=== PATIENT | male | born 1955 | race Caucasian/White ===

== ENCOUNTER 2017-06-28 07:02 | Emergency (ER) | payer MEDICARE ==
--- NOTE | 2017-06-28 07:32 | EDM.PDOC ---
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 David Fang.He claims he has been careful and not lifting anything heavy and Pt claims that he was doing well until today morning. He felt a pop in his right lower chest today morning and since has been having pain. no fever or chills. No shortness of breath. Onset: Today Onset Date: 06/28/17 Onset Time: 06:00 Location: Reports: Chest Quality: Reports: Ache Severity: Moderate Improves with: Reports: None Worsens with: Reports: None Associated Symptoms: Reports: Chest Pain. Denies: Confusion, Cough, Fever/ Chills, Nausea/Vomiting, Rash, Seizure, Shortness of Breath, Syncope, Weakness - Related Data Allergies Allergy/AdvReac Type Severity Reaction Status Date / Time fentanyl Allergy Cannot Verified 06/28/17 08:32 Remember morphine Allergy Cannot Verified 06/28/17 08:32 Remember Serotonin 5HT-3 Antagonists Allergy Cannot Verified 06/28/17 08:32 Remember Home Meds: Home Meds Aspirin [Ecotrin] 81 mg PO DAILY 07/29/14 [History] Gabapentin 1 tab PO TID 07/29/14 [History] Insulin Isophane NPH, Human [NovoLIN N] 80 units SQ BID 07/29/14 [History] Insulin Regular, Human [Novolin R] 65 units SQ BID 07/29/14 [History] Lisinopril 1 tab PO DAILY 07/29/14 [History] Metoprolol Tartrate [Lopressor] 100 mg PO BID 07/29/14 [History] Multivits-Min/FA/Lycopene/Lut [Elissa Senior] 1 tab PO DAILY 07/29/14 [History] Zolpidem [Ambien] 1 tab PO BEDTIME 07/29/14 [History] amLODIPine Besylate [Amlodipine Besylate] 1 tab PO DAILY 07/29/14 [History] buPROPion [buPROPion XL] 2 tab PO DAILY 07/29/14 [History] lamoTRIgine [Lamotrigine] 200 mg PO BEDTIME 07/29/14 [History] Allopurinol [Zyloprim] 1 tab PO DAILY 06/28/17 [History] Furosemide 20 mg PO DAILY 06/28/17 [History] Hydrocodone/Acetaminophen [Hydrocodon-Acetaminoph 7.5-325] 1 tab PO Q6HR PRN [History] Leflunomide [Arava] 1 tab PO DAILY 06/28/17 [History] Potassium Chloride 1 tab PO DAILY 06/28/17 [History] clonazePAM [Clonazepam] 1 mg PO BID 06/28/17 [History] traMADol HCl [Tramadol HCl] 1 tab PO Q6HR PRN 06/28/17 [History] Past Medical History Other HEENT History: ELEM Other Cardiovascular History: stent 1993 Other Genitourinary History: BPH, fiborus Social & Family History - Tobacco Use Smoking Status *Q: Former Smoker Years of Tobacco use: 25 Used Tobacco, but Quit: Yes Month/Year Tobacco Last Used: october Second Hand Smoke Exposure: No - Alcohol Use Days Per Week of Alcohol Use: 0 - Recreational Drug Use Recreational Drug Use: No ED ROS GENERAL - Review of Systems Review Of Systems: See Below Constitutional: Denies: Fever, Chills HEENT: Denies: Rhinitis, Sinus Problem, Throat Pain, Throat Swelling Respiratory: Reports: Pleuritic Chest Pain. Denies: Wheezing, Cough, Sputum Cardiovascular: Denies: Chest Pain, Lightheadedness Endocrine: Denies: Fatigue GI/Abdominal: Denies: Abdominal Pain, Nausea, Vomiting : Denies: Dysuria, Flank Pain Musculoskeletal: Denies: Shoulder Pain, Arm Pain, Back Pain Skin: Reports: Bruising, Erythema. Denies: Pruritis, Rash Neurological: Denies: Confusion, Dizziness, Headache ED EXAM, GENERAL - Physical Exam Exam: See Below Exam Limited By: No Limitations General Appearance: Alert, WD/WN, No Apparent Distress Eye Exam: Bilateral Eye: EOMI, PERRL Ears: Normal External Exam, Normal Canal, Hearing Grossly Normal, Normal TMs Ear Exam: Bilateral Ear: Auricle Normal, Canal Normal, TM normal Nose: Normal Inspection, Normal Mucosa, No Blood Throat/Mouth: Normal Inspection, Normal Lips, Normal Teeth, Normal Gums, Normal Oropharynx, Normal Voice, No Airway Compromise Head: Atraumatic, Normocephalic Neck: Normal Inspection, Supple, Non-Tender, Full Range of Motion Respiratory/Chest: No Respiratory Distress, Lungs Clear, Normal Breath Sounds, No Accessory Muscle Use, Other (There is a midline incison seen over the sternum extending from sternal notch to xyphoid sternum. there is lear serous drainage. Also there is some swelling of the right chest with minimal skin erythema seen over the right pectoral region. on plaption pt is tender along the surgical site, more so over the right 4 and 5 costochondral junctions. there is postive crepitus felt in the same region.) Cardiovascular: Normal Peripheral Pulses, Regular Rate, Rhythm, No Edema, No Gallop, No JVD, No Murmur, No Rub Peripheral Pulses: 2+: Brachial (L), Brachial (R), Radial (L), Radial (R) GI/Abdominal: Normal Bowel Sounds, Soft, Non-Tender, No Organomegaly, No Distention, No Abnormal Bruit, No Mass Extremities: Normal Inspection, Normal Range of Motion, Non-Tender, Normal Capillary Refill, No Pedal Edema Neurological: Alert, Oriented, CN II-XII Intact, Normal Cognition, Normal Gait, Normal Reflexes, No Motor/Sensory Deficits Skin Exam: Warm, Intact Course - Vital Signs Text/Narrative:: Pt's chest xray appears normal, all the three sternal plates are seen in place. As pt has been having right lower chest wall pain with crepitus, I did get CT Chest, to get a 3 dimensional view of the plate. On CT scan of chest, the plate does appear in place. His CBC is normal. He has mild swelling of the right pectoral region, probably post-surgical swelling. I do not see any signs of infection of the surgical wound. I did call Dr. Fang and discuss patient with him. He reassured that, if there is no acute deformity and CT chest appears normal no further workup necessary. Advised patient to rest and take it easy. Avoid lifting heavy weight. Continue home medications and pain meds as prescribed. Dr. Fang has advised patient to call his office [place] on Thursday and set up appointment to be seen on Thursday. Pt understands and agrees with the plan. Last Recorded V/S: Last Vital Signs Temp 95.9 F 06/28/17 07:03 Pulse 70 06/28/17 07:33 Resp 20 06/28/17 07:33 BP 160/71 H 06/28/17 07:33 Pulse Ox 99 06/28/17 07:03 - Orders/Labs/Meds Orders: Active Orders 24 hr Category Date Time Status Chest 2V [CR] Stat Exams 06/28/17 07:26 Taken Chest wo Cont [CT] Stat Exams 06/28/17 Taken Labs: Laboratory Tests 06/28/17 Range/Units 07:55 WBC 10.4 (4.0-11.0) K/uL RBC 4.19 L (4.50-6.50) M/uL Hgb 12.3 L (13.0-18.0) g/dL Hct 37.0 L (40.0-54.0) % MCV 88 (76-96) fL MCH 29.4 (27.0-32.0) pg MCHC 33.2 (31.0-35.0) g/dL RDW 16.4 H (11.0-16.0) % Plt Count 147 L (150-400) K/uL MPV 9.7 (6.0-10.0) fL Neut % (Auto) 80.2 H (45.0-70.0) % Lymph % (Auto) 9.4 L (20.0-40.0) % [place] % (Auto) 7.9 (3.0-10.0) % Eos % (Auto) 2.2 (1.0-5.0) % Baso % (Auto) 0.3 (0.0-0.5) % Neut # (Auto) 8.35 H (2.00-7.50) K/uL Lymph # (Auto) 0.98 L (1.50-4.00) K/uL [place] # (Auto) 0.82 H (0.20-0.80) K/uL Eos # (Auto) 0.23 (0.04-0.40) K/uL Baso # (Auto) 0.03 (0.02-0.10) K/uL Departure - Departure Time of Disposition: 09:00 Disposition: Home, Self-Care 01 Condition: Fair Clinical Impression: Pain at surgical incision - Discharge Information Referrals: PCP,None [Primary Care Provider] - Forms: ED Department Discharge Additional Instructions: Pt's chest xray appears normal, all the three sternal plates are seen in place. As pt has been having right lower chest wall pain with crepitus, I did get CT Chest, to get a 3 dimensional view of the plate. On CT scan of chest, the plate does appear in place. His CBC is normal. He has mild swelling of the right pectoral region, probably post-surgical swelling. I do not see any signs of infection of the surgical wound. I did call Dr. Fang and discuss patient with him. He reassured that, if there is no acute deformity and CT chest appears normal no further workup necessary. Advised patient to rest and take it easy. Avoid lifting heavy weight. Continue home medications and pain meds as prescribed. Dr. Fang has advised patient to call his office [place] on Thursday and set up appointment to be seen on Thursday. Pt understands and agrees with the plan. - Problem List & Annotations (1) Pain at surgical incision SNOMED Code(s): 030609647 Code(s): L76.82 - OTH POSTPROCEDURAL COMPLICATIONS OF SKIN, SUBCU Status: Acute Current Visit: Yes - Problem List Review Problem List Initiated/Reviewed/Updated: Yes - My Orders Last 24 Hours: My Active Orders 06/28/17 Chest wo Cont [CT] Stat 06/28/17 07:26 Chest 2V [CR] Stat - Assessment/Plan Last 24 Hours: My Active Orders 06/28/17 Chest wo Cont [CT] Stat 06/28/17 07:26 Chest 2V [CR] Stat Assessment:: S/P sternal plating with post surgical pain Plan: Pt's chest xray appears normal, all the three sternal plates are seen in place. As pt has been having right lower chest wall pain with crepitus, I did get CT Chest, to get a 3 dimensional view of the plate. On CT scan of chest, the plate does appear in place. His CBC is normal. He has mild swelling of the right pectoral region, probably post-surgical swelling. I do not see any signs of infection of the surgical wound. I did call Dr. Fang and discuss patient with him. He reassured that, if there is no acute deformity and CT chest appears normal no further workup necessary. Advised patient to rest and take it easy. Avoid lifting heavy weight. Continue home medications and pain meds as prescribed. Dr. Fang has advised patient to call his office [place] on Thursday and set up appointment to be seen on Thursday. Pt understands and agrees with the plan.
[2017-06-28 07:34] VITALS: BP 160/71
--- NOTE | 2017-06-29 03:42 | CR ---
PA AND LATERAL CHEST, 06/28/17 Comparison made to a prior exam dated 11/26/16. The heart remains enlarged, unchanged The patient is status post median sternotomy. There is pleural thickening in the left hemithorax where there is blunting of the left costophrenic angle consistent with a left pleural effusion or pleural scar. There are also mild atelectatic changes in the left lung base. The right lung is clear. No other significant findings. [id number] [facility]
--- NOTE | 2017-06-29 03:51 | CT ---
UNENHANCED CHEST CT, 06/28/17 Multislice acquisition through the chest without IV contrast was performed. No priors. Breathing motion artifact degrades image quality. There is a small left pleural effusion. It does appear to be slightly loculated laterally. There are atelectatic changes within the left lung base. The lungs are otherwise clear. No pneumothorax. The heart is enlarged. There are coronary artery calcifications. No significant pericardial effusion. There is soft tissue emphysema noted anteriorly at the incision site and adjacent to the internal sternal fixation devices This may be related to the prior surgery. A gas-forming infectious process cannot, however, be excluded . No hilar or mediastinal adenopathy. The spleen and liver appear mildly prominent, however they are incompletely visualized. There is a small amount of ascites noted adjacent to the liver. [id number] [facility]
== END 2017-06-28 09:02 | disposition home or self-care (01) ==
LOC: LB.ED 07:02
DX: G89.18 Other acute postprocedural pain (principal); Z98.890 Other specified postprocedural states; Z88.8 Allergy status to other drugs, medicaments and biological substances; Z88.5 Allergy status to narcotic agent; Z79.4 Long term (current) use of insulin; Z79.899 Other long term (current) drug therapy; Z87.891 Personal history of nicotine dependence; Z96.7 Presence of other bone and tendon implants
CPT/HCPCS: 36415; 71046; 71250; 85025; 99282; 99285-25

== ENCOUNTER 2018-10-26 09:18 | Emergency (ER) | payer MEDICARE, MEDICAID ==
--- NOTE | 2018-10-26 09:42 | EDM.PDOC ---
ED HPI GENERAL MEDICAL PROBLEM - General Chief Complaint: Lower Extremity Injury/Pain Stated Complaint: FALL AT HOME; HIT HEAD Time Seen by Provider: 10/26/18 09:40 Source of Information: Reports: Patient, RN History Limitations: Reports: No Limitations - History of Present Illness INITIAL COMMENTS - FREE TEXT/NARRATIVE: 63 yr male presents with fall from 2 days ago in his home, he presents with ambulance. States he thought he would get better, but has increase in pain to right knee, left toes, neck and head. States he hit hard and is worried about a head fracture. Right Knee Pain Score (Numeric/FACES): 8 - Related Data Allergies Allergy/AdvReac Type Severity Reaction Status Date / Time morphine Allergy Cannot Verified 10/26/18 10:24 Remember Serotonin 5HT-3 Antagonists Allergy Cannot Verified 10/26/18 10:24 Remember fentanyl AdvReac Cannot Verified 10/26/18 10:24 Remember Home Meds: Home Meds Aspirin [Ecotrin] 325 mg PO DAILY 07/29/14 [History] Gabapentin 2 tab PO QPM 07/29/14 [History] Insulin Isophane NPH, Human [NovoLIN N] See Protocol SQ TIDMEALS 07/29/14 [ History] Insulin Regular, Human [Novolin R] See Protocol SQ TIDMEALS 07/29/14 [History] Lisinopril 40 mg PO DAILY 07/29/14 [History] Metoprolol Tartrate [Lopressor] 50 mg PO BID 07/29/14 [History] Multivits-Min/FA/Lycopene/Lut [Sentry Senior] 1 tab PO DAILY 07/29/14 [History] amLODIPine Besylate [Amlodipine Besylate] 10 mg PO DAILY 07/29/14 [History] buPROPion [buPROPion XL] 300 tab PO DAILY 07/29/14 [History] Furosemide 60 mg PO DAILY 06/28/17 [History] lamoTRIgine [Lamictal] 200 mg PO DAILY 06/28/17 [History] Insulin Regular, Human [Novolin R] See Protocol SQ TID PRN 09/15/18 [History] Nicotine Polacrilex [Nicotine Lozenge] 2 mg PO DAILY PRN 09/15/18 [History] QUEtiapine Fumarate [Quetiapine Fumarate] 200 mg PO QPM 09/15/18 [History] Sildenafil Citrate 60 mg PO DAILY PRN 09/15/18 [History] Allopurinol [Zyloprim] 150 mg PO QPM 09/19/18 [History] Allopurinol [Zyloprim] 300 mg PO DAILY 09/19/18 [History] Docusate Sodium 100 mg PO DAILY 09/19/18 [History] Nitroglycerin [Nitrostat] 0.4 mg PO ASDIRECTED PRN 09/19/18 [History] QUEtiapine [SEROquel] 100 mg PO DAILY 09/19/18 [History] Vitamin B6-pyridOXINE 50 mg PO DAILY 09/19/18 [History] atorvaSTATin [Lipitor] 20 mg PO BEDTIME 09/19/18 [History] predniSONE [Prednisone] 5 mg PO DAILY 09/19/18 [History] traMADol [Ultram] 50 mg PO TID 09/19/18 [History] Past Medical History HEENT History: Reports: Impaired Vision Other HEENT History: [place] Cardiovascular History: Reports: High Cholesterol, Hypertension, [place], Stents Other Cardiovascular History: stent 1993 Respiratory History: Reports: Other (See Below) Other Respiratory History: Emphysema Genitourinary History: Reports: Diabetic Nephropathy, Urinary Incontinence Other Genitourinary History: BPH, fiborus Musculoskeletal History: Reports: Arthritis, Gout, Other (See Below) Other Musculoskeletal History: finger fractures Psychiatric History: Reports: Bipolar, Depression, Panic Attack Endocrine/Metabolic History: Reports: Diabetes, Type II Dermatologic History: Reports: Other (See Below) Other Dermatologic History: Medication for SA lesions - Past Surgical History Musculoskeletal Surgical History: Reports: None Social & Family History - Caffeine Use Caffeine Use: Reports: Coffee, Soda ED ROS GENERAL - Review of Systems Review Of Systems: See Below Constitutional: Reports: No Symptoms HEENT: Reports: Glasses, Other (Head and neck pain) Respiratory: Reports: No Symptoms Cardiovascular: Reports: Edema Endocrine: Reports: No Symptoms GI/Abdominal: Reports: No Symptoms : Reports: No Symptoms Musculoskeletal: Reports: Neck Pain, Leg Pain (Pain to right knee), Foot Pain ( Pain to toes to left foot ) Skin: Reports: Bruising (left toes), Other (abrasion back of head) Neurological: Reports: No Symptoms Psychiatric: Reports: No Symptoms Hematologic/Lymphatic: Reports: No Symptoms ED EXAM, GENERAL - Physical Exam Exam: See Below Exam Limited By: No Limitations General Appearance: Alert, No Apparent Distress Ears: Hearing Grossly Normal Nose: Normal Inspection. No: Nasal Tenderness Throat/Mouth: Normal Inspection, Normal Lips, Normal Voice, No Airway Compromise Head: Normocephalic, Other (abrasion to back of head) Neck: Normal Inspection, Supple Respiratory/Chest: No Respiratory Distress, Lungs Clear, Normal Breath Sounds Cardiovascular: Normal Peripheral Pulses, Regular Rate, Rhythm, Other (edema noted to lower legs, increased to right lower leg) Peripheral Pulses: 2+: Dorsalis Pedis (L), Dorsalis Pedis (R) GI/Abdominal: Normal Bowel Sounds, Soft, Non-Tender (Male) Exam: Deferred Rectal (Males) Exam: Deferred Back Exam: Normal Inspection Extremities: Normal Capillary Refill, Pedal Edema, Limited Range of Motion ( Limited ROM r/t tenderness to right knee and left toes. Good strength to toes and legs.) Neurological: Alert, Oriented, Normal Cognition Psychiatric: Normal Affect, Normal Mood Skin Exam: Warm, Dry, Normal Color Course - Vital Signs Last Recorded V/S: Last Vital Signs Temp 98.0 F 10/26/18 12:36 Pulse 55 L 10/26/18 12:36 Resp 16 10/26/18 12:36 BP 120/61 10/26/18 12:36 Pulse Ox 96 10/26/18 12:36 - Orders/Labs/Meds Orders: Active Orders 24 hr Category Date Time Status Cardiac Monitoring [RC] .As Directed Care 10/26/18 09:40 Active Labs: Laboratory Tests 10/26/18 10/26/18 10/26/18 Range/Units 09:50 10:30 10:30 WBC 7.9 D (4.0-11.0) K/uL RBC 3.27 L (4.50-6.50) M/uL Hgb 11.9 L (13.0-18.0) g/dL Hct 34.2 L (40.0-54.0) % MCV 105 H (76-96) fL MCH 36.4 H D (27.0-32.0) pg MCHC 34.8 (31.0-35.0) g/dL RDW 22.6 H (11.0-16.0) % Plt Count 121 L D (150-400) K/uL MPV 9.8 (6.0-10.0) fL Neut % (Auto) 76.6 H (45.0-70.0) % Lymph % (Auto) 11.8 L (20.0-40.0) % [place] % (Auto) 7.5 (3.0-10.0) % Eos % (Auto) 3.7 (1.0-5.0) % Baso % (Auto) 0.4 (0.0-0.5) % Neut # (Auto) 6.01 (2.00-7.50) K/uL Lymph # (Auto) 0.93 L (1.50-4.00) K/uL [place] # (Auto) 0.59 (0.20-0.80) K/uL Eos # (Auto) 0.29 (0.04-0.40) K/uL Baso # (Auto) 0.03 (0.02-0.10) K/uL Sodium 138 (136-145) mmol/L Potassium 4.6 (3.5-5.1) mmol/L Chloride 99 (98-107) mmol/L Carbon Dioxide 32.6 H D (21.0-32.0) mmol/L Anion Gap 11.0 (5.0-15.0) mmol/L BUN 20 (8-26) mg/dL Creatinine 1.35 H (0.70-1.30) mg/dL Est Cr Clr Drug Dosing 59.88 mL/min Estimated GFR (MDRD) 53 L (>60) MLS/MIN BUN/Creatinine Ratio 14.8 (6-25) Glucose 145 H (74-100) mg/dL Calcium 8.9 (8.5-10.1) mg/dL Total Bilirubin 1.3 H (0.0-1.0) mg/dL AST 42 H (15-37) U/L ALT 39 (12-78) U/L Alkaline Phosphatase 183 H (46-116) U/L Troponin I < 0.017 (0.000-0.060) ng/mL B-Natriuretic Peptide 268 H (0-125) pg/mL Total Protein 7.7 (6.4-8.2) g/dL Albumin 3.4 (3.4-5.0) g/dL Globulin 4.3 H (2.2-4.2) g/dL Albumin/Globulin Ratio 0.8 (0.8-2.0) Meds: Medications Discontinued Medications Generic Name Dose Route Start Last Admin Trade Name José KIMBLE Reason Stop Dose Admin Ketorolac Tromethamine 30 mg 10/26/18 12:51 10/26/18 12:57 Toradol IM 10/26/18 12:52 30 mg ONETIME ONE Administration Ketorolac Tromethamine Confirm 10/26/18 13:01 Toradol Administered 10/26/18 13:02 Dose 30 mg .ROUTE .STK-MED ONE - Re-Assessments/Exams Free Text/Narrative Re-Assessment/Exam: 10/27/18 07:49 LE This fall in the home was a couple days prior. States he thought he would start feeling better and so didn't come in to clinic or ER. Continued pain to back of head, neck, right knee and left toes. Some ecchymosis noted to left toes, small abrasion to occiput of head. CT of head and neck. No acute fractures noted, but some artifact with CT of neck. Pt has been ambulatory in his apartment and to waiting area of the apartment building. X-ray of right knee and left foot, with no fracture noted to right knee and fracture noted to 2nd toe of left foot, non displaced fracture. Ice applied to area and toe taped to third toe. Notified pt of results of labs, CT and x-ray. Pt requesting pain medication. He does have Tramadol at home. Toradol 30 mg IM given. Discussed use of Hydrocodone. Pt states he doesn't want to be addicted to narcotics, but states is having significant pain. Rx for Hydrocodone/APAP 5/325 mg one half tablet bid X 3 days. RTC to PCP next week for follow-up or sooner if increase in pain. Departure - Departure Time of Disposition: 13:09 Disposition: Home, Self-Care 01 Condition: Good Clinical Impression: Fracture of toe of left foot, Swelling of both lower extremities - Discharge Information *PRESCRIPTION DRUG MONITORING PROGRAM REVIEWED*: Not Applicable *COPY OF PRESCRIPTION DRUG MONITORING REPORT IN PATIENT JACKY: Not Applicable Referrals: PCP,None [Primary Care Provider] - Forms: ED Department Discharge Additional Instructions: Wear shoes when getting up/walking. Take your time from lying to sitting - no quick movements. Ice to toes and knee for 20 minutes 4 times/day as needed. Follow up with primary DrMarry for next week November 02 at 0830 am. - My Orders Last 24 Hours: My Active Orders 10/26/18 09:40 Cardiac Monitoring [RC] .As Directed - Assessment/Plan Last 24 Hours: My Active Orders 10/26/18 09:40 Cardiac Monitoring [RC] .As Directed Plan: Fracture of 2nd left toe after fall in home 2 days ago, muscle strain to neck and right knee pain: X-rays and CT completed, no fracture to neck or head noted, but some artifact to cervical spine, Recommend use of ice to toe and neck as needed. Continue medications as at home. Toradol 30 mg IM X one dose. Rx for Hydrocodone/APAP one half tablet bid X 3 days prn. RTC next week with PCP.
--- NOTE | 2018-10-26 11:23 | CT ---
DATE OF SERVICE: 10/26/2018 CLINICAL DATA: Fall Cervical spine CT: Multislice axial acquisition from the base of the skill to T3 was performed. Axial images and sagittal and coronal reformations are reviewed. Motion artifact degrades image quality on most of the images. The vertebral bodies are of average height. I do not see a fracture, however, subtle fractures cannot be excluded. There is a slight reversal of normal cervical lordosis on the sagittal reformations. This is most likely positional or due to muscle spasm. There is degenerative disc disease throughout the cervical spine. There is facet joint hypertrophy at multiple levels. The soft tissues are unremarkable. The visualized lung apices are clear. Impression: No evidence of fracture, however, significant motion artifact degrades image quality. Repeat exam should be considered. MTDD
--- NOTE | 2018-10-26 11:26 | CT ---
DATE OF SERVICE: 10/26/2018 CLINICAL DATA: Fall Unenhanced brain CT: Multislice acquisition through the brain without IV contrast was performed. No priors. There is mild diffuse cerebral atrophy. No masses or mass effect. No intracranial hemorrhage. No evidence of acute or subacute infarct. There is minimal mucosal thickening in the ethmoid sinuses consistent with chronic sinusitis. No fracture. Impression: No acute intracranial abnormalities. MTDD
--- NOTE | 2018-10-26 11:28 | CR ---
Date of Service: 10/26/18 Clinical Data: trauma AP PORTABLE CHEST: The is exam is under-penetrated. Comparison is made to a prior exam dated 04/26/18. The heart is enlarged. It is probably accentuated by the poor inspiration. The visualized lungs are clear. No pneumothorax. No pleural effusions. The patient is status post median sternotomy. [id number] [facility]
--- NOTE | 2018-10-26 11:31 | CR ---
Date of Service: 10/26/18 Clinical Data: fell at home RIGHT KNEE: Mild tricompartment osteoarthritic changes. There is a small joint effusion. No acute abnormalities. There are vascular calcifications in the soft tissues. [id number] [facility]
--- NOTE | 2018-10-26 11:38 | CR ---
Date of Service: 10/26/18 Clinical Data: fell at home LEFT FOOT: There is soft tissue swelling over the dorsum of the foot. There is a minimally displaced oblique fracture through the mid and distal proximal phalanx of the second toe. There is also a questionable lucency through the proximal phalanx of the fourth toe. No other acute abnormalities. There are osteoarthritic changes involving multiple joints. There is a plantar calcaneal spur. [id number] [facility]
[2018-10-26 12:38] VITALS: BP 120/61; PULSE 55
[2018-10-26] MEDS ORDERED: Ketorolac 30 MG/ML SDV IM ONE (12:51)
[2018-10-26] MEDS ORDERED: Ketorolac 30 MG/ML SDV ONE (13:01)
== END 2018-10-26 13:09 | disposition home or self-care (01) ==
LOC: LB.ED 09:18
DX: S92.502A Displaced unspecified fracture of left lesser toe(s), initial encounter for closed fracture (principal); E11.21 Type 2 diabetes mellitus with diabetic nephropathy; I10 Essential (primary) hypertension; I25.2 Old myocardial infarction; E78.00 Pure hypercholesterolemia, unspecified; F31.9 Bipolar disorder, unspecified; F41.0 Panic disorder [episodic paroxysmal anxiety]; Z88.5 Allergy status to narcotic agent; Z88.8 Allergy status to other drugs, medicaments and biological substances; Z79.82 Long term (current) use of aspirin; Z79.4 Long term (current) use of insulin; Z79.899 Other long term (current) drug therapy; W22.8XXA Striking against or struck by other objects, initial encounter
CPT/HCPCS: 36415; 70450; 71045; 72125; 73560; 73630; 80053; 83880; 84484; 85025; 96372; 99284; A0425; A0429; J1885

== ENCOUNTER 2019-03-22 10:45 | Emergency (ER) | payer MEDICARE, MEDICAID ==
[2019-03-22] MEDS: Naloxone 2 MG/2 ML Syringe IM PRN (10:50)
[2019-03-22] MEDS ORDERED: Naloxone 2 MG/2 ML Syringe IVPUSH PRN (10:53)
--- NOTE | 2019-03-22 10:54 | EDM.PDOC ---
ED HPI GENERAL MEDICAL PROBLEM - General Stated Complaint: CONFUSION Time Seen by Provider: 03/22/19 10:45 Source of Information: Reports: Patient, EMS History Limitations: Reports: Altered Mental Status - History of Present Illness INITIAL COMMENTS - FREE TEXT/NARRATIVE: This is a 63yo M brought in by EMS for confusion. He is not baseline and appears delirius. He is able to speak but at times is incoherent. His neighbors called due to his erratic behavior and slurred speech. He denies any chest pain but does have some shortness of breath. He is a poor historian today. He cannot tell us the date or time but does recall it is 2019 and President Elli is in office. Onset: Unknown/Unsure Duration: Constant Location: Reports: Generalized Severity: Moderate Improves with: Reports: None Worsens with: Reports: None Associated Symptoms: Reports: Confusion, Shortness of Breath, Weakness - Related Data Allergies Allergy/AdvReac Type Severity Reaction Status Date / Time morphine Allergy Cannot Verified 03/22/19 12:02 Remember Serotonin 5HT-3 Antagonists Allergy Cannot Verified 03/22/19 12:02 Remember fentanyl AdvReac Cannot Verified 03/22/19 12:02 Remember Home Meds: Home Meds Aspirin [Ecotrin] 325 mg PO DAILY 07/29/14 [History] Gabapentin 2 tab PO QPM 07/29/14 [History] Insulin Isophane NPH, Human [NovoLIN N] See Protocol SQ TIDMEALS 07/29/14 [ History] Lisinopril 40 mg PO DAILY 07/29/14 [History] Metoprolol Tartrate [Lopressor] 50 mg PO BID 07/29/14 [History] Multivits-Min/FA/Lycopene/Lut [Sentry Senior] 1 tab PO DAILY 07/29/14 [History] amLODIPine Besylate [Amlodipine Besylate] 10 mg PO DAILY 07/29/14 [History] buPROPion [buPROPion XL] 300 tab PO DAILY 07/29/14 [History] lamoTRIgine [Lamictal] 200 mg PO DAILY 06/28/17 [History] Insulin Regular, Human [Novolin R] See Protocol SQ TID PRN 09/15/18 [History] Nicotine Polacrilex [Nicotine Lozenge] 2 mg PO DAILY PRN 09/15/18 [History] QUEtiapine Fumarate [Quetiapine Fumarate] 200 mg PO QPM 09/15/18 [History] Sildenafil Citrate 60 mg PO DAILY PRN 09/15/18 [History] Docusate Sodium 100 mg PO DAILY 09/19/18 [History] Nitroglycerin [Nitrostat] 0.4 mg PO ASDIRECTED PRN 09/19/18 [History] QUEtiapine [SEROquel] 100 mg PO DAILY 09/19/18 [History] Vitamin B6-pyridOXINE 50 mg PO DAILY 09/19/18 [History] allopurinoL [Zyloprim] 150 mg PO QPM 09/19/18 [History] allopurinoL [Zyloprim] 300 mg PO DAILY 09/19/18 [History] atorvaSTATin [Lipitor] 20 mg PO BEDTIME 09/19/18 [History] predniSONE [Prednisone] 5 mg PO DAILY 09/19/18 [History] traMADol [Ultram] 50 mg PO TID 09/19/18 [History] Bumetanide 1 tab PO DAILY 03/22/19 [History] Furosemide 1 tab PO DAILY 03/22/19 [History] Hydrocodone/Acetaminophen [Hydrocodon-Acetaminoph 7.5-325] 1 tab PO TID PRN 10/02 [History] metOLazone [Metolazone] 1 tab PO DAILY 03/22/19 [History] Past Medical History HEENT History: Reports: Impaired Vision Other HEENT History: [place] Cardiovascular History: Reports: High Cholesterol, Hypertension, [place], Stents Other Cardiovascular History: stent 1993 Respiratory History: Reports: Other (See Below) Other Respiratory History: Emphysema Genitourinary History: Reports: Diabetic Nephropathy, Urinary Incontinence Other Genitourinary History: BPH, fiborus Musculoskeletal History: Reports: Arthritis, Gout, Other (See Below) Other Musculoskeletal History: finger fractures Neurological History: Reports: Neuropathy, Diabetic Psychiatric History: Reports: Bipolar, Depression, Panic Attack Endocrine/Metabolic History: Reports: Diabetes, Type II Hematologic History: Reports: None Immunologic History: Reports: None Oncologic (Cancer) History: Reports: None Dermatologic History: Reports: Other (See Below) Other Dermatologic History: Medication for SA lesions - Infectious Disease History Infectious Disease History: Reports: Chicken Pox, Measles - Past Surgical History Musculoskeletal Surgical History: Reports: None Social & Family History - Family History Family Medical History: Noncontributory - Caffeine Use Caffeine Use: Reports: Coffee, Soda ED ROS GENERAL - Review of Systems Review Of Systems: Comprehensive ROS is negative, except as noted in HPI. ED EXAM, GENERAL - Physical Exam Exam: See Below Exam Limited By: Altered Mental Status General Appearance: WD/WN, Moderate Distress Eye Exam: Bilateral Eye: EOMI, PERRL Ears: Normal External Exam Nose: Normal Inspection Throat/Mouth: Normal Inspection Head: Atraumatic, Normocephalic Neck: Normal Inspection Respiratory/Chest: Wheezing Cardiovascular: Normal Peripheral Pulses, Regular Rate, Rhythm Peripheral Pulses: 2+: Dorsalis Pedis (L), Dorsalis Pedis (R) GI/Abdominal: Normal Bowel Sounds Back Exam: Normal Inspection Extremities: Normal Inspection Neurological: Inattentive, Confused, Disoriented, Slow to Respond Skin Exam: Dry, Intact, Cool Course - Vital Signs Last Recorded V/S: Last Vital Signs Temp 36.9 C 03/22/19 10:45 Pulse 63 03/22/19 12:01 Resp 24 H 03/22/19 12:01 BP 121/72 03/22/19 12:01 Pulse Ox 93 L 03/22/19 12:01 - Orders/Labs/Meds Orders: Active Orders 24 hr Category Date Time Status EKG Documentation Completion [RC] ASDIRECTED Care 03/22/19 11:36 Active Chest 1V Frontal [CR] Stat Exams 03/22/19 10:52 Taken DRUG SCREEN, URINE [URCHEM] Stat Lab 03/22/19 10:52 Ordered UA RFX ROSE MARIE AND CULT IF INDIC [URIN] Stat Lab 03/22/19 10:53 Ordered Labs: Laboratory Tests 03/22/19 03/22/19 Range/Units 10:52 10:55 WBC 8.4 (4.0-11.0) K/uL RBC 3.39 L (4.50-6.50) M/uL Hgb 10.2 L (13.0-18.0) g/dL Hct 31.3 L (40.0-54.0) % MCV 92 (76-96) fL MCH 30.1 (27.0-32.0) pg MCHC 32.6 (31.0-35.0) g/dL RDW 17.0 H (11.0-16.0) % Plt Count 171 D (150-400) K/uL MPV 10.3 H (6.0-10.0) fL Neut % (Auto) 77.8 H (45.0-70.0) % Lymph % (Auto) 9.6 L (20.0-40.0) % [place] % (Auto) 7.2 (3.0-10.0) % Eos % (Auto) 4.8 (1.0-5.0) % Baso % (Auto) 0.6 H (0.0-0.5) % Neut # (Auto) 6.51 (2.00-7.50) K/uL Lymph # (Auto) 0.80 L (1.50-4.00) K/uL [place] # (Auto) 0.60 (0.20-0.80) K/uL Eos # (Auto) 0.40 (0.04-0.40) K/uL Baso # (Auto) 0.05 (0.02-0.10) K/uL Sodium 132 L (136-145) mmol/L Potassium 3.9 (3.5-5.1) mmol/L Chloride 94 L (98-107) mmol/L Carbon Dioxide 25.5 (21.0-32.0) mmol/L Anion Gap 16.4 H (5.0-15.0) mmol/L BUN 87 H* D (8-26) mg/dL Creatinine 3.06 H* D (0.70-1.30) mg/dL Est Cr Clr Drug Dosing TNP Estimated GFR (MDRD) 21 L (>60) MLS/MIN BUN/Creatinine Ratio 28.4 H (6-25) Glucose 271 H D (74-100) mg/dL Calcium 8.2 L (8.5-10.1) mg/dL Total Bilirubin 1.2 H (0.0-1.0) mg/dL AST 47 H (15-37) U/L ALT 36 (12-78) U/L Alkaline Phosphatase 169 H (46-116) U/L Troponin I 0.772 H* D (0.000-0.060) ng/mL B-Natriuretic Peptide 2307 H D (0-125) pg/mL Total Protein 7.3 (6.4-8.2) g/dL Albumin 2.5 L (3.4-5.0) g/dL Globulin 4.8 H (2.2-4.2) g/dL Albumin/Globulin Ratio 0.5 L (0.8-2.0) TSH, Ultra Sensitive 3.256 (0.358-3.740) uIU/mL Meds: Medications Discontinued Medications Generic Name Dose Route Start Last Admin Trade Name Freq PRN Reason Stop Dose Admin Aspirin 324 mg 03/22/19 11:41 03/22/19 11:42 Aspirin PO 03/22/19 11:42 324 mg ONETIME ONE Administration Enoxaparin Sodium 140 mg 03/22/19 12:07 03/22/19 12:19 Lovenox 1 mg/kg (140 mg) 03/22/19 12:08 140 mg SUBCUT Administration ONETIME ONE Furosemide 40 mg 03/22/19 12:53 03/22/19 12:58 Lasix IVPUSH 03/22/19 12:54 40 mg NOW ONE Administration Furosemide Confirm 03/22/19 13:03 Lasix Administered 03/22/19 13:04 Dose 40 mg .ROUTE .STK-MED ONE Naloxone HCl 0.1 mg 03/22/19 10:53 Narcan IVPUSH ONETIME PRN Other Naloxone HCl 2 mg 03/22/19 11:50 03/22/19 10:50 Narcan IM 2 mg ONETIME PRN Administration Other Departure - Departure Time of Disposition: 13:00 Disposition: DC/Tfer to Acute Hospital 02 Condition: Undetermined Clinical Impression: NSTEMI (non-ST elevated myocardial infarction), Delirium CHF exacerbation Qualifiers: Heart failure type: unspecified Qualified Code(s): I50.9 - Heart failure, unspecified ARF (acute renal failure) Qualifiers: Acute renal failure type: unspecified Qualified Code(s): N17.9 - Acute kidney failure, unspecified - Discharge Information Referrals: PCP,None [Primary Care Provider] - Sepsis Event Note - Focused Exam Vital Signs: Vital Signs Temp Pulse Resp BP Pulse Ox 03/22/19 12:01 63 24 H 121/72 93 L 03/22/19 11:45 62 24 H 117/60 03/22/19 11:29 63 24 H 119/47 L 92 L 03/22/19 11:21 24 H 93 L 03/22/19 11:11 62 24 H 118/53 L 93 L 03/22/19 10:56 63 24 H 114/51 L 98 03/22/19 10:45 36.9 C 67 109/53 L 90 L Date Exam was Performed: 03/22/19 Time Exam was Performed: 13:53 - Problem List & Annotations (1) ARF (acute renal failure) SNOMED Code(s): 70393110 Code(s): N17.9 - ACUTE KIDNEY FAILURE, UNSPECIFIED Status: Acute Priority : High Current Visit: Yes Qualifiers: Acute renal failure type: unspecified Qualified Code(s): N17.9 - Acute kidney failure, unspecified (2) CHF exacerbation SNOMED Code(s): 385645532, 71507922646980 Code(s): I50.9 - HEART FAILURE, UNSPECIFIED Status: Acute Priority: High Current Visit: Yes Qualifiers: Heart failure type: unspecified Qualified Code(s): I50.9 - Heart failure, unspecified (3) Delirium SNOMED Code(s): 0576042 Code(s): R41.0 - DISORIENTATION, UNSPECIFIED Status: Acute Current Visit : Yes (4) NSTEMI (non-ST elevated myocardial infarction) SNOMED Code(s): 72154813 Code(s): I21.4 - NON-ST ELEVATION (NSTEMI) MYOCARDIAL INFARCTION Status: Acute Priority: High Current Visit: Yes - Problem List Review Problem List Initiated/Reviewed/Updated: Yes - My Orders Last 24 Hours: My Active Orders 03/22/19 10:52 Chest 1V Frontal [CR] Stat DRUG SCREEN, URINE [URCHEM] Stat 03/22/19 10:53 UA RFX ROSE MARIE AND CULT IF INDIC [URIN] Stat 03/22/19 11:36 EKG Documentation Completion [RC] ASDIRECTED - Assessment/Plan Last 24 Hours: My Active Orders 03/22/19 10:52 Chest 1V Frontal [CR] Stat DRUG SCREEN, URINE [URCHEM] Stat 03/22/19 10:53 UA RFX ROSE MARIE AND CULT IF INDIC [URIN] Stat 03/22/19 11:36 EKG Documentation Completion [RC] ASDIRECTED Plan: Patient unable to be transferred to [facility]. We will transfer to [place] the next closest hospital. Transfer to Dr. Sen's care. Patient discharged in stable condition.
[2019-03-22] MEDS: Aspirin 81 MG Tab.Chew PO ONE (11:42)
[2019-03-22] MEDS: Enoxaparin 150 MG/1 ML Syringe SUBCUT ONE (12:19)
[2019-03-22] MEDS: Furosemide 40 MG/4 ML VIAL IVPUSH ONE (12:58)
--- NOTE | 2019-03-22 14:53 | CR ---
Date of Service: 03/22/19 Clinical Data: confusion AP CHEST: Comparison is made to a prior exam dated 10/26/18. The heart remains enlarged, unchanged. There is a stimulator device overlying the left lung apex. There is pulmonary vascular congestion with mild progression from the prior study. There is a subtle rounded density in the left midlung. This may be just confluence of densities. I cannot exclude a mass. Chest CT should be considered. There are mild interstitial changes throughout both lungs. The lungs are otherwise clear. No pneumothorax. No pleural effusions. [id number] MTDD
[2019-03-22] MEDS: Furosemide 40 MG/4 ML VIAL ONE (14:56)
[2019-03-22 15:05] VITALS: BP 134/57; PULSE 63
== END 2019-03-22 13:13 ==
LOC: LB.ED 10:45
DX: I21.4 Non-ST elevation (NSTEMI) myocardial infarction (principal); N17.9 Acute kidney failure, unspecified; I11.0 Hypertensive heart disease with heart failure; I50.9 Heart failure, unspecified; R41.0 Disorientation, unspecified; I25.2 Old myocardial infarction; J43.9 Emphysema, unspecified; E11.40 Type 2 diabetes mellitus with diabetic neuropathy, unspecified; E78.00 Pure hypercholesterolemia, unspecified; F32.9 Major depressive disorder, single episode, unspecified; Z88.5 Allergy status to narcotic agent; Z88.8 Allergy status to other drugs, medicaments and biological substances; Z88.6 Allergy status to analgesic agent; Z79.82 Long term (current) use of aspirin; Z79.899 Other long term (current) drug therapy; Z79.4 Long term (current) use of insulin; Z79.52 Long term (current) use of systemic steroids
CPT/HCPCS: 36415; 71045; 80053; 83880; 84443; 84484; 85025; 93005; 99285; A0425; A0429; A9270-GY; J1650; J1940; J2310

== ENCOUNTER 2019-09-20 11:59 | Emergency (ER) | payer MEDICARE, MEDICAID ==
[2019-09-20 13:26] VITALS: BP 135/66; PULSE 60
[2019-09-20] MEDS ORDERED: Sodium Chloride 0.9% 500 ML IV ONE (13:48)
--- NOTE | 2019-09-20 15:11 | EDM.PDOC ---
ED HPI GENERAL MEDICAL PROBLEM - General Chief Complaint: General Stated Complaint: POSSIBLE HIGH BLOOD SUGAR Time Seen by Provider: 09/20/19 12:15 Source of Information: Reports: Patient History Limitations: Reports: No Limitations - History of Present Illness INITIAL COMMENTS - FREE TEXT/NARRATIVE: Patient is a 64 y/o male, with PMHx significant for CHF, ARF, and NSTEMI, who presents with hyperglycemia. He states that he is eating cake and candy and using 200 units of insulin daily. Patient ran out of his insulin and was instructed to come to the ED by outpatient for work up. Glucose was > 400. Patient denies any symptoms including fever, SOB, chest pain, N/V/D, abdominal pain, dysuria, cough, or numbness/tingling. He comes in mostly for insulin prescriptions. - Related Data Allergies Allergy/AdvReac Type Severity Reaction Status Date / Time morphine Allergy Cannot Verified 09/20/19 12:45 Remember Serotonin 5HT-3 Antagonists Allergy Cannot Verified 09/20/19 12:45 Remember fentanyl AdvReac Cannot Verified 09/20/19 12:45 Remember Home Meds: Home Meds Aspirin [Ecotrin] 325 mg PO DAILY 07/29/14 [History] Gabapentin 2 tab PO QPM 07/29/14 [History] Insulin Isophane NPH, Human [NovoLIN N] See Protocol SQ TIDMEALS 07/29/14 [History] Lisinopril 40 mg PO DAILY 07/29/14 [History] Metoprolol Tartrate [Lopressor] 50 mg PO BID 07/29/14 [History] Multivits-Min/FA/Lycopene/Lut [Sentry Senior] 1 tab PO DAILY 07/29/14 [History] amLODIPine Besylate [Amlodipine Besylate] 10 mg PO DAILY 07/29/14 [History] buPROPion [buPROPion XL] 300 tab PO DAILY 07/29/14 [History] lamoTRIgine [Lamictal] 200 mg PO DAILY 06/28/17 [History] QUEtiapine Fumarate [Quetiapine Fumarate] 200 mg PO QPM 09/15/18 [History] Sildenafil Citrate 60 mg PO DAILY PRN 09/15/18 [History] Docusate Sodium 100 mg PO DAILY PRN 09/19/18 [History] Nitroglycerin [Nitrostat] 0.4 mg PO ASDIRECTED PRN 09/19/18 [History] QUEtiapine [SEROquel] 100 mg PO DAILY 09/19/18 [History] Vitamin B6-pyridOXINE 50 mg PO DAILY 09/19/18 [History] allopurinoL [Zyloprim] 150 mg PO QPM 09/19/18 [History] allopurinoL [Zyloprim] 300 mg PO DAILY 09/19/18 [History] atorvaSTATin [Lipitor] 20 mg PO BEDTIME 09/19/18 [History] predniSONE [Prednisone] 5 mg PO DAILY 09/19/18 [History] Bumetanide 1 tab PO DAILY 03/22/19 [History] metOLazone [Metolazone] 1 tab PO DAILY 03/22/19 [History] Insulin Glargine,Hum.Rec.Anlog [Basaglar Kwikpen U-100] 20 unit SQ BEDTIME 09/20/19 [History] Leflunomide 10 mg PO DAILY 09/20/19 [History] Past Medical History HEENT History: Reports: Impaired Vision Other HEENT History: [place] Cardiovascular History: Reports: High Cholesterol, Hypertension, [place], Stents Other Cardiovascular History: stent 1993 Respiratory History: Reports: Other (See Below) Other Respiratory History: Emphysema Genitourinary History: Reports: Diabetic Nephropathy, Urinary Incontinence Other Genitourinary History: BPH, fiborus Musculoskeletal History: Reports: Arthritis, Gout, Other (See Below) Other Musculoskeletal History: finger fractures Neurological History: Reports: Neuropathy, Diabetic Psychiatric History: Reports: Bipolar, Depression, Panic Attack Endocrine/Metabolic History: Reports: Diabetes, Type II Hematologic History: Reports: None Immunologic History: Reports: None Oncologic (Cancer) History: Reports: None Dermatologic History: Reports: Other (See Below) Other Dermatologic History: Medication for SA lesions - Infectious Disease History Infectious Disease History: Reports: Chicken Pox, Measles - Past Surgical History Musculoskeletal Surgical History: Reports: None Social & Family History - Family History Family Medical History: Noncontributory - Tobacco Use Smoking Status *Q: Current Every Day Smoker Years of Tobacco use: 14 Packs/Tins Daily: 1.5 Used Tobacco, but Quit: No - Caffeine Use Caffeine Use: Reports: Coffee - Recreational Drug Use Recreational Drug Use: No ED ROS GENERAL - Review of Systems Review Of Systems: Comprehensive ROS is negative, except as noted in HPI. ED EXAM, GENERAL - Physical Exam Exam: See Below Free Text/Narrative:: Patient is morbidly obese and with slight slurring of his speech. He is alert a nd oriented. Follows commands. Exam Limited By: No Limitations General Appearance: Alert, No Apparent Distress Eye Exam: Bilateral Eye: EOMI, Normal Inspection, PERRL Head: Atraumatic, Normocephalic Neck: Normal Inspection, Supple, Non-Tender, Full Range of Motion Respiratory/Chest: No Respiratory Distress, Lungs Clear, Normal Breath Sounds, No Accessory Muscle Use, Chest Non-Tender Cardiovascular: Normal Peripheral Pulses, Regular Rate, Rhythm, No Edema, No Murmur Peripheral Pulses: 2+: Radial (L), Radial (R), Posterior Tibial (L), Posterior Tibial (R), Dorsalis Pedis (L), Dorsalis Pedis (R) GI/Abdominal: Normal Bowel Sounds, Soft, Non-Tender, No Distention Extremities: Normal Inspection, Normal Range of Motion, Non-Tender, Normal Capil pearl Refill Neurological: Alert, Oriented, CN II-XII Intact, Normal Cognition, Normal Gait, No Motor/Sensory Deficits Psychiatric: Normal Affect, Normal Mood Skin Exam: Warm, Dry, Intact Course - Vital Signs Text/Narrative:: CT head unremarkable. Labs with renal insufficiency for the past 6 months. Discussed with PCP, Dr. Alamo, and patient has had slurred speech in the past. Urine drug screen and CT head were negative. Patient given 500 mL NS. Follow up appointment with Dr. Alamo 28 September 2019 @ [id number]. Dr. Alamo will send his insulin prescriptions to the pharmacy. Patient currently on an insulin drip to get his hyperglycemia resolved. Last Recorded V/S: Last Vital Signs Temp 36.6 C 09/20/19 12:00 Pulse 60 09/20/19 12:00 Resp 18 09/20/19 12:00 BP 135/66 09/20/19 12:00 Pulse Ox 98 09/20/19 12:00 - Orders/Labs/Meds Orders: Active Orders 24 hr Category Date Time Status Head wo Cont [CT] Stat Exams 09/20/19 13:51 Taken CULTURE URINE [RM] Stat Lab 09/20/19 13:15 Received Insulin Regular, Human [NovoLIN R] 100 unit Med 09/20/19 12:45 Active Sodium Chloride 0.9% [Normal Saline] 100 ml IV TITRATE Medication Orders Insulin Human Regular 100 unit (/ Sodium Chloride) 100 mls @ 12.927 mls/hr IV TITRATE ADAIR; Protocol Last Admin: 09/20/19 13:45 Dose: 0.1 units/kg/hr, 12.927 mls/hr Documented by: IRENE Cosigned by: JILLIAN Labs: Laboratory Tests 09/20/19 09/20/19 09/20/19 Range/Units 12:33 12:33 13:15 WBC 5.9 D (4.0-11.0) K/uL RBC 3.37 L (4.50-6.50) M/uL Hgb 9.6 L (13.0-18.0) g/dL Hct 30.0 L (40.0-54.0) % MCV 89 (76-96) fL MCH 28.5 (27.0-32.0) pg MCHC 32.0 (31.0-35.0) g/dL RDW 16.8 H (11.0-16.0) % Plt Count 98 L D (150-400) K/uL MPV 11.3 H (6.0-10.0) fL Neut % (Auto) 76.5 H (45.0-70.0) % Lymph % (Auto) 10.7 L (20.0-40.0) % [place] % (Auto) 7.3 (3.0-10.0) % Eos % (Auto) 4.8 (1.0-5.0) % Baso % (Auto) 0.7 H (0.0-0.5) % Neut # (Auto) 4.51 (2.00-7.50) K/uL Lymph # (Auto) 0.63 L (1.50-4.00) K/uL [place] # (Auto) 0.43 (0.20-0.80) K/uL Eos # (Auto) 0.28 (0.04-0.40) K/uL Baso # (Auto) 0.04 (0.02-0.10) K/uL Sodium 133 L (136-145) mmol/L Potassium 4.9 (3.5-5.1) mmol/L Chloride 96 L (98-107) mmol/L Carbon Dioxide 29.3 (21.0-32.0) mmol/L Anion Gap 12.6 (5.0-15.0) mmol/L BUN 83 H* D (8-26) mg/dL Creatinine 2.73 H (0.70-1.30) mg/dL Est Cr Clr Drug Dosing TNP Estimated GFR (MDRD) 23 L (>60) MLS/MIN BUN/Creatinine Ratio 30.4 H (6-25) Glucose 463 H* D (74-100) mg/dL POC Glucose (74-110) mg/dL Calcium 9.1 (8.5-10.1) mg/dL Total Bilirubin 0.7 (0.0-1.0) mg/dL AST 27 (15-37) U/L ALT 30 (12-78) U/L Alkaline Phosphatase 172 H (46-116) U/L Total Protein 7.9 (6.4-8.2) g/dL Albumin 3.4 (3.4-5.0) g/dL Globulin 4.5 H (2.2-4.2) g/dL Albumin/Globulin Ratio 0.8 (0.8-2.0) Urine Color Yellow Urine Appearance Clear (CLEAR) Urine pH 5.5 (5.0-8.0) Ur Specific [place] 1.020 (1.003-1.030) Urine Protein Negative (NEGATIVE) mg/dL Urine Glucose (UA) 100 H (NEGATIVE) mg/dL Urine Ketones Negative (NEGATIVE) mg/dL Urine Occult Blood Negative (NEGATIVE) Urine Nitrite Negative (NEGATIVE) Urine Bilirubin Negative (NEGATIVE) Urine Urobilinogen 0.2 (0.2-1.0) E.U./dL Ur Leukocyte Esterase Small H (NEGATIVE) Urine RBC Not Reportable Urine WBC 20-30 H /HPF Urine Bacteria Moderate H /HPF Urine Opiates Screen (NEGATIVE) Ur Oxycodone Screen (NEGATIVE) Urine Methadone Screen (NEGATIVE) Ur Barbiturates Screen (NEGATIVE) Ur Tricyclics Screen (NEGATIVE) Ur Phencyclidine Scrn (NEGATIVE) Ur Amphetamine Screen (NEGATIVE) U Methamphetamines Scrn (NEGATIVE) Urine MDMA Screen (NEGATIVE) U Benzodiazepines Scrn (NEGATIVE) U Cocaine Metab Screen (NEGATIVE) U Marijuana (THC) Screen (NEGATIVE) 09/20/19 09/20/19 09/20/19 Range/Units 13:27 14:16 17:44 WBC (4.0-11.0) K/uL RBC (4.50-6.50) M/uL Hgb (13.0-18.0) g/dL Hct (40.0-54.0) % MCV (76-96) fL MCH (27.0-32.0) pg MCHC (31.0-35.0) g/dL RDW (11.0-16.0) % Plt Count (150-400) K/uL MPV (6.0-10.0) fL Neut % (Auto) (45.0-70.0) % Lymph % (Auto) (20.0-40.0) % [place] % (Auto) (3.0-10.0) % Eos % (Auto) (1.0-5.0) % Baso % (Auto) (0.0-0.5) % Neut # (Auto) (2.00-7.50) K/uL Lymph # (Auto) (1.50-4.00) K/uL [place] # (Auto) (0.20-0.80) K/uL Eos # (Auto) (0.04-0.40) K/uL Baso # (Auto) (0.02-0.10) K/uL Sodium (136-145) mmol/L Potassium (3.5-5.1) mmol/L Chloride (98-107) mmol/L Carbon Dioxide (21.0-32.0) mmol/L Anion Gap (5.0-15.0) mmol/L BUN (8-26) mg/dL Creatinine (0.70-1.30) mg/dL Est Cr Clr Drug Dosing Estimated GFR (MDRD) (>60) MLS/MIN BUN/Creatinine Ratio (6-25) Glucose 381 H (74-100) mg/dL POC Glucose 389 H (74-110) mg/dL Calcium (8.5-10.1) mg/dL Total Bilirubin (0.0-1.0) mg/dL AST (15-37) U/L ALT (12-78) U/L Alkaline Phosphatase (46-116) U/L Total Protein (6.4-8.2) g/dL Albumin (3.4-5.0) g/dL Globulin (2.2-4.2) g/dL Albumin/Globulin Ratio (0.8-2.0) Urine Color Urine Appearance (CLEAR) Urine pH (5.0-8.0) Ur Specific [place] (1.003-1.030) Urine Protein (NEGATIVE) mg/dL Urine Glucose (UA) (NEGATIVE) mg/dL Urine Ketones (NEGATIVE) mg/dL Urine Occult Blood (NEGATIVE) Urine Nitrite (NEGATIVE) Urine Bilirubin (NEGATIVE) Urine Urobilinogen (0.2-1.0) E.U./dL Ur Leukocyte Esterase (NEGATIVE) Urine RBC Urine WBC /HPF Urine Bacteria /HPF Urine Opiates Screen Negative (NEGATIVE) Ur Oxycodone Screen Negative (NEGATIVE) Urine Methadone Screen Negative (NEGATIVE) Ur Barbiturates Screen Negative (NEGATIVE) Ur Tricyclics Screen Negative (NEGATIVE) Ur Phencyclidine Scrn Negative (NEGATIVE) Ur Amphetamine Screen Negative (NEGATIVE) U Methamphetamines Scrn Negative (NEGATIVE) Urine MDMA Screen Negative (NEGATIVE) U Benzodiazepines Scrn Negative (NEGATIVE) U Cocaine Metab Screen Negative (NEGATIVE) U Marijuana (THC) Screen Negative (NEGATIVE) Meds: Medications Generic Name Dose Route Start Last Admin Trade Name Freq PRN Reason Stop Dose Admin Insulin Human Regular 100 unit 100 mls @ 12.927 mls/hr 09/20/19 12:45 09/20/19 13:45 / Sodium Chloride IV 0.1 units/kg/hr TITRATE ADAIR 12.927 mls/hr Administration Protocol 0.1 UNITS/KG/HR Discontinued Medications Generic Name Dose Route Start Last Admin Trade Name Freq PRN Reason Stop Dose Admin Sodium Chloride 500 mls @ 500 mls/sec 09/20/19 13:48 09/20/19 15:00 Normal Saline IV 09/20/19 13:49 500 mls/sec .BOLUS ONE Administration Departure - Departure Time of Disposition: 18:00 Disposition: Against Medical Advice 07 Condition: Fair Clinical Impression: Hyperglycemia - Discharge Information *PRESCRIPTION DRUG MONITORING PROGRAM REVIEWED*: Not Applicable *COPY OF PRESCRIPTION DRUG MONITORING REPORT IN PATIENT JACKY: Not Applicable Referrals: PCP,None [Primary Care Provider] - Forms: ED Department Discharge Additional Instructions: Follow up appointment with Dr. Alamo 09/28/19 at 3:30. Sepsis Event Note (ED) - Focused Exam Vital Signs: Vital Signs Temp Pulse Resp BP Pulse Ox 09/20/19 12:00 36.6 C 60 18 135/66 98 - My Orders Last 24 Hours: My Active Orders 09/20/19 12:45 Insulin Regular, Human [NovoLIN R] 100 unit Sodium Chloride 0.9% [Normal Saline] 100 ml IV TITRATE 09/20/19 13:15 CULTURE URINE [RM] Stat 09/20/19 13:51 Head wo Cont [CT] Stat - Assessment/Plan Last 24 Hours: My Active Orders 09/20/19 12:45 Insulin Regular, Human [NovoLIN R] 100 unit Sodium Chloride 0.9% [Normal Saline] 100 ml IV TITRATE 09/20/19 13:15 CULTURE URINE [RM] Stat 09/20/19 13:51 Head wo Cont [CT] Stat Plan: Patient has follow up apt with Dr. Alamo next week and received his insulin. He doesn't want to stay for further treatment and decided to leave against medical advice. Risks of leaving before treatment was explained to patient and he understands.
--- NOTE | 2019-09-21 07:42 | CT ---
DATE OF SERVICE: 09/20/19 CLINICAL DATA: slurred speech UNENHANCED BRAIN CT: Comparison is made to a prior exam dated October 2018. There is diffuse cerebral atrophy. There are periventricular lucencies bilaterally consistent with small vessel ischemic change. No masses or mass effect. No intracranial hemorrhage. No evidence of acute or subacute infarct. No osseous abnormalities. IMPRESSION: No acute intracranial abnormalities. [id number] [facility]
== END 2019-09-20 18:00 | disposition left against medical advice (07) ==
LOC: LB.ED 11:59
DX: E11.65 Type 2 diabetes mellitus with hyperglycemia (principal); E78.00 Pure hypercholesterolemia, unspecified; I11.0 Hypertensive heart disease with heart failure; I50.9 Heart failure, unspecified; I25.2 Old myocardial infarction; E11.21 Type 2 diabetes mellitus with diabetic nephropathy; M10.9 Gout, unspecified; E11.40 Type 2 diabetes mellitus with diabetic neuropathy, unspecified; F31.9 Bipolar disorder, unspecified; F17.210 Nicotine dependence, cigarettes, uncomplicated; Z88.5 Allergy status to narcotic agent; Z88.6 Allergy status to analgesic agent; Z79.82 Long term (current) use of aspirin; Z79.899 Other long term (current) drug therapy; Z95.5 Presence of coronary angioplasty implant and graft; Z79.4 Long term (current) use of insulin
CPT/HCPCS: 36415; 70450; 80053; 80307; 81001; 82947; 82962; 85025; 87086; 96360; 96361; 99284; 99285-25; J7040

== ENCOUNTER 2020-02-19 21:44 | Inpatient (IN) | payer MEDICARE, OTHER ==
[2020-02-19] MEDS: Sodium Chloride 0.9% 500 ML IV ONE (23:00)
--- NOTE | 2020-02-20 02:25 | EDM.PDOC ---
ED HPI GENERAL MEDICAL PROBLEM - General Chief Complaint: General Stated Complaint: pain Time Seen by Provider: 02/19/20 22:00 Source of Information: Reports: Patient, EMS, Old Records History Limitations: Reports: Altered Mental Status, Uncooperative - History of Present Illness INITIAL COMMENTS - FREE TEXT/NARRATIVE: Patient is a 64 y/o male with PMHx of renal insufficiency and uncontrolled diabetes, who presents via EMS for multiple falls, head injuries, and pain. Patient uncooperative and not answering my questions during exam. He demands pain medicines. - Related Data Allergies Allergy/AdvReac Type Severity Reaction Status Date / Time morphine Allergy Cannot Verified 09/20/19 12:45 Remember Serotonin 5HT-3 Antagonists Allergy Cannot Verified 09/20/19 12:45 Remember fentanyl AdvReac Cannot Verified 09/20/19 12:45 Remember Home Meds: Home Meds Aspirin [Ecotrin] 325 mg PO DAILY 07/29/14 [History] Gabapentin 2 tab PO QPM 07/29/14 [History] Insulin Isophane NPH, Human [NovoLIN N] See Protocol SQ TIDMEALS 07/29/14 [History] Lisinopril 40 mg PO DAILY 07/29/14 [History] Metoprolol Tartrate [Lopressor] 50 mg PO BID 07/29/14 [History] Multivits-Min/FA/Lycopene/Lut [[facility] 1 tab PO DAILY 07/29/14 [History] amLODIPine Besylate [Amlodipine Besylate] 10 mg PO DAILY 07/29/14 [History] buPROPion [buPROPion XL] 300 tab PO DAILY 07/29/14 [History] lamoTRIgine [Lamictal] 200 mg PO DAILY 06/28/17 [History] QUEtiapine Fumarate [Quetiapine Fumarate] 200 mg PO QPM 09/15/18 [History] Sildenafil Citrate 60 mg PO DAILY PRN 09/15/18 [History] Docusate Sodium 100 mg PO DAILY PRN 09/19/18 [History] Nitroglycerin [Nitrostat] 0.4 mg PO ASDIRECTED PRN 09/19/18 [History] QUEtiapine [SEROquel] 100 mg PO DAILY 09/19/18 [History] Vitamin B6-pyridOXINE 50 mg PO DAILY 09/19/18 [History] allopurinoL [Zyloprim] 150 mg PO QPM 09/19/18 [History] allopurinoL [Zyloprim] 300 mg PO DAILY 09/19/18 [History] atorvaSTATin [Lipitor] 20 mg PO BEDTIME 09/19/18 [History] predniSONE [Prednisone] 5 mg PO DAILY 09/19/18 [History] Bumetanide 1 tab PO DAILY 03/22/19 [History] metOLazone [Metolazone] 1 tab PO DAILY 03/22/19 [History] Insulin Glargine,Hum.Rec.Anlog [Basaglar Kwikpen U-100] 20 unit SQ BEDTIME 09/20/19 [History] Leflunomide 10 mg PO DAILY 09/20/19 [History] Past Medical History HEENT History: Reports: Impaired Vision Other HEENT History: AFOGNAK Cardiovascular History: Reports: High Cholesterol, Hypertension, SC, Stents Other Cardiovascular History: stent 1993 Respiratory History: Reports: Other (See Below) Other Respiratory History: Emphysema Genitourinary History: Reports: Diabetic Nephropathy, Urinary Incontinence Other Genitourinary History: BPH, fiborus Musculoskeletal History: Reports: Arthritis, Gout, Other (See Below) Other Musculoskeletal History: finger fractures Neurological History: Reports: Neuropathy, Diabetic Psychiatric History: Reports: Bipolar, Depression, Panic Attack Endocrine/Metabolic History: Reports: Diabetes, Type II Hematologic History: Reports: None Immunologic History: Reports: None Oncologic (Cancer) History: Reports: None Dermatologic History: Reports: Other (See Below) Other Dermatologic History: Medication for SA lesions - Infectious Disease History Infectious Disease History: Reports: Chicken Pox, Measles - Past Surgical History Musculoskeletal Surgical History: Reports: None Social & Family History - Family History Family Medical History: No Pertinent Family History - Caffeine Use Caffeine Use: Reports: Coffee ED ROS GENERAL - Review of Systems Review Of Systems: Unable To Obtain Reason Not Obtained: Patient uncooperative ED EXAM, GENERAL - Physical Exam Exam: See Below (no contusions; no deformities; no obvious trauma) Exam Limited By: Other (Patient acts appropriately with staff, demands pain medication; but closes his eyes and refuses to answer questions for provider) General Appearance: Alert, No Apparent Distress Eye Exam: Bilateral Eye: PERRL Nose: Normal Inspection, Normal Mucosa, No Blood Throat/Mouth: Normal Inspection, Normal Lips, Normal Oropharynx, Normal Voice, No Airway Compromise Head: Atraumatic, Normocephalic Neck: Normal Inspection, Supple, Non-Tender Respiratory/Chest: No Respiratory Distress, Lungs Clear, Normal Breath Sounds, No Accessory Muscle Use, Chest Non-Tender Cardiovascular: Normal Peripheral Pulses, Regular Rate, Rhythm, No Murmur, Other (+2 pitting edema in bilateral lower extremities) GI/Abdominal: Normal Bowel Sounds, Soft, Non-Tender, No Distention, Other (obese) Rectal (Males) Exam: Normal Exam, Normal Rectal Tone, Heme + Stool Extremities: Normal Inspection Neurological: Alert, Other (patient moves all extremities; when demanding pain medication, he articulates well) Skin Exam: Warm, Dry, Intact, Normal Color, No Rash #1 Interpretation EKG Date: 02/20/20 Time: 01:00 Rhythm: NSR Rate (Beats/Min): 60 (1st AV block) [place]: Normal P-Wave: Present QRS: RBBB ST-T: Normal QT: Normal Comparison: No Change Course - Vital Signs Text/Narrative:: Patient making demands for pain medication and answers some questions during repeat exam. Moves all extremities. Hemo-occult (+). Severe anemia and hypotension. CT chest/abd/pelvis unremarkable. CT head/neck unremarkable. Worsening kidney function. All other labs unremarkable. 2 units of RBCs ordered and transfusing. Will transfer to [place] ([place]) with accepting physican Dr. Das. Patient going to ICU. Unable to find transport due to weather and availability. will admit patient for transfusion, while waiting for transport. e-hospitalist called for additional support. Protonix ordered. Patient NPO and no pain medications due to blood pressures. Blood pressures have approve from systolic 70s to 90s. Last Recorded V/S: Last Vital Signs Temp 36.2 C 02/20/20 01:09 Pulse 49 L 02/20/20 01:22 Resp 16 02/20/20 01:22 BP 88/39 L 02/20/20 01:22 Pulse Ox 97 02/20/20 01:21 - Orders/Labs/Meds Orders: Active Orders 24 hr Category Date Time Status Admission Diagnosis [ADT] Routine ADT 02/20/20 02:14 Ordered EKG Documentation Completion [RC] ASDIRECTED Care 02/19/20 22:27 Active Oxygen Therapy [RC] PRN Care 02/20/20 02:15 Ordered Vital Signs [RC] CONTINUOUS Care 02/20/20 02:15 Ordered Nothing per Oral Now Diet [DIET] Diet 02/20/20 Breakfast Ordered Cervical Spine wo Cont [CT] Stat Exams 02/19/20 22:48 Taken Chest Abdomen Pelvis wo Cont [CT] Stat Exams 02/19/20 23:49 Taken Head wo Cont [CT] Stat Exams 02/19/20 22:27 Taken PATIENT RETYPE [BBK] Urgent Lab 02/19/20 22:30 Results RED BLOOD CELLS LP [BBK] Urgent Lab 02/19/20 22:30 Results TYPE AND SCREEN [BBK] Urgent Lab 02/19/20 22:30 Results Transfuse RBC [Transfuse Red Blood Cells] [COMM] Stat Oth 02/19/20 23:02 Ordered Labs: Laboratory Tests 02/19/20 02/19/20 02/19/20 Range/Units 22:30 22:30 22:41 WBC 9.0 (4.0-11.0) K/uL RBC 2.12 L (4.50-6.50) M/uL Hgb 6.7 L* D (13.0-18.0) g/dL Hct 20.8 L D (40.0-54.0) % MCV 98 H (76-96) fL MCH 31.6 (27.0-32.0) pg MCHC 32.2 (31.0-35.0) g/dL RDW 15.7 (11.0-16.0) % Plt Count 131 L (150-400) K/uL MPV 11.4 H (6.0-10.0) fL Add Manual Diff Yes Neutrophils % (Manual) 83.0 H (45.0-70.0) % Lymphocytes % (Manual) 6.0 L (20.0-40.0) % Monocytes % (Manual) 6.0 (3.0-10.0) % Eosinophils % (Manual) 5.0 (1.0-5.0) % Platelet Estimate Decreased L Sodium (136-145) mmol/L Potassium (3.5-5.1) mmol/L Chloride (98-107) mmol/L Carbon Dioxide (21.0-32.0) mmol/L Anion Gap (5.0-15.0) mmol/L BUN (8-26) mg/dL Creatinine (0.70-1.30) mg/dL Est Cr Clr Drug Dosing Estimated GFR (MDRD) (>60) MLS/MIN BUN/Creatinine Ratio (6-25) Glucose (74-100) mg/dL Lactic Acid (0.4-2.0) mmol/L Calcium (8.5-10.1) mg/dL Total Bilirubin (0.0-1.0) mg/dL AST (15-37) U/L ALT (12-78) U/L Alkaline Phosphatase (46-116) U/L Ammonia (11-32) umol/L Creatine Kinase 113 (21-232) U/L Troponin I (0.000-0.060) ng/mL B-Natriuretic Peptide (0-125) pg/mL Total Protein (6.4-8.2) g/dL Albumin (3.4-5.0) g/dL Globulin (2.2-4.2) g/dL Albumin/Globulin Ratio (0.8-2.0) Urine Color Urine Appearance (CLEAR) Urine pH (5.0-8.0) Ur Specific [place] (1.003-1.030) Urine Protein (NEGATIVE) mg/dL Urine Glucose (UA) (NEGATIVE) mg/dL Urine Ketones (NEGATIVE) mg/dL Urine Occult Blood (NEGATIVE) Urine Nitrite (NEGATIVE) Urine Bilirubin (NEGATIVE) Urine Urobilinogen (0.2-1.0) E.U./dL Ur Leukocyte Esterase (NEGATIVE) U Hyaline Cast (Auto) /HPF Urine RBC /HPF Urine WBC /HPF Ur Squamous Epith Cells /HPF Ur Renal Epithelial Cell /HPF Amorphous Sediment /HPF Urine Opiates Screen (NEGATIVE) Ur Oxycodone Screen (NEGATIVE) Urine Methadone Screen (NEGATIVE) Ur Barbiturates Screen (NEGATIVE) Ur Tricyclics Screen (NEGATIVE) Ur Phencyclidine Scrn (NEGATIVE) Ur Amphetamine Screen (NEGATIVE) U Methamphetamines Scrn (NEGATIVE) Urine MDMA Screen (NEGATIVE) U Benzodiazepines Scrn (NEGATIVE) U Cocaine Metab Screen (NEGATIVE) U Marijuana (THC) Screen (NEGATIVE) Ethyl Alcohol (<3.0) mg/dL SARS-CoV-2 RNA ([place]) (NEGATIVE) Blood Type O POSITIVE Gel Antibody Screen Negative Crossmatch See Detail 02/19/20 02/19/20 02/19/20 Range/Units 22:41 22:41 22:41 WBC (4.0-11.0) K/uL RBC (4.50-6.50) M/uL Hgb (13.0-18.0) g/dL Hct (40.0-54.0) % MCV (76-96) fL MCH (27.0-32.0) pg MCHC (31.0-35.0) g/dL RDW (11.0-16.0) % Plt Count (150-400) K/uL MPV (6.0-10.0) fL Add Manual Diff Neutrophils % (Manual) (45.0-70.0) % Lymphocytes % (Manual) (20.0-40.0) % Monocytes % (Manual) (3.0-10.0) % Eosinophils % (Manual) (1.0-5.0) % Platelet Estimate Sodium 132 L (136-145) mmol/L Potassium 4.6 (3.5-5.1) mmol/L Chloride 99 (98-107) mmol/L Carbon Dioxide 21.7 D (21.0-32.0) mmol/L Anion Gap 15.9 H (5.0-15.0) mmol/L BUN 145 H* D (8-26) mg/dL Creatinine 3.28 H* D (0.70-1.30) mg/dL Est Cr Clr Drug Dosing TNP Estimated GFR (MDRD) 19 L (>60) MLS/MIN BUN/Creatinine Ratio 44.2 H (6-25) Glucose 162 H D (74-100) mg/dL Lactic Acid 2.2 H (0.4-2.0) mmol/L Calcium 8.2 L (8.5-10.1) mg/dL Total Bilirubin 0.8 (0.0-1.0) mg/dL AST 38 H (15-37) U/L ALT 29 (12-78) U/L Alkaline Phosphatase 189 H (46-116) U/L Ammonia (11-32) umol/L Creatine Kinase (21-232) U/L Troponin I 0.024 D (0.000-0.060) ng/mL B-Natriuretic Peptide 455 H D (0-125) pg/mL Total Protein 6.2 L (6.4-8.2) g/dL Albumin 2.4 L (3.4-5.0) g/dL Globulin 3.8 (2.2-4.2) g/dL Albumin/Globulin Ratio 0.6 L (0.8-2.0) Urine Color Urine Appearance (CLEAR) Urine pH (5.0-8.0) Ur Specific [place] (1.003-1.030) Urine Protein (NEGATIVE) mg/dL Urine Glucose (UA) (NEGATIVE) mg/dL Urine Ketones (NEGATIVE) mg/dL Urine Occult Blood (NEGATIVE) Urine Nitrite (NEGATIVE) Urine Bilirubin (NEGATIVE) Urine Urobilinogen (0.2-1.0) E.U./dL Ur Leukocyte Esterase (NEGATIVE) U Hyaline Cast (Auto) /HPF Urine RBC /HPF Urine WBC /HPF Ur Squamous Epith Cells /HPF Ur Renal Epithelial Cell /HPF Amorphous Sediment /HPF Urine Opiates Screen (NEGATIVE) Ur Oxycodone Screen (NEGATIVE) Urine Methadone Screen (NEGATIVE) Ur Barbiturates Screen (NEGATIVE) Ur Tricyclics Screen (NEGATIVE) Ur Phencyclidine Scrn (NEGATIVE) Ur Amphetamine Screen (NEGATIVE) U Methamphetamines Scrn (NEGATIVE) Urine MDMA Screen (NEGATIVE) U Benzodiazepines Scrn (NEGATIVE) U Cocaine Metab Screen (NEGATIVE) U Marijuana (THC) Screen (NEGATIVE) Ethyl Alcohol < 3.0 (<3.0) mg/dL SARS-CoV-2 RNA ([place]) (NEGATIVE) Blood Type Gel Antibody Screen Crossmatch 02/19/20 02/19/20 02/19/20 Range/Units 22:53 23:00 23:00 WBC (4.0-11.0) K/uL RBC (4.50-6.50) M/uL Hgb (13.0-18.0) g/dL Hct (40.0-54.0) % MCV (76-96) fL MCH (27.0-32.0) pg MCHC (31.0-35.0) g/dL RDW (11.0-16.0) % Plt Count (150-400) K/uL MPV (6.0-10.0) fL Add Manual Diff Neutrophils % (Manual) (45.0-70.0) % Lymphocytes % (Manual) (20.0-40.0) % Monocytes % (Manual) (3.0-10.0) % Eosinophils % (Manual) (1.0-5.0) % Platelet Estimate Sodium (136-145) mmol/L Potassium (3.5-5.1) mmol/L Chloride (98-107) mmol/L Carbon Dioxide (21.0-32.0) mmol/L Anion Gap (5.0-15.0) mmol/L BUN (8-26) mg/dL Creatinine (0.70-1.30) mg/dL Est Cr Clr Drug Dosing Estimated GFR (MDRD) (>60) MLS/MIN BUN/Creatinine Ratio (6-25) Glucose (74-100) mg/dL Lactic Acid (0.4-2.0) mmol/L Calcium (8.5-10.1) mg/dL Total Bilirubin (0.0-1.0) mg/dL AST (15-37) U/L ALT (12-78) U/L Alkaline Phosphatase (46-116) U/L Ammonia (11-32) umol/L Creatine Kinase (21-232) U/L Troponin I (0.000-0.060) ng/mL B-Natriuretic Peptide (0-125) pg/mL Total Protein (6.4-8.2) g/dL Albumin (3.4-5.0) g/dL Globulin (2.2-4.2) g/dL Albumin/Globulin Ratio (0.8-2.0) Urine Color Yellow Urine Appearance Slightly cloudy (CLEAR) Urine pH 5.5 (5.0-8.0) Ur Specific [place] 1.020 (1.003-1.030) Urine Protein Negative (NEGATIVE) mg/dL Urine Glucose (UA) Negative (NEGATIVE) mg/dL Urine Ketones Negative (NEGATIVE) mg/dL Urine Occult Blood Moderate H (NEGATIVE) Urine Nitrite Negative (NEGATIVE) Urine Bilirubin Negative (NEGATIVE) Urine Urobilinogen 0.2 (0.2-1.0) E.U./dL Ur Leukocyte Esterase Negative (NEGATIVE) U Hyaline Cast (Auto) Few /HPF Urine RBC 0-5 H /HPF Urine WBC Not seen /HPF Ur Squamous Epith Cells Few /HPF Ur Renal Epithelial Cell Few H /HPF Amorphous Sediment Moderate /HPF Urine Opiates Screen Negative (NEGATIVE) Ur Oxycodone Screen Negative (NEGATIVE) Urine Methadone Screen Negative (NEGATIVE) Ur Barbiturates Screen Negative (NEGATIVE) Ur Tricyclics Screen Negative (NEGATIVE) Ur Phencyclidine Scrn Negative (NEGATIVE) Ur Amphetamine Screen Negative (NEGATIVE) U Methamphetamines Scrn Negative (NEGATIVE) Urine MDMA Screen Negative (NEGATIVE) U Benzodiazepines Scrn Negative (NEGATIVE) U Cocaine Metab Screen Negative (NEGATIVE) U Marijuana (THC) Screen Negative (NEGATIVE) Ethyl Alcohol (<3.0) mg/dL SARS-CoV-2 RNA ([place]) Negative (NEGATIVE) Blood Type Gel Antibody Screen Crossmatch 02/19/20 Range/Units 23:49 WBC (4.0-11.0) K/uL RBC (4.50-6.50) M/uL Hgb (13.0-18.0) g/dL Hct (40.0-54.0) % MCV (76-96) fL MCH (27.0-32.0) pg MCHC (31.0-35.0) g/dL RDW (11.0-16.0) % Plt Count (150-400) K/uL MPV (6.0-10.0) fL Add Manual Diff Neutrophils % (Manual) (45.0-70.0) % Lymphocytes % (Manual) (20.0-40.0) % Monocytes % (Manual) (3.0-10.0) % Eosinophils % (Manual) (1.0-5.0) % Platelet Estimate Sodium (136-145) mmol/L Potassium (3.5-5.1) mmol/L Chloride (98-107) mmol/L Carbon Dioxide (21.0-32.0) mmol/L Anion Gap (5.0-15.0) mmol/L BUN (8-26) mg/dL Creatinine (0.70-1.30) mg/dL Est Cr Clr Drug Dosing Estimated GFR (MDRD) (>60) MLS/MIN BUN/Creatinine Ratio (6-25) Glucose (74-100) mg/dL Lactic Acid (0.4-2.0) mmol/L Calcium (8.5-10.1) mg/dL Total Bilirubin (0.0-1.0) mg/dL AST (15-37) U/L ALT (12-78) U/L Alkaline Phosphatase (46-116) U/L Ammonia 80 H (11-32) umol/L Creatine Kinase (21-232) U/L Troponin I (0.000-0.060) ng/mL B-Natriuretic Peptide (0-125) pg/mL Total Protein (6.4-8.2) g/dL Albumin (3.4-5.0) g/dL Globulin (2.2-4.2) g/dL Albumin/Globulin Ratio (0.8-2.0) Urine Color Urine Appearance (CLEAR) Urine pH (5.0-8.0) Ur Specific [place] (1.003-1.030) Urine Protein (NEGATIVE) mg/dL Urine Glucose (UA) (NEGATIVE) mg/dL Urine Ketones (NEGATIVE) mg/dL Urine Occult Blood (NEGATIVE) Urine Nitrite (NEGATIVE) Urine Bilirubin (NEGATIVE) Urine Urobilinogen (0.2-1.0) E.U./dL Ur Leukocyte Esterase (NEGATIVE) U Hyaline Cast (Auto) /HPF Urine RBC /HPF Urine WBC /HPF Ur Squamous Epith Cells /HPF Ur Renal Epithelial Cell /HPF Amorphous Sediment /HPF Urine Opiates Screen (NEGATIVE) Ur Oxycodone Screen (NEGATIVE) Urine Methadone Screen (NEGATIVE) Ur Barbiturates Screen (NEGATIVE) Ur Tricyclics Screen (NEGATIVE) Ur Phencyclidine Scrn (NEGATIVE) Ur Amphetamine Screen (NEGATIVE) U Methamphetamines Scrn (NEGATIVE) Urine MDMA Screen (NEGATIVE) U Benzodiazepines Scrn (NEGATIVE) U Cocaine Metab Screen (NEGATIVE) U Marijuana (THC) Screen (NEGATIVE) Ethyl Alcohol (<3.0) mg/dL SARS-CoV-2 RNA ([place]) (NEGATIVE) Blood Type Gel Antibody Screen Crossmatch Meds: Medications Discontinued Medications Generic Name Dose Route Start Last Admin Trade Name Caesarq PRN Reason Stop Dose Admin Sodium Chloride 500 mls @ 500 mls/hr 02/19/20 23:04 Normal Saline IV 02/20/20 00:03 .BOLUS ONE Sodium Chloride 500 mls @ 500 mls/hr 02/19/20 23:51 Normal Saline IV 02/20/20 00:50 .BOLUS ONE Pantoprazole Sodium 40 mg 02/20/20 02:15 Protonix Iv IV 02/20/20 02:16 ONETIME ONE Departure - Departure Time of Disposition: 03:00 Disposition: DC/Tfer to Acute Hospital 02 Condition: Serious Clinical Impression: Anemia Qualifiers: Anemia type: unspecified type Qualified Code(s): D64.9 - Anemia, unspecified Hypotension Qualifiers: Hypotension type: hypotension due to hypovolemia Qualified Code(s): I95.89 - Other hypotension; E86.1 - Hypovolemia - Discharge Information *PRESCRIPTION DRUG MONITORING PROGRAM REVIEWED*: Not Applicable *COPY OF PRESCRIPTION DRUG MONITORING REPORT IN PATIENT JACKY: Not Applicable Sepsis Event Note (ED) - Focused Exam Vital Signs: Vital Signs Temp Temp Pulse Resp BP Pulse Ox 02/20/20 01:22 49 L 16 88/39 L 02/20/20 01:21 62 16 79/37 L 97 02/20/20 01:15 74/37 L 02/20/20 01:09 36.2 C 60 16 83/37 L 02/19/20 22:00 36.7 C 56 L 13 96 - My Orders Last 24 Hours: My Active Orders 02/19/20 22:27 EKG Documentation Completion [RC] ASDIRECTED Head wo Cont [CT] Stat 02/19/20 22:30 PATIENT RETYPE [BBK] Urgent RED BLOOD CELLS LP [BBK] Urgent TYPE AND SCREEN [BBK] Urgent 02/19/20 22:48 Cervical Spine wo Cont [CT] Stat 02/19/20 23:02 Transfuse RBC [Transfuse Red Blood Cells] [COMM] Stat 02/19/20 23:49 Chest Abdomen Pelvis wo Cont [CT] Stat 02/20/20 02:14 Admission Diagnosis [ADT] Routine 02/20/20 02:15 Oxygen Therapy [RC] PRN Vital Signs [RC] CONTINUOUS 02/20/20 Breakfast Nothing per Oral Now Diet [DIET] - Assessment/Plan Last 24 Hours: My Active Orders 02/19/20 22:27 EKG Documentation Completion [RC] ASDIRECTED Head wo Cont [CT] Stat 02/19/20 22:30 PATIENT RETYPE [BBK] Urgent RED BLOOD CELLS LP [BBK] Urgent TYPE AND SCREEN [BBK] Urgent 02/19/20 22:48 Cervical Spine wo Cont [CT] Stat 02/19/20 23:02 Transfuse RBC [Transfuse Red Blood Cells] [COMM] Stat 02/19/20 23:49 Chest Abdomen Pelvis wo Cont [CT] Stat 02/20/20 02:14 Admission Diagnosis [ADT] Routine 02/20/20 02:15 Oxygen Therapy [RC] PRN Vital Signs [RC] CONTINUOUS 02/20/20 Breakfast Nothing per Oral Now Diet [DIET]
[2020-02-20] MEDS: Pantoprazole 40 MG Vial IV ONE (03:50)
[2020-02-20] MEDS: Lidocaine 5% 700 MG Patch TOP ONE (04:45)
[2020-02-20] MEDS ORDERED: Albuterol/Ipratropium 3.0-0.5 MG/3 ML Neb Soln NEB PRN (04:46)
[2020-02-20] MEDS ORDERED: Ondansetron 4 MG/2 ML SDV IV PRN (04:46)
[2020-02-20] MEDS ORDERED: Acetaminophen 325 MG Tab PO PRN (04:46)
[2020-02-20] MEDS: Sodium Chloride 0.9% 500 ML IV ONE (04:53)
[2020-02-20] MEDS: Lidocaine 5% 700 MG Patch ONE (04:53)
--- NOTE | 2020-02-20 05:43 | PCM.PN ---
- General Info Date of Service: 02/20/20 Admission Dx/Problem (Free Text): Myles Stephens Hospitalist ADMISSION SUPPORT NOTE eHospitalist was contacted by Viry Rico with request of admission support. Chief complaint: Frequent falls HPI: The patient states "my legs just convulsed tonight ".e reports frequent falls for several months with more "severe" recently to the point where he is falling and injuring himself. He reports hitting his head during one of the falls. He reports pain over his left lower chest after a fall in that area. He has had cough and shortness of breath for the past 6 months. Review of systems other than mentioned above is negative. Home Medications: Reviewed see EMR for details Pertinent Medical History: HTN, dyslipidemia, cirrhosis, DM2, psoriatic arthritis, bipolar disorder, CAD, AK, gout, peripheral neuropathy, CKD, CABG Pertinent Social History: , lives alone, smokes 1 pack/day for the past 20 years, denies drugs of abuse, quit drinking alcohol 5 years ago - Patient Data Vitals - Most Recent: Last Vital Signs Temp 35.9 C L 02/20/20 03:45 Pulse 53 L 02/20/20 04:28 Resp 14 02/20/20 04:28 BP 98/37 L 02/20/20 04:28 Pulse Ox 97 02/20/20 04:28 Weight - Most Recent: 129.274 kg I&O - Last 24 Hours: Intake & Output 02/19/20 02/19/20 02/20/20 14:59 22:59 06:59 Intake Total 1090 Balance 1090 Lab Results Last 24 Hours: Laboratory Results - last 24 hr 02/19/20 02/19/20 02/19/20 Range/Units 22:30 22:30 22:41 WBC 9.0 (4.0-11.0) K/uL RBC 2.12 L (4.50-6.50) M/uL Hgb 6.7 L* D (13.0-18.0) g/dL Hct 20.8 L D (40.0-54.0) % MCV 98 H (76-96) fL MCH 31.6 (27.0-32.0) pg MCHC 32.2 (31.0-35.0) g/dL RDW 15.7 (11.0-16.0) % Plt Count 131 L (150-400) K/uL MPV 11.4 H (6.0-10.0) fL Add Manual Diff Yes Neutrophils % (Manual) 83.0 H (45.0-70.0) % Lymphocytes % (Manual) 6.0 L (20.0-40.0) % Monocytes % (Manual) 6.0 (3.0-10.0) % Eosinophils % (Manual) 5.0 (1.0-5.0) % Platelet Estimate Decreased L Sodium (136-145) mmol/L Potassium (3.5-5.1) mmol/L Chloride (98-107) mmol/L Carbon Dioxide (21.0-32.0) mmol/L Anion Gap (5.0-15.0) mmol/L BUN (8-26) mg/dL Creatinine (0.70-1.30) mg/dL Est Cr Clr Drug Dosing Estimated GFR (MDRD) (>60) MLS/MIN BUN/Creatinine Ratio (6-25) Glucose (74-100) mg/dL Lactic Acid (0.4-2.0) mmol/L Calcium (8.5-10.1) mg/dL Total Bilirubin (0.0-1.0) mg/dL AST (15-37) U/L ALT (12-78) U/L Alkaline Phosphatase (46-116) U/L Ammonia (11-32) umol/L Creatine Kinase 113 (21-232) U/L Troponin I (0.000-0.060) ng/mL B-Natriuretic Peptide (0-125) pg/mL Total Protein (6.4-8.2) g/dL Albumin (3.4-5.0) g/dL Globulin (2.2-4.2) g/dL Albumin/Globulin Ratio (0.8-2.0) Urine Color Urine Appearance (CLEAR) Urine pH (5.0-8.0) Ur Specific [place] (1.003-1.030) Urine Protein (NEGATIVE) mg/dL Urine Glucose (UA) (NEGATIVE) mg/dL Urine Ketones (NEGATIVE) mg/dL Urine Occult Blood (NEGATIVE) Urine Nitrite (NEGATIVE) Urine Bilirubin (NEGATIVE) Urine Urobilinogen (0.2-1.0) E.U./dL Ur Leukocyte Esterase (NEGATIVE) U Hyaline Cast (Auto) /HPF Urine RBC /HPF Urine WBC /HPF Ur Squamous Epith Cells /HPF Ur Renal Epithelial Cell /HPF Amorphous Sediment /HPF Urine Opiates Screen (NEGATIVE) Ur Oxycodone Screen (NEGATIVE) Urine Methadone Screen (NEGATIVE) Ur Barbiturates Screen (NEGATIVE) Ur Tricyclics Screen (NEGATIVE) Ur Phencyclidine Scrn (NEGATIVE) Ur Amphetamine Screen (NEGATIVE) U Methamphetamines Scrn (NEGATIVE) Urine MDMA Screen (NEGATIVE) U Benzodiazepines Scrn (NEGATIVE) U Cocaine Metab Screen (NEGATIVE) U Marijuana (THC) Screen (NEGATIVE) Ethyl Alcohol (<3.0) mg/dL SARS-CoV-2 RNA (KONSTANTIN) (NEGATIVE) Blood Type O POSITIVE Gel Antibody Screen Negative Crossmatch See Detail 02/19/20 02/19/20 02/19/20 Range/Units 22:41 22:41 22:41 WBC (4.0-11.0) K/uL RBC (4.50-6.50) M/uL Hgb (13.0-18.0) g/dL Hct (40.0-54.0) % MCV (76-96) fL MCH (27.0-32.0) pg MCHC (31.0-35.0) g/dL RDW (11.0-16.0) % Plt Count (150-400) K/uL MPV (6.0-10.0) fL Add Manual Diff Neutrophils % (Manual) (45.0-70.0) % Lymphocytes % (Manual) (20.0-40.0) % Monocytes % (Manual) (3.0-10.0) % Eosinophils % (Manual) (1.0-5.0) % Platelet Estimate Sodium 132 L (136-145) mmol/L Potassium 4.6 (3.5-5.1) mmol/L Chloride 99 (98-107) mmol/L Carbon Dioxide 21.7 D (21.0-32.0) mmol/L Anion Gap 15.9 H (5.0-15.0) mmol/L BUN 145 H* D (8-26) mg/dL Creatinine 3.28 H* D (0.70-1.30) mg/dL Est Cr Clr Drug Dosing TNP Estimated GFR (MDRD) 19 L (>60) MLS/MIN BUN/Creatinine Ratio 44.2 H (6-25) Glucose 162 H D (74-100) mg/dL Lactic Acid 2.2 H (0.4-2.0) mmol/L Calcium 8.2 L (8.5-10.1) mg/dL Total Bilirubin 0.8 (0.0-1.0) mg/dL AST 38 H (15-37) U/L ALT 29 (12-78) U/L Alkaline Phosphatase 189 H (46-116) U/L Ammonia (11-32) umol/L Creatine Kinase (21-232) U/L Troponin I 0.024 D (0.000-0.060) ng/mL B-Natriuretic Peptide 455 H D (0-125) pg/mL Total Protein 6.2 L (6.4-8.2) g/dL Albumin 2.4 L (3.4-5.0) g/dL Globulin 3.8 (2.2-4.2) g/dL Albumin/Globulin Ratio 0.6 L (0.8-2.0) Urine Color Urine Appearance (CLEAR) Urine pH (5.0-8.0) Ur Specific [place] (1.003-1.030) Urine Protein (NEGATIVE) mg/dL Urine Glucose (UA) (NEGATIVE) mg/dL Urine Ketones (NEGATIVE) mg/dL Urine Occult Blood (NEGATIVE) Urine Nitrite (NEGATIVE) Urine Bilirubin (NEGATIVE) Urine Urobilinogen (0.2-1.0) E.U./dL Ur Leukocyte Esterase (NEGATIVE) U Hyaline Cast (Auto) /HPF Urine RBC /HPF Urine WBC /HPF Ur Squamous Epith Cells /HPF Ur Renal Epithelial Cell /HPF Amorphous Sediment /HPF Urine Opiates Screen (NEGATIVE) Ur Oxycodone Screen (NEGATIVE) Urine Methadone Screen (NEGATIVE) Ur Barbiturates Screen (NEGATIVE) Ur Tricyclics Screen (NEGATIVE) Ur Phencyclidine Scrn (NEGATIVE) Ur Amphetamine Screen (NEGATIVE) U Methamphetamines Scrn (NEGATIVE) Urine MDMA Screen (NEGATIVE) U Benzodiazepines Scrn (NEGATIVE) U Cocaine Metab Screen (NEGATIVE) U Marijuana (THC) Screen (NEGATIVE) Ethyl Alcohol < 3.0 (<3.0) mg/dL SARS-CoV-2 RNA (KONSTANTIN) (NEGATIVE) Blood Type Gel Antibody Screen Crossmatch 02/19/20 02/19/20 02/19/20 Range/Units 22:53 23:00 23:00 WBC (4.0-11.0) K/uL RBC (4.50-6.50) M/uL Hgb (13.0-18.0) g/dL Hct (40.0-54.0) % MCV (76-96) fL MCH (27.0-32.0) pg MCHC (31.0-35.0) g/dL RDW (11.0-16.0) % Plt Count (150-400) K/uL MPV (6.0-10.0) fL Add Manual Diff Neutrophils % (Manual) (45.0-70.0) % Lymphocytes % (Manual) (20.0-40.0) % Monocytes % (Manual) (3.0-10.0) % Eosinophils % (Manual) (1.0-5.0) % Platelet Estimate Sodium (136-145) mmol/L Potassium (3.5-5.1) mmol/L Chloride (98-107) mmol/L Carbon Dioxide (21.0-32.0) mmol/L Anion Gap (5.0-15.0) mmol/L BUN (8-26) mg/dL Creatinine (0.70-1.30) mg/dL Est Cr Clr Drug Dosing Estimated GFR (MDRD) (>60) MLS/MIN BUN/Creatinine Ratio (6-25) Glucose (74-100) mg/dL Lactic Acid (0.4-2.0) mmol/L Calcium (8.5-10.1) mg/dL Total Bilirubin (0.0-1.0) mg/dL AST (15-37) U/L ALT (12-78) U/L Alkaline Phosphatase (46-116) U/L Ammonia (11-32) umol/L Creatine Kinase (21-232) U/L Troponin I (0.000-0.060) ng/mL B-Natriuretic Peptide (0-125) pg/mL Total Protein (6.4-8.2) g/dL Albumin (3.4-5.0) g/dL Globulin (2.2-4.2) g/dL Albumin/Globulin Ratio (0.8-2.0) Urine Color Yellow Urine Appearance Slightly cloudy (CLEAR) Urine pH 5.5 (5.0-8.0) Ur Specific [place] 1.020 (1.003-1.030) Urine Protein Negative (NEGATIVE) mg/dL Urine Glucose (UA) Negative (NEGATIVE) mg/dL Urine Ketones Negative (NEGATIVE) mg/dL Urine Occult Blood Moderate H (NEGATIVE) Urine Nitrite Negative (NEGATIVE) Urine Bilirubin Negative (NEGATIVE) Urine Urobilinogen 0.2 (0.2-1.0) E.U./dL Ur Leukocyte Esterase Negative (NEGATIVE) U Hyaline Cast (Auto) Few /HPF Urine RBC 0-5 H /HPF Urine WBC Not seen /HPF Ur Squamous Epith Cells Few /HPF Ur Renal Epithelial Cell Few H /HPF Amorphous Sediment Moderate /HPF Urine Opiates Screen Negative (NEGATIVE) Ur Oxycodone Screen Negative (NEGATIVE) Urine Methadone Screen Negative (NEGATIVE) Ur Barbiturates Screen Negative (NEGATIVE) Ur Tricyclics Screen Negative (NEGATIVE) Ur Phencyclidine Scrn Negative (NEGATIVE) Ur Amphetamine Screen Negative (NEGATIVE) U Methamphetamines Scrn Negative (NEGATIVE) Urine MDMA Screen Negative (NEGATIVE) U Benzodiazepines Scrn Negative (NEGATIVE) U Cocaine Metab Screen Negative (NEGATIVE) U Marijuana (THC) Screen Negative (NEGATIVE) Ethyl Alcohol (<3.0) mg/dL SARS-CoV-2 RNA (KONSTANTIN) Negative (NEGATIVE) Blood Type Gel Antibody Screen Crossmatch 02/19/20 Range/Units 23:49 WBC (4.0-11.0) K/uL RBC (4.50-6.50) M/uL Hgb (13.0-18.0) g/dL Hct (40.0-54.0) % MCV (76-96) fL MCH (27.0-32.0) pg MCHC (31.0-35.0) g/dL RDW (11.0-16.0) % Plt Count (150-400) K/uL MPV (6.0-10.0) fL Add Manual Diff Neutrophils % (Manual) (45.0-70.0) % Lymphocytes % (Manual) (20.0-40.0) % Monocytes % (Manual) (3.0-10.0) % Eosinophils % (Manual) (1.0-5.0) % Platelet Estimate Sodium (136-145) mmol/L Potassium (3.5-5.1) mmol/L Chloride (98-107) mmol/L Carbon Dioxide (21.0-32.0) mmol/L Anion Gap (5.0-15.0) mmol/L BUN (8-26) mg/dL Creatinine (0.70-1.30) mg/dL Est Cr Clr Drug Dosing Estimated GFR (MDRD) (>60) MLS/MIN BUN/Creatinine Ratio (6-25) Glucose (74-100) mg/dL Lactic Acid (0.4-2.0) mmol/L Calcium (8.5-10.1) mg/dL Total Bilirubin (0.0-1.0) mg/dL AST (15-37) U/L ALT (12-78) U/L Alkaline Phosphatase (46-116) U/L Ammonia 80 H (11-32) umol/L Creatine Kinase (21-232) U/L Troponin I (0.000-0.060) ng/mL B-Natriuretic Peptide (0-125) pg/mL Total Protein (6.4-8.2) g/dL Albumin (3.4-5.0) g/dL Globulin (2.2-4.2) g/dL Albumin/Globulin Ratio (0.8-2.0) Urine Color Urine Appearance (CLEAR) Urine pH (5.0-8.0) Ur Specific [place] (1.003-1.030) Urine Protein (NEGATIVE) mg/dL Urine Glucose (UA) (NEGATIVE) mg/dL Urine Ketones (NEGATIVE) mg/dL Urine Occult Blood (NEGATIVE) Urine Nitrite (NEGATIVE) Urine Bilirubin (NEGATIVE) Urine Urobilinogen (0.2-1.0) E.U./dL Ur Leukocyte Esterase (NEGATIVE) U Hyaline Cast (Auto) /HPF Urine RBC /HPF Urine WBC /HPF Ur Squamous Epith Cells /HPF Ur Renal Epithelial Cell /HPF Amorphous Sediment /HPF Urine Opiates Screen (NEGATIVE) Ur Oxycodone Screen (NEGATIVE) Urine Methadone Screen (NEGATIVE) Ur Barbiturates Screen (NEGATIVE) Ur Tricyclics Screen (NEGATIVE) Ur Phencyclidine Scrn (NEGATIVE) Ur Amphetamine Screen (NEGATIVE) U Methamphetamines Scrn (NEGATIVE) Urine MDMA Screen (NEGATIVE) U Benzodiazepines Scrn (NEGATIVE) U Cocaine Metab Screen (NEGATIVE) U Marijuana (THC) Screen (NEGATIVE) Ethyl Alcohol (<3.0) mg/dL SARS-CoV-2 RNA (KONSTANTIN) (NEGATIVE) Blood Type Gel Antibody Screen Crossmatch Med Orders - Current: Current Medications Acetaminophen (Tylenol) 650 mg PO Q4H PRN PRN Reason: Pain (Mild 1-3)/fever Albuterol/Ipratropium (Duoneb 3.0-0.5 Mg/3 Ml) 3 ml NEB QID PRN PRN Reason: Shortness Of Breath/wheezing Lactated Ringer's (Ringers, Lactated) 1,000 mls @ 75 mls/hr IV ASDIRECTED ADAIR Insulin Aspart (Novolog) 0 unit SUBCUT Q6HR ADAIR; Protocol Nicotine (Habitrol) 21 mg TRDERM DAILY ADAIR Ondansetron HCl (Zofran) 4 mg IV Q4H PRN PRN Reason: Nausea/Vomiting Discontinued Medications Sodium Chloride (Normal Saline) 500 mls @ 500 mls/hr IV .BOLUS ONE Stop: 02/20/20 00:03 Last Admin: 02/19/20 23:00 Dose: 500 mls/hr Documented by: Sodium Chloride (Normal Saline) 500 mls @ 500 mls/hr IV .BOLUS ONE Stop: 02/20/20 00:50 Last Admin: 02/20/20 04:53 Dose: Not Given Documented by: Lidocaine (Lidoderm 5%) Confirm Administered Dose 700 mg .ROUTE .STK-MED ONE Stop: 02/20/20 04:45 Last Admin: 02/20/20 04:53 Dose: Not Given Documented by: Lidocaine (Lidoderm 5%) 700 mg TOP ONETIME ONE Stop: 02/20/20 04:52 Last Admin: 02/20/20 04:45 Dose: 700 mg Documented by: Pantoprazole Sodium (Protonix Iv) 40 mg IV ONETIME ONE Stop: 02/20/20 02:16 Last Admin: 02/20/20 03:50 Dose: 40 mg Documented by: - Exam Physical Findings Comments:: Myles Stephens Hospitalist ADMISSION SUPPORT NOTE e Exam (performed via interactive video with assistance of bedside nurse): General: Drowsy however responds to voice and answers questions appropriately, cooperative, no acute distress HEENT: Pupils reported ERRL, oral mucosa pink and dry without erythema Lungs: Normal effort with occasional wheeze bilaterally Chest: TTP over left lower chest wall CV: Regular rate and rhythm without loud murmur rub or gallop, distant heart sounds Ext: 1+ pitting edema right lower extremity, right lower extremity swelling patient states this is chronic Skin: Erythematous area of skin in pretibial region on both lower legs right greater than left Neuro: Drowsy, oriented x 3. CN III -VII, XI, XII grossly intact, moves all extremities without any significant focal deficit Sepsis Event Note - Evaluation Sepsis Screening Result: No Definite Risk - Focused Exam Vital Signs: Vital Signs Temp Temp Pulse Resp BP Pulse Ox 02/20/20 04:28 53 L 14 98/37 L 97 02/20/20 04:13 52 L 15 95/38 L 95 02/20/20 03:45 35.9 C L 52 L 16 79/34 L 97 02/20/20 01:22 49 L 16 88/39 L 02/20/20 01:21 62 16 79/37 L 97 02/20/20 01:15 74/37 L 02/20/20 01:09 36.2 C 60 16 83/37 L 02/20/20 00:01 61 18 75/25 L 99 02/19/20 23:59 61 14 70/23 L 99 02/19/20 23:56 63 15 81/25 L 98 02/19/20 23:51 63 14 91/41 L 97 02/19/20 23:46 63 15 61/29 L 95 02/19/20 23:40 62 15 65/22 L 95 02/19/20 23:36 64 13 92/52 L 95 02/19/20 23:31 62 13 92/45 L 95 02/19/20 23:27 63 14 79/47 L 93 L 02/19/20 23:16 62 12 85/37 L 95 02/19/20 23:14 62 10 L 82/50 L 98 02/19/20 22:56 51 L 16 77/53 L 02/19/20 22:44 65 15 81/58 L 02/19/20 22:14 36.7 C 56 L 13 96 02/19/20 22:00 36.7 C 56 L 13 96 - Problem List Review Problem List Initiated/Reviewed/Updated: Yes - My Orders Last 24 Hours: My Active Orders 02/20/20 04:46 Blood Glucose Check, Bedside [RC] Q6HR Height and Weight [RC] DAILY Oxygen Therapy [RC] PRN VTE/DVT Education [RC] Per Unit Routine Vital Signs [RC] Q4H Acetaminophen [TylenoL] 650 mg PO Q4H PRN Albuterol/Ipratropium [DuoNeb 3.0-0.5 MG/3 ML] 3 ml NEB QID PRN Ondansetron [Zofran] 4 mg IV Q4H PRN VTE Pharmacological Contraindications [AST] Per Unit Routine Resuscitation Status Routine 02/20/20 04:47 Cardiac Monitoring [RC] CONTINUOUS Intake and Output [RC] 06,18 02/20/20 04:48 Sequential Compression Device [OM.PC] Per Unit Routine 02/20/20 04:50 RT Aerosol Therapy [RC] ASDIRECTED 02/20/20 04:55 Bedrest [RC] ASDIRECTED Neuro Check [RC] Q4HR 02/20/20 04:56 Diabetes Education [RC] Click to Edit Notify Provider [RC] PRN 02/20/20 05:00 Lactated Ringers [Ringers, Lactated] 1,000 ml IV ASDIRECTED 02/20/20 06:00 Insulin Aspart [NovoLOG] See Protocol SUBCUT Q6HR 02/20/20 08:00 BASIC METABOLIC PANEL,BMP [CHEM] Routine CBC WITH AUTO DIFF [HEME] Routine Nicotine [Habitrol] 21 mg TRDERM DAILY - Assessment Assessment:: Myles Stephens Hospitalist ADMISSION SUPPORT NOTE Recent lab/Imaging: Reviewed see EMR for details EKG: Per my interpretation showed normal sinus rhythm with right bundle branch block Assessment and Plan: 1. Recurrent fall-likely secondary to syncope related to hypotension secondary to anemia. He will need PT/OT evaluation. 2. ABL anemia--transfuse 2 units PRBC. Could not disease maintain Hb greater than 8.0 3. GI bleed-possibly upper in etiology. Continue PPI twice daily. He is on daily aspirin and ibuprofen as needed. 4. MARGARITA on CKD-likely secondary to prerenal etiology from hypovolemia secondary to anemia. This should improve with IV fluids. 5. DM2-stable glucose every 6 hours while NPO and SSI 6. Psoriatic arthritis-stable on chronic prednisone and leflunomide 7. Bipolar disorder-stable. Hold Seroquel for now given sedation. Continue Wellbutrin 8. CAD-stable. Nitroglycerin as needed. Hold aspirin 9. Peripheral neuropathy-stable continue Neurontin once mental status improved [as sedating meds] 10. Dyslipidemia-stable continue Lipitor 11. Smoking habituation - nicotine patch 12. Left chest wall pain - lidoderm patch, likely musculoskeletal 13. Cirrhosis - monitor. Given GIB differential includes esophageal varices 14. DVT prophylaxis-SCDs 15. CODE STATUS full code discussed with patient Chart review was performed as well as evaluation of the patient via video. Thank you for involving ehospitalist. Please contact [phone] if further assistance is needed.
[2020-02-20] MEDS: Lactated Ringers 1,000 ML IV SCH (06:43)
[2020-02-20] MEDS: Insulin Aspart 100 Units/ML 3 ML Pen SUBCUT SCH (07:01)
[2020-02-20] MEDS: Nicotine 21 MG/24 Hr Patch TRDERM SCH (08:00)
--- NOTE | 2020-02-20 08:55 | CT ---
Date of Service: 02/19/20 Clinical Data: multiple falls; AMS UNENHANCED BRAIN CT: Multislice acquisition through the brain without IV contrast was performed. Comparison was made to a prior exam dated 09/20/19. Motion artifact degrades image quality. No masses or mass effect. No intracranial hemorrhage. No evidence of acute or subacute infarct. No fractures. IMPRESSION: No acute intracranial abnormalities. [id number] [facility]
--- NOTE | 2020-02-20 08:59 | CT ---
Date of Service: 02/19/20 Clinical Data: multiple head injuries CERVICAL SPINE CT: Multislice axial acquisition was performed. Axial images and sagittal and coronal reformations are reviewed. Comparison is made to prior exam dated 10/26/18. Motion artifact degrades image quality. The vertebral bodies are of average height and in good alignment. No acute fracture or dislocation. No focal lytic or blastic bone lesions. There is degenerative disk disease throughout the cervical spine. There is slight anterolisthesis C2 on C3 and of C3 on C4. There is mild facet joint hypertrophy at multiple levels. The thyroid is enlarged. The soft tissues are otherwise unremarkable. IMPRESSION: No acute abnormalities. [id number]
--- NOTE | 2020-02-20 09:16 | CT ---
Date of Service: 02/20/20 Clinical Data: anemia; r/o bleed UNENHANCED CHEST CT: Multislice acquisition through the chest without IV contrast was performed. Comparison was made to a prior exam dated 09/10/17. There are subtle ground-glass and nodular opacities noted in the right lung and lingular segment of the left upper lobe. Pneumonitis/pneumonia should be considered. There are atelectatic changes in the dependent portion of the both lungs. No pneumothorax. No pleural effusions. The heart size is at the upper limits of normal. There are moderate coronary artery calcifications. No pericardial effusion. No aortic aneurysm. No hilar or mediastinal adenopathy. There is mild mural thickening throughout the thoracic esophagus. Esophagitis should be considered. There is also gas within the thoracic esophagus most likely related to GE reflux. The thyroid is enlarged. There is mild degenerative disk disease throughout the thoracic spine. The patient is status post median sternotomy. No other significant findings. UNENHANCED ABDOMEN AND PELVIC CT: Multislice acquisition through the abdomen and pelvis without IV or oral contrast was performed. No prior abdomen or pelvic CT. The liver is abnormal. It is enlarged. it has lobulated contour consistent with cirrhosis. There is a 2.8 cm low-density lesion in the right lobe of the liver that is unchanged from a prior chest CT dated 09/10/17 consistent with a cyst. No other focal hepatic lesions. The gallbladder is moderately distended. No calcified gallstones. No pericholecystic fluid. There is diffuse gastric wall thickening. This is probably related to nondistention. Gastritis or an infiltrating process should at least be considered. The spleen is enlarged. It measures greater than 17 cm in length. It is homogeneous in attenuation. The pancreas appears normal. The right and left adrenals appear normal. The right and left kidneys appear normal. No nephrocalcinosis or nephrolithiasis. No hydronephrosis or hydroureter. The bladder is fluid filled. It appears normal. The prostate is mildly enlarged. No evidence of appendicitis. There is mild diverticulosis of the descending and sigmoid colon. No evidence of diverticulitis. There is free fluid adjacent to the liver and in the right and left paracolic gutters consistent with ascites. No free air. No free fluid. No dilated loops of bowel. No adenopathy. There are nonspecific periaortic nodes. No aortic aneurysm. There degenerative disk disease at multiple levels in the lower thoracic and lumbar spine. [id number] [facility]
[2020-02-20 09:22] VITALS: BP 98/41; PULSE 67
== END 2020-02-20 10:35 | DRG 812 ==
LOC: LB.ED 21:44 → LB.MS 02-20 02:48
PROVIDERS: ADMIT Physician Assistant; ATTEND Physician Assistant
PROC: 30233N1 Transfusion of Nonautologous Red Blood Cells into Peripheral Vein, Percutaneous Approach (ICD-10-PCS; principal; 2020-02-19)
DX: D64.9 Anemia, unspecified (principal); I95.89 Other hypotension; D62 Acute posthemorrhagic anemia; H91.90 Unspecified hearing loss, unspecified ear; E78.00 Pure hypercholesterolemia, unspecified; I10 Essential (primary) hypertension; N17.9 Acute kidney failure, unspecified; K92.2 Gastrointestinal hemorrhage, unspecified; E11.65 Type 2 diabetes mellitus with hyperglycemia; Z79.4 Long term (current) use of insulin; E11.40 Type 2 diabetes mellitus with diabetic neuropathy, unspecified; W18.30XA Fall on same level, unspecified, initial encounter; N28.9 Disorder of kidney and ureter, unspecified; N40.1 Benign prostatic hyperplasia with lower urinary tract symptoms; Y92.89 Other specified places as the place of occurrence of the external cause; M10.9 Gout, unspecified; E78.5 Hyperlipidemia, unspecified; Z88.6 Allergy status to analgesic agent; Z88.8 Allergy status to other drugs, medicaments and biological substances; Z79.82 Long term (current) use of aspirin; I25.2 Old myocardial infarction; Z79.52 Long term (current) use of systemic steroids; Z79.899 Other long term (current) drug therapy; Z20.828 Contact with and (suspected) exposure to other viral communicable diseases; Z95.5 Presence of coronary angioplasty implant and graft; I12.9 Hypertensive chronic kidney disease with stage 1 through stage 4 chronic kidney disease, or unspecified chronic kidney disease; E11.22 Type 2 diabetes mellitus with diabetic chronic kidney disease; N18.9 Chronic kidney disease, unspecified; H54.7 Unspecified visual loss; E11.21 Type 2 diabetes mellitus with diabetic nephropathy; J43.9 Emphysema, unspecified; R32 Unspecified urinary incontinence; N40.0 Benign prostatic hyperplasia without lower urinary tract symptoms; M19.90 Unspecified osteoarthritis, unspecified site; F32.9 Major depressive disorder, single episode, unspecified; F41.0 Panic disorder [episodic paroxysmal anxiety]; Z95.1 Presence of aortocoronary bypass graft; F17.210 Nicotine dependence, cigarettes, uncomplicated; I95.9 Hypotension, unspecified; D63.1 Anemia in chronic kidney disease; L40.50 Arthropathic psoriasis, unspecified; E11.42 Type 2 diabetes mellitus with diabetic polyneuropathy; K74.60 Unspecified cirrhosis of liver
CPT/HCPCS: 36415; 36430; 70450; 71250; 72125; 74176; 80048; 80053; 80307; 81001; 82140; 82550; 83605; 83880; 84484; 85025; 86850; 86900; 86901; 86920; 86922; 93005; 96360; 99285-25; A9270-GY; C9113; J7040; J7120; P9016; U0002

== ENCOUNTER 2020-02-23 09:08 | Inpatient (IN) | payer MEDICARE, OTHER ==
[2020-03-02] MEDS ORDERED: Tuberculin, PPD 5 Units/0.1 ML 1 ML MDV IDERM ONE (17:20)
[2020-03-02] MEDS ORDERED: Insulin Isophane NPH, Human 100 Units/ML 10 ML Vial SUBCUT SCH (18:00)
--- NOTE | 2020-03-02 18:28 | PCM.HP.2 ---
H&P History of Present Illness - General Date of Service: 03/02/20 Admit Problem/Dx: Admission Diagnosis/Problem Admission Diagnosis/Problem Weakness Source of Information: Patient, RN History Limitations: Reports: No Limitations - History of Present Illness Initial Comments - Free Text/Narative: 64 year old male presents for swing bed admission post GI bleed, anemia, encep halopathy from [facility]. He is admitted for rehab, PT/OT. On arrival patient denies pain, cp, SOB. He has had confusion off and on in the past per Dr. Alamo, on arrival patient is A x O x 3, is pleasant and answers questions appropriately. - Related Data Allergies/Adverse Reactions: Allergies Allergy/AdvReac Type Severity Reaction Status Date / Time morphine Allergy Cannot Verified 03/02/20 17:21 Remember Serotonin 5HT-3 Antagonists Allergy Cannot Verified 03/02/20 17:21 Remember fentanyl AdvReac Cannot Verified 03/02/20 17:21 Remember Home Medications: Home Meds Gabapentin 2 tab PO QPM 07/29/14 [History] Insulin Isophane NPH, Human [NovoLIN N] See Protocol SQ WITHMEALSANDBED 07/29/14 [History] Lisinopril 40 mg PO DAILY 07/29/14 [History] Metoprolol Tartrate [Lopressor] 50 mg PO BID 07/29/14 [History] Multivits-Min/FA/Lycopene/Lut [Sentry Senior] 1 tab PO DAILY 07/29/14 [History] buPROPion [buPROPion XL] 300 mg PO DAILY 07/29/14 [History] lamoTRIgine [Lamictal] 200 mg PO DAILY 06/28/17 [History] Sildenafil Citrate 60 mg PO DAILY PRN 09/15/18 [History] QUEtiapine [SEROquel] 100 mg PO DAILY 09/19/18 [History] allopurinoL [Zyloprim] 150 mg PO QPM 09/19/18 [History] allopurinoL [Zyloprim] 300 mg PO DAILY 09/19/18 [History] predniSONE [Prednisone] 5 mg PO DAILY 09/19/18 [History] Leflunomide 10 mg PO DAILY 09/20/19 [History] Ferrous Sulfate [Iron] 325 mg PO DAILY 02/20/20 [History] Calcium Carbonate/Vitamin D3 [Calcium 600-Vit D3 400 Tablet] 1 each PO DAILY 03/02/20 [History] Cholecalciferol (Vitamin D3) [Vitamin D3] 1,000 unit PO DAILY 03/02/20 [History] Insulin Detemir [Levemir] 20 unit SUBCUT BID 03/02/20 [History] Pantoprazole Sodium [Protonix] 40 mg PO BIDMEALS 03/02/20 [History] Rifaximin [Xifaxan] 550 mg PO BID 03/02/20 [History] Past Medical History HEENT History: Reports: Impaired Vision Other HEENT History: [place] Cardiovascular History: Reports: CAD, Heart Failure, High Cholesterol, Hypertension, NE, Stents Other Cardiovascular History: stent 1993 Respiratory History: Reports: Other (See Below) Other Respiratory History: Emphysema Gastrointestinal History: Reports: Cirrhosis, Other (See Below) Other Gastrointestinal History: Hepatic encephalopathy Genitourinary History: Reports: Diabetic Nephropathy, Urinary Incontinence Other Genitourinary History: BPH, fiborus Musculoskeletal History: Reports: Arthritis, Gout, RA, Other (See Below) Other Musculoskeletal History: finger fractures Neurological History: Reports: Neuropathy, Diabetic Psychiatric History: Reports: Anxiety, Bipolar, Depression, Panic Attack Endocrine/Metabolic History: Reports: Diabetes, Type II Hematologic History: Reports: Anemia Immunologic History: Reports: None Oncologic (Cancer) History: Reports: None Dermatologic History: Reports: Other (See Below) Other Dermatologic History: Medication for SA lesions - Infectious Disease History Infectious Disease History: Reports: Chicken Pox, Measles - Past Surgical History Cardiovascular Surgical History: Reports: Coronary Artery Bypass Other Cardiovascular Surgeries/Procedures: States he's had 2 surgeries on sternum since his bypass surgery to try to help sternum heal together Male Surgical History: Reports: None Musculoskeletal Surgical History: Reports: None Social & Family History - Family History Family Medical History: No Pertinent Family History - Caffeine Use Caffeine Use: Reports: Coffee H&P Review of Systems - Review of Systems: Review Of Systems: See Below General: Reports: Weakness HEENT: Reports: No Symptoms Pulmonary: Reports: No Symptoms Cardiovascular: Reports: No Symptoms Gastrointestinal: Denies: Abdominal Pain Genitourinary: Reports: No Symptoms Musculoskeletal: Reports: No Symptoms Skin: Reports: No Symptoms Psychiatric: Reports: No Symptoms, Other (has intermittent confusion at baseline) Neurological: Reports: No Symptoms Hematologic/Lymphatic: Reports: Anemia Exam - Exam Exam: See Below - Exam General: Alert, Oriented HEENT: PERRLA Neck: Trachea Midline Lungs: Clear to Auscultation, Normal Respiratory Effort Cardiovascular: Regular Rate, Regular Rhythm GI/Abdominal Exam: Normal Bowel Sounds, Soft Back Exam: Full Range of Motion Extremities: Normal Inspection, Normal Range of Motion, No Pedal Edema Skin: Warm, Dry, Intact Neuro Extensive - Mental Status: Alert, Oriented x3, Normal Mood/Affect, Memory Intact Psychiatric: Alert, Normal Affect, Normal Mood Problem List Initiated/Reviewed/Updated: Yes Orders Last 24hrs: Active Orders 24 hr Category Date Time Status Admission Status [Patient Status] [ADT] Routine ADT 03/02/20 17:30 Active Blood Glucose Check, Bedside [RC] 08,,,20 Care 03/02/20 16:08 Active Vital Signs [RC] , Care 03/02/20 16:36 Active OT Evaluation and Treatment [CONS] Routine Cons 03/02/20 16:26 Active PT Evaluation and Treatment [CONS] Routine Cons 03/02/20 16:26 Active Consistent Carbohydrate Diet [DIET] Diet 03/02/20 Dinner Ordered Calcium Carbonate/Vitamin D3 [Caltrate 600+D 1500 MG- Med 03/03/20 08:00 Active 400 Units] 1 tab PO DAILY Cholecalciferol (Vitamin D3) [Vitamin D3] Med 03/03/20 08:00 Active 2,000 unit PO DAILY Ferrous Sulfate Med 03/03/20 08:00 Active 325 mg PO DAILY Gabapentin [Neurontin] Med 03/02/20 20:00 Active 1,200 mg PO QPM Insulin Aspart [NovoLOG] Med 03/02/20 18:00 Active See Protocol SUBCUT WITHMEALSANDBED Insulin Glarg,Human.Rec.Analog [LantUS Solostar] Med 03/02/20 20:00 Active 20 units SUBCUT BID Leflunomide [Arava] Med 03/03/20 08:00 Active 10 mg PO DAILY Metoprolol Tartrate [Lopressor] Med 03/02/20 20:00 Active 50 mg PO BID Multivitamins w-Iron/Ca/FA/Min [Thera M Plus] Med 03/03/20 08:00 Active 1 tab PO DAILY Pantoprazole [ProTONIX] Med 03/02/20 20:00 Active 40 mg PO BIDAC QUEtiapine [SEROquel] Med 03/02/20 20:00 Active 100 mg PO BEDTIME Rifaximin [Xifaxan] Med 03/02/20 20:00 Active 550 mg PO BID allopurinoL [Zyloprim] Med 03/02/20 20:00 Active 150 mg PO QPM allopurinoL [Zyloprim] Med 03/03/20 08:00 Active 300 mg PO DAILY buPROPion [Wellbutrin XL] Med 03/03/20 08:00 Active 300 mg PO DAILY lamoTRIgine Med 03/03/20 08:00 Active 200 mg PO DAILY lisinopriL [Prinivil] Med 03/03/20 08:00 Active 40 mg PO DAILY predniSONE Med 03/03/20 08:00 Active 5 mg PO DAILY Resuscitation Status Routine Resus Stat 03/02/20 16:27 Ordered Medication Orders Allopurinol (Zyloprim) 150 mg PO QPM [facility] Allopurinol (Zyloprim) 300 mg PO DAILY [facility] Bupropion HCl (Wellbutrin Xl) 300 mg PO DAILY [facility] Calcium Carbonate (Caltrate 600+D 1500 Mg-400 Units) 1 tab PO DAILY [facility] Cholecalciferol (Vitamin D3) 2,000 unit PO DAILY [facility] Ferrous Sulfate (Ferrous Sulfate) 325 mg PO DAILY [facility] Gabapentin (Neurontin) 1,200 mg PO QPM [facility] Insulin Aspart (Novolog) 0 unit SUBCUT WITHMEALSANDBED ADAIR; Protocol Insulin Glargine (Lantus Solostar) 20 units SUBCUT BID [facility] Lamotrigine (Lamotrigine) 200 mg PO DAILY [facility] Leflunomide (Arava) 10 mg PO DAILY [facility] Lisinopril (Prinivil) 40 mg PO DAILY [facility] Metoprolol Tartrate (Lopressor) 50 mg PO BID [facility] Multivitamins/Minerals (Thera M Plus) 1 tab PO DAILY [facility] Pantoprazole Sodium (Protonix) 40 mg PO BIDAC [facility] Prednisone (Prednisone) 5 mg PO DAILY [facility] Quetiapine Fumarate (Seroquel) 100 mg PO BEDTIME [facility] Rifaximin (Xifaxan) 550 mg PO BID [facility]
[2020-03-02] MEDS: Insulin Aspart 100 Units/ML 3 ML Pen SUBCUT SCH (18:56)
[2020-03-02] MEDS ORDERED: FLU Vacc QV2020-21(65YR UP)/PF 240 MCG/0.7 ML Syringe IM ONE (19:00)
[2020-03-02] MEDS: Pantoprazole 40 MG Tab.CR PO SCH (20:12)
[2020-03-02] MEDS: Gabapentin 600 MG Tab PO SCH (20:12)
[2020-03-02] MEDS: Metoprolol Tartrate 50 MG Tab PO SCH (20:13)
[2020-03-02] MEDS: Rifaximin 550 MG Tab PO SCH (20:13)
[2020-03-02] MEDS: Allopurinol 300 MG Tab PO SCH (20:15)
[2020-03-02] MEDS: Insulin Glargine,Human Rec. Analog 100 Units/ML 3 ML Pen SUBCUT SCH (20:16)
[2020-03-03] MEDS: Rifaximin 550 MG Tab PO SCH ×2 (07:54→20:22)
[2020-03-03] MEDS: Ferrous Sulfate 325 MG Tab PO SCH (07:54)
[2020-03-03] MEDS: predniSONE 5 MG Tab PO SCH (07:54)
[2020-03-03] MEDS: Calcium Carbonate/Vitamin D3 1500 MG-400 Units Tab PO SCH (07:54)
[2020-03-03] MEDS: Metoprolol Tartrate 50 MG Tab PO SCH (07:54)
[2020-03-03] MEDS: Pantoprazole 40 MG Tab.CR PO SCH ×2 (07:54→20:20)
[2020-03-03] MEDS: Multivitamins with Iron/Calcium/Folic Acid/Minerals Tab PO SCH (07:54)
[2020-03-03] MEDS: buPROPion 300 MG Tab.ER PO SCH (07:55)
[2020-03-03] MEDS: Cholecalciferol (Vitamin D3) 2,000 Unit Cap PO SCH (07:55)
[2020-03-03] MEDS: Leflunomide 20 MG Tab PO SCH (07:56)
[2020-03-03] MEDS: Insulin Aspart 100 Units/ML 3 ML Pen SUBCUT SCH ×4 (08:00→18:00)
[2020-03-03] MEDS: lamoTRIgine 25 MG Tab PO SCH (08:01)
[2020-03-03] MEDS: Allopurinol 300 MG Tab PO SCH ×2 (08:02→20:22)
[2020-03-03] MEDS: Insulin Glargine,Human Rec. Analog 100 Units/ML 3 ML Pen SUBCUT SCH ×2 (08:10→20:22)
[2020-03-03] MEDS: Gabapentin 600 MG Tab PO SCH (20:21)
[2020-03-04] MEDS: Metoprolol Tartrate 50 MG Tab PO SCH ×3 (05:40→19:42)
[2020-03-04] MEDS: Insulin Aspart 100 Units/ML 3 ML Pen SUBCUT SCH ×5 (05:41→19:49)
[2020-03-04] MEDS: Cholecalciferol (Vitamin D3) 2,000 Unit Cap PO SCH (07:31)
[2020-03-04] MEDS: Pantoprazole 40 MG Tab.CR PO SCH ×2 (07:31→19:42)
[2020-03-04] MEDS: Ferrous Sulfate 325 MG Tab PO SCH (07:31)
[2020-03-04] MEDS: buPROPion 300 MG Tab.ER PO SCH (07:32)
[2020-03-04] MEDS: predniSONE 5 MG Tab PO SCH (07:32)
[2020-03-04] MEDS: Multivitamins with Iron/Calcium/Folic Acid/Minerals Tab PO SCH (07:32)
[2020-03-04] MEDS: Calcium Carbonate/Vitamin D3 1500 MG-400 Units Tab PO SCH (07:32)
[2020-03-04] MEDS: Rifaximin 550 MG Tab PO SCH ×2 (07:32→19:43)
[2020-03-04] MEDS: Leflunomide 20 MG Tab PO SCH (07:37)
[2020-03-04] MEDS: lamoTRIgine 25 MG Tab PO SCH (07:37)
[2020-03-04] MEDS: Allopurinol 300 MG Tab PO SCH ×2 (07:38→19:44)
[2020-03-04] MEDS: Insulin Glargine,Human Rec. Analog 100 Units/ML 3 ML Pen SUBCUT SCH ×2 (08:22→19:44)
[2020-03-04] MEDS: Gabapentin 600 MG Tab PO SCH (19:43)
[2020-03-04] MEDS ORDERED: Calcium Carbonate 500 MG Tab.Chew ONE (21:59)
[2020-03-04] MEDS ORDERED: Calcium Carbonate 500 MG Tab.Chew PO PRN (22:32)
[2020-03-04] MEDS ORDERED: GI Cocktail Oral Solution 30 ML PO ONE (22:33)
[2020-03-05] MEDS: Pantoprazole 40 MG Tab.CR PO SCH ×2 (08:24→20:14)
[2020-03-05] MEDS: predniSONE 5 MG Tab PO SCH (08:24)
[2020-03-05] MEDS: Calcium Carbonate/Vitamin D3 1500 MG-400 Units Tab PO SCH (08:25)
[2020-03-05] MEDS: Cholecalciferol (Vitamin D3) 2,000 Unit Cap PO SCH (08:25)
[2020-03-05] MEDS: Rifaximin 550 MG Tab PO SCH ×2 (08:25→20:14)
[2020-03-05] MEDS: Metoprolol Tartrate 50 MG Tab PO SCH (08:25)
[2020-03-05] MEDS: Multivitamins with Iron/Calcium/Folic Acid/Minerals Tab PO SCH (08:25)
[2020-03-05] MEDS: buPROPion 300 MG Tab.ER PO SCH (08:25)
[2020-03-05] MEDS: Leflunomide 20 MG Tab PO SCH (08:27)
[2020-03-05] MEDS: lamoTRIgine 25 MG Tab PO SCH (08:28)
[2020-03-05] MEDS: Ferrous Sulfate 325 MG Tab PO SCH (08:29)
[2020-03-05] MEDS: Allopurinol 300 MG Tab PO SCH ×2 (08:29→20:17)
[2020-03-05] MEDS: Insulin Glargine,Human Rec. Analog 100 Units/ML 3 ML Pen SUBCUT SCH ×2 (08:30→20:18)
[2020-03-05] MEDS: Insulin Aspart 100 Units/ML 3 ML Pen SUBCUT SCH ×4 (08:32→20:21)
--- NOTE | 2020-03-05 11:43 | PCM.PN ---
- General Info Date of Service: 03/05/20 Subjective Update: Patient notes significant improvement in memory and cognition. He does feel weak but improved greatly. He denies any concerns at this time. - Review of Systems General: Reports: Weakness, Fatigue HEENT: Reports: No Symptoms Pulmonary: Reports: No Symptoms Cardiovascular: Reports: No Symptoms Gastrointestinal: Reports: No Symptoms Genitourinary: Reports: No Symptoms Musculoskeletal: Reports: No Symptoms - Patient Data Vitals - Most Recent: Last Vital Signs Temp 36.8 C 03/05/20 08:22 Pulse 60 03/05/20 08:25 Resp 18 03/05/20 08:22 BP 104/60 03/05/20 08:25 Pulse Ox 98 03/05/20 08:22 Weight - Most Recent: 76.657 kg Lab Results Last 24 Hours: Laboratory Results - last 24 hr 03/04/20 03/04/20 03/04/20 Range/Units 10:58 15:37 18:39 WBC (4.0-11.0) K/uL RBC (4.50-6.50) M/uL Hgb (13.0-18.0) g/dL Hct (40.0-54.0) % MCV (76-96) fL MCH (27.0-32.0) pg MCHC (31.0-35.0) g/dL RDW (11.0-16.0) % Plt Count (150-400) K/uL MPV (6.0-10.0) fL Neut % (Auto) (45.0-70.0) % Lymph % (Auto) (20.0-40.0) % [place] % (Auto) (3.0-10.0) % Eos % (Auto) (1.0-5.0) % Baso % (Auto) (0.0-0.5) % Neut # (Auto) (2.00-7.50) K/uL Lymph # (Auto) (1.50-4.00) K/uL [place] # (Auto) (0.20-0.80) K/uL Eos # (Auto) (0.04-0.40) K/uL Baso # (Auto) (0.02-0.10) K/uL Sodium (136-145) mmol/L Potassium (3.5-5.1) mmol/L Chloride (98-107) mmol/L Carbon Dioxide (21.0-32.0) mmol/L Anion Gap (5.0-15.0) mmol/L BUN (8-26) mg/dL Creatinine (0.70-1.30) mg/dL Est Cr Clr Drug Dosing mL/min Estimated GFR (MDRD) (>60) MLS/MIN BUN/Creatinine Ratio (6-25) Glucose (74-100) mg/dL POC Glucose 194 H 230 H 246 H (74-110) mg/dL Calcium (8.5-10.1) mg/dL Ammonia (11-32) umol/L 03/05/20 03/05/20 03/05/20 Range/Units 09:00 09:00 09:00 WBC 7.0 (4.0-11.0) K/uL RBC 3.00 L (4.50-6.50) M/uL Hgb 8.9 L (13.0-18.0) g/dL Hct 28.8 L (40.0-54.0) % MCV 96 (76-96) fL MCH 29.7 (27.0-32.0) pg MCHC 30.9 L (31.0-35.0) g/dL RDW 16.5 H (11.0-16.0) % Plt Count 104 L (150-400) K/uL MPV 12.4 H (6.0-10.0) fL Neut % (Auto) 77.8 H (45.0-70.0) % Lymph % (Auto) 8.3 L (20.0-40.0) % [place] % (Auto) 8.4 (3.0-10.0) % Eos % (Auto) 4.8 (1.0-5.0) % Baso % (Auto) 0.7 H (0.0-0.5) % Neut # (Auto) 5.46 (2.00-7.50) K/uL Lymph # (Auto) 0.58 L (1.50-4.00) K/uL [place] # (Auto) 0.59 (0.20-0.80) K/uL Eos # (Auto) 0.34 (0.04-0.40) K/uL Baso # (Auto) 0.05 (0.02-0.10) K/uL Sodium 137 (136-145) mmol/L Potassium 4.2 (3.5-5.1) mmol/L Chloride 100 (98-107) mmol/L Carbon Dioxide 26.9 D (21.0-32.0) mmol/L Anion Gap 14.3 (5.0-15.0) mmol/L BUN 35 H D (8-26) mg/dL Creatinine 1.49 H D (0.70-1.30) mg/dL Est Cr Clr Drug Dosing 52.88 mL/min Estimated GFR (MDRD) 47 L (>60) MLS/MIN BUN/Creatinine Ratio 23.5 (6-25) Glucose 221 H D (74-100) mg/dL POC Glucose (74-110) mg/dL Calcium 7.8 L (8.5-10.1) mg/dL Ammonia 29 (11-32) umol/L [place] Results Last 24 Hours: Microbiology 03/02/20 18:31 MRSA Surveillance Culture - Final Nares, Unspecified NO MRSA ISOLATED Med Orders - Current: Current Medications Allopurinol (Zyloprim) 150 mg PO QPM [facility] Last Admin: 03/04/20 19:44 Dose: 150 mg Documented by: Allopurinol (Zyloprim) 300 mg PO DAILY [facility] Last Admin: 03/05/20 08:29 Dose: 300 mg Documented by: Bupropion HCl (Wellbutrin Xl) 300 mg PO DAILY [facility] Last Admin: 03/05/20 08:25 Dose: 300 mg Documented by: Calcium Carbonate (Caltrate 600+D 1500 Mg-400 Units) 1 tab PO DAILY [facility] Last Admin: 03/05/20 08:25 Dose: 1 tab Documented by: Calcium Carbonate/Glycine (Tums) 1,000 mg PO TID PRN PRN Reason: Abdominal Pain Cholecalciferol (Vitamin D3) 2,000 unit PO DAILY [facility] Last Admin: 03/05/20 08:25 Dose: 2,000 unit Documented by: Ferrous Sulfate (Ferrous Sulfate) 325 mg PO DAILY [facility] Last Admin: 03/05/20 08:29 Dose: 325 mg Documented by: Gabapentin (Neurontin) 1,200 mg PO QPM [facility] Last Admin: 03/04/20 19:43 Dose: 1,200 mg Documented by: Insulin Aspart (Novolog) 0 unit SUBCUT WITHMEALSANDBED [facility]; Protocol Last Admin: 03/05/20 08:32 Dose: Not Given Documented by: Insulin Glargine (Lantus Solostar) 20 units SUBCUT BID [facility] Last Admin: 03/05/20 08:30 Dose: 20 units Documented by: Lamotrigine (Lamotrigine) 200 mg PO DAILY [facility] Last Admin: 03/05/20 08:28 Dose: 200 mg Documented by: Leflunomide (Arava) 10 mg PO DAILY [facility] Last Admin: 03/05/20 08:27 Dose: 10 mg Documented by: Lisinopril (Prinivil) 40 mg PO DAILY [facility] Last Admin: 03/05/20 08:25 Dose: 40 mg Documented by: Metoprolol Tartrate (Lopressor) 50 mg PO BID [facility] Last Admin: 03/05/20 08:25 Dose: 50 mg Documented by: Multivitamins/Minerals (Thera M Plus) 1 tab PO DAILY [facility] Last Admin: 03/05/20 08:25 Dose: 1 tab Documented by: [facility] Admin: 03/05/20 08:24 Dose: 40 mg Documented by: Prednisone (Prednisone) 5 mg PO DAILY [facility] Last Admin: 03/05/20 08:24 Dose: 5 mg Documented by: Quetiapine Fumarate (Seroquel) 100 mg PO BEDTIME [facility] Last Admin: 03/04/20 19:50 Dose: 100 mg Documented by: Rifaximin (Xifaxan) 550 mg PO BID [facility] Last Admin: 03/05/20 08:25 Dose: 550 mg Documented by: Discontinued Medications Al Hydroxide/Mg Hydroxide (Gi Cocktail) 30 ml PO ONETIME ONE Stop: 03/04/20 22:34 Last Admin: 03/04/20 22:40 Dose: 30 ml Documented by: Calcium Carbonate/Glycine (Tums) Confirm Administered Dose 1,000 mg .ROUTE .STK- MED ONE Stop: 03/04/20 22:00 Last Admin: 03/05/20 02:42 Dose: Not Given Documented by: Influenza Virus Vaccine (Pharmacy To Dose - Influenza Vaccine) 1 each IM ONETIME ONE Stop: 03/06/20 09:01 Influenza Virus Vaccine (Fluzone High-Dose Quad 2020-21) 240 mcg IM .ONCE ONE Stop: 03/02/20 19:01 Last Admin: 03/02/20 23:10 Dose: Not Given Documented by: Tuberculin PPD (Aplisol) 5 unit IDERM ONETIME ONE Stop: 03/02/20 17:21 - Exam General: Alert, Oriented, Cooperative HEENT: Pupils Equal, Pupils Reactive, EOMI Neck: Supple Lungs: Clear to Auscultation, Normal Respiratory Effort Cardiovascular: Regular Rate, Regular Rhythm Back Exam: Normal Inspection Extremities: Normal Inspection Sepsis Event Note - Evaluation Sepsis Screening Result: No Definite Risk - Focused Exam Vital Signs: Vital Signs Temp Pulse Pulse Resp BP BP Pulse Ox 03/05/20 08:25 60 104/60 03/05/20 08:22 36.8 C 60 18 100/60 98 - Problem List & Annotations (1) ARF (acute renal failure) SNOMED Code(s): 49954552 Code(s): N17.9 - ACUTE KIDNEY FAILURE, UNSPECIFIED Status: Acute Priority: High Current Visit: No Qualifiers: Acute renal failure type: unspecified Qualified Code(s): N17.9 - Acute kidney failure, unspecified (2) Anemia SNOMED Code(s): 231783239 Code(s): D64.9 - ANEMIA, UNSPECIFIED Status: Acute Current Visit: No Qualifiers: Anemia type: unspecified type Qualified Code(s): D64.9 - Anemia, unspecified (3) CHF exacerbation SNOMED Code(s): 902288774, 70341254078451 Code(s): I50.9 - HEART FAILURE, UNSPECIFIED Status: Acute Priority: High Current Visit: No Qualifiers: Heart failure type: unspecified Qualified Code(s): I50.9 - Heart failure, unspecified (4) Delirium SNOMED Code(s): 3309051 Code(s): R41.0 - DISORIENTATION, UNSPECIFIED Status: Acute Current Visit: No - Problem List Review Problem List Initiated/Reviewed/Updated: Yes - Plan Plan:: Patient will continue PT/OT at this time. We will continued to f/u CBC and symptoms of anemia.
[2020-03-05] MEDS: Gabapentin 600 MG Tab PO SCH (20:13)
[2020-03-06] MEDS: Pantoprazole 40 MG Tab.CR PO SCH (07:52)
[2020-03-06] MEDS: Multivitamins with Iron/Calcium/Folic Acid/Minerals Tab PO SCH (07:52)
[2020-03-06] MEDS: predniSONE 5 MG Tab PO SCH (07:52)
[2020-03-06] MEDS: Calcium Carbonate/Vitamin D3 1500 MG-400 Units Tab PO SCH (07:53)
[2020-03-06] MEDS: Rifaximin 550 MG Tab PO SCH (07:53)
[2020-03-06] MEDS: Cholecalciferol (Vitamin D3) 2,000 Unit Cap PO SCH (07:53)
[2020-03-06] MEDS: Ferrous Sulfate 325 MG Tab PO SCH (07:53)
[2020-03-06] MEDS: buPROPion 300 MG Tab.ER PO SCH (07:54)
[2020-03-06] MEDS: Allopurinol 300 MG Tab PO SCH (07:55)
[2020-03-06] MEDS: lamoTRIgine 25 MG Tab PO SCH (07:58)
[2020-03-06] MEDS: Metoprolol Tartrate 50 MG Tab PO SCH (07:59)
[2020-03-06 08:04] VITALS: BP 131/66; PULSE 55
[2020-03-06] MEDS: Insulin Aspart 100 Units/ML 3 ML Pen SUBCUT SCH ×2 (08:10→12:28)
[2020-03-06] MEDS: Insulin Glargine,Human Rec. Analog 100 Units/ML 3 ML Pen SUBCUT SCH (08:15)
[2020-03-06] MEDS: Leflunomide 20 MG Tab PO SCH (08:15)
--- NOTE | 2020-03-06 13:11 | PCM.DCSUM1 ---
Discharge Summary - Discharge Data Discharge Date: 03/06/20 Discharge Disposition: Home, Self-Care 01 Condition: Good - Referral to Home Health Primary Care Physician: PCP None - Patient Summary/Data Consults: Consultations 03/02/20 16:26 OT Evaluation and Treatment [CONS] Routine Please Evaluate and Treat. OT Reason for Consult: ADL's This query below is only for informational purposes and is not editable. PT Evaluation and Treatment [CONS] Routine Please Evaluate and Treat. PT Reason for Consult: Strengthening This query below is only for informational purposes and is not editable. - Patient Instructions Diet: Usual Diet as Tolerated Activity: As Tolerated Driving: Do Not Drive - Discharge Plan Prescriptions/Med Rec: Rifaximin [Xifaxan] 550 mg PO BID #120 tab Home Medications: Home Meds Gabapentin 2 tab PO QPM 07/29/14 [History] Insulin Isophane NPH, Human [NovoLIN N] See Protocol SQ WITHMEALSANDBED 07/29/14 [History] Lisinopril 40 mg PO DAILY 07/29/14 [History] Metoprolol Tartrate [Lopressor] 50 mg PO BID 07/29/14 [History] Multivits-Min/FA/Lycopene/Lut [Sentry Senior] 1 tab PO DAILY 07/29/14 [History] buPROPion [buPROPion XL] 300 mg PO DAILY 07/29/14 [History] lamoTRIgine [Lamictal] 200 mg PO DAILY 06/28/17 [History] Sildenafil Citrate 60 mg PO DAILY PRN 09/15/18 [History] QUEtiapine [SEROquel] 100 mg PO DAILY 09/19/18 [History] allopurinoL [Zyloprim] 150 mg PO QPM 09/19/18 [History] allopurinoL [Zyloprim] 300 mg PO DAILY 09/19/18 [History] predniSONE [Prednisone] 5 mg PO DAILY 09/19/18 [History] Leflunomide 10 mg PO DAILY 09/20/19 [History] Ferrous Sulfate [Iron] 325 mg PO DAILY 02/20/20 [History] Calcium Carbonate/Vitamin D3 [Calcium 600-Vit D3 400 Tablet] 1 each PO DAILY 03/02/20 [History] Cholecalciferol (Vitamin D3) [Vitamin D3] 1,000 unit PO DAILY 03/02/20 [History] Insulin Detemir [Levemir] 20 unit SUBCUT BID 03/02/20 [History] Pantoprazole Sodium [Protonix] 40 mg PO BIDMEALS 03/02/20 [History] Calcium Carbonate [Tums] 1,000 mg PO TID PRN tab.chew 03/06/20 [Rx] Cholecalciferol (Vitamin D3) [Vitamin D3] 2,000 unit PO DAILY cap 03/06/20 [Rx] Insulin Aspart [NovoLOG] 0 unit SUBCUT WITHMEALSANDBED pen 03/06/20 [Rx] Leflunomide [Arava] 10 mg PO DAILY tablet 03/06/20 [Rx] QUEtiapine [SEROquel] 100 mg PO BEDTIME tablet 03/06/20 [Rx] Rifaximin [Xifaxan] 550 mg PO BID #120 tab 03/06/20 [Rx] lamoTRIgine 200 mg PO DAILY tablet 03/06/20 [Rx] Patient Handouts: Rifaximin tablets - Discharge Summary/Plan Comment DC Time >30 min.: No - Patient Data Vitals - Most Recent: Last Vital Signs Temp 36.4 C 03/06/20 08:00 Pulse 55 L 03/06/20 08:00 Resp 18 03/06/20 08:00 BP 131/66 03/06/20 08:00 Pulse Ox 100 03/06/20 08:00 Weight - Most Recent: 122.289 kg Lab Results - Last 24 hrs: Laboratory Results - last 24 hr 03/05/20 03/05/20 03/06/20 Range/Units 16:00 19:09 06:57 POC Glucose 173 H 256 H 123 H (74-110) mg/dL Med Orders - Current: Current Medications Allopurinol (Zyloprim) 150 mg PO QPM [facility] Last Admin: 03/05/20 20:17 Dose: 150 mg Documented by: Allopurinol (Zyloprim) 300 mg PO DAILY [facility] Last Admin: 03/06/20 07:55 Dose: 300 mg Documented by: Bupropion HCl (Wellbutrin Xl) 300 mg PO DAILY [facility] Last Admin: 03/06/20 07:54 Dose: 300 mg Documented by: Calcium Carbonate (Caltrate 600+D 1500 Mg-400 Units) 1 tab PO DAILY [facility] Last Admin: 03/06/20 07:53 Dose: 1 tab Documented by: Calcium Carbonate/Glycine (Tums) 1,000 mg PO TID PRN PRN Reason: Abdominal Pain Cholecalciferol (Vitamin D3) 2,000 unit PO DAILY [facility] Last Admin: 03/06/20 07:53 Dose: 2,000 unit Documented by: Ferrous Sulfate (Ferrous Sulfate) 325 mg PO DAILY [facility] Last Admin: 03/06/20 07:53 Dose: 325 mg Documented by: Gabapentin (Neurontin) 1,200 mg PO QPM [facility] Last Admin: 03/05/20 20:13 Dose: 1,200 mg Documented by: Insulin Aspart (Novolog) 0 unit SUBCUT WITHMEALSANDBED [facility]; Protocol Last Admin: 03/06/20 12:28 Dose: 2 units Documented by: Insulin Glargine (Lantus Solostar) 20 units SUBCUT BID [facility] Last Admin: 03/06/20 08:15 Dose: 20 units Documented by: Lamotrigine (Lamotrigine) 200 mg PO DAILY [facility] Last Admin: 03/06/20 07:58 Dose: 200 mg Documented by: Leflunomide (Arava) 10 mg PO DAILY [facility] Last Admin: 03/06/20 08:15 Dose: 10 mg Documented by: Lisinopril (Prinivil) 40 mg PO DAILY [facility] Last Admin: 03/06/20 07:56 Dose: 40 mg Documented by: Metoprolol Tartrate (Lopressor) 50 mg PO BID [facility] Last Admin: 03/06/20 07:59 Dose: Not Given Documented by: Multivitamins/Minerals (Thera M Plus) 1 tab PO DAILY [facility] Last Admin: 03/06/20 07:52 Dose: 1 tab Documented by: Pantoprazole Sodium (Protonix) 40 mg PO BIDAC [facility] Last Admin: 03/06/20 07:52 Dose: 40 mg Documented by: Prednisone (Prednisone) 5 mg PO DAILY [facility] Last Admin: 03/06/20 07:52 Dose: 5 mg Documented by: Quetiapine Fumarate (Seroquel) 100 mg PO BEDTIME [facility] Last Admin: 03/05/20 20:14 Dose: 100 mg Documented by: Rifaximin (Xifaxan) 550 mg PO BID [facility] Last Admin: 03/06/20 07:53 Dose: 550 mg Documented by: Discontinued Medications Al Hydroxide/Mg Hydroxide (Gi Cocktail) 30 ml PO ONETIME ONE Stop: 03/04/20 22:34 Last Admin: 03/04/20 22:40 Dose: 30 ml Documented by: Calcium Carbonate/Glycine (Tums) Confirm Administered Dose 1,000 mg .ROUTE .STK- MED ONE Stop: 03/04/20 22:00 Last Admin: 03/05/20 02:42 Dose: Not Given Documented by: Influenza Virus Vaccine (Pharmacy To Dose - Influenza Vaccine) 1 each IM O NETIME ONE Stop: 03/06/20 09:01 Influenza Virus Vaccine (Fluzone High-Dose Quad ) 240 mcg IM .ONCE ONE Stop: 03/02/20 19:01 Last Admin: 03/02/20 23:10 Dose: Not Given Documented by: Tuberculin PPD (Aplisol) 5 unit IDERM ONETIME ONE Stop: 03/02/20 17:21
== END 2020-03-06 14:50 | disposition home or self-care (01) | DRG 948 ==
LOC: LB.MS 03-02 16:37
PROVIDERS: ADMIT Nurse Practitioner; ATTEND Nurse Practitioner
DX: R53.1 Weakness (principal); N17.9 Acute kidney failure, unspecified; H54.7 Unspecified visual loss; I25.10 Atherosclerotic heart disease of native coronary artery without angina pectoris; H91.90 Unspecified hearing loss, unspecified ear; E78.00 Pure hypercholesterolemia, unspecified; K74.60 Unspecified cirrhosis of liver; E11.21 Type 2 diabetes mellitus with diabetic nephropathy; R32 Unspecified urinary incontinence; N40.0 Benign prostatic hyperplasia without lower urinary tract symptoms; M19.90 Unspecified osteoarthritis, unspecified site; M10.9 Gout, unspecified; I11.0 Hypertensive heart disease with heart failure; I50.9 Heart failure, unspecified; M06.9 Rheumatoid arthritis, unspecified; E11.42 Type 2 diabetes mellitus with diabetic polyneuropathy; F31.9 Bipolar disorder, unspecified; F41.1 Generalized anxiety disorder; D64.9 Anemia, unspecified; Z95.1 Presence of aortocoronary bypass graft; Z88.5 Allergy status to narcotic agent; Z88.8 Allergy status to other drugs, medicaments and biological substances; Z79.4 Long term (current) use of insulin; Z79.899 Other long term (current) drug therapy; Z79.52 Long term (current) use of systemic steroids; I25.2 Old myocardial infarction; Z95.5 Presence of coronary angioplasty implant and graft; Z98.890 Other specified postprocedural states
CPT/HCPCS: 36415; 80048; 82140; 82962; 85025; 90653; 97161-GP; 97165-GO; 97530-GP; 97535-GO; A9270-GY; J1815-GY; J7512

== ENCOUNTER 2020-04-13 13:07 | Inpatient (IN) | payer MEDICARE, OTHER ==
[2020-04-13] MEDS ORDERED: Sodium Chloride 0.9% 500 ML IV ONE (14:04)
--- NOTE | 2020-04-13 15:02 | EDM.PDOC ---
ED HPI GENERAL MEDICAL PROBLEM - General Chief Complaint: General Stated Complaint: fall Time Seen by Provider: 04/13/20 15:10 Source of Information: Reports: Patient, EMS History Limitations: Reports: No Limitations, Altered Mental Status - History of Present Illness INITIAL COMMENTS - FREE TEXT/NARRATIVE: 64 year old male known diabetes ,HTN * CAbG ,was brought to ED by EMS with h/o fall & found him on the floor of living room He was not able get up. The patient lives alone & poor historian -The patient c/o pain on back of head ,located on occipital area , dull ache 3/10, non radiating . The patient c/o pain in left shoulder ,dull ache .3/10.The patient also reports lower back pain . denies fever,N/V chest pain ,cough ,shortness of breath ,dizziness Onset: Today, Sudden Onset Date: 04/13/20 Onset Time: 01:10 Duration: Day(s): (1) Location: Reports: Head (small swelling noted on back of head ) Quality: Reports: Dull Severity: Moderate Improves with: Reports: None Worsens with: Reports: Movement Associated Symptoms: Reports: Weakness - Related Data Allergies Allergy/AdvReac Type Severity Reaction Status Date / Time morphine Allergy Cannot Verified 03/02/20 17:21 Remember Serotonin 5HT-3 Antagonists Allergy Cannot Verified 03/02/20 17:21 Remember fentanyl AdvReac Cannot Verified 03/02/20 17:21 Remember Home Meds: Home Meds Gabapentin 2 tab PO QPM 07/29/14 [History] Insulin Isophane NPH, Human [NovoLIN N] See Protocol SQ WITHMEALSANDBED 07/29/14 [History] Lisinopril 40 mg PO DAILY 07/29/14 [History] Metoprolol Tartrate [Lopressor] 50 mg PO BID 07/29/14 [History] Multivits-Min/FA/Lycopene/Lut [Sentry Senior] 1 tab PO DAILY 07/29/14 [History] buPROPion [buPROPion XL] 300 mg PO DAILY 07/29/14 [History] lamoTRIgine [Lamictal] 200 mg PO DAILY 06/28/17 [History] Sildenafil Citrate 60 mg PO DAILY PRN 09/15/18 [History] QUEtiapine [SEROquel] 100 mg PO DAILY 09/19/18 [History] allopurinoL [Zyloprim] 150 mg PO QPM 09/19/18 [History] allopurinoL [Zyloprim] 300 mg PO DAILY 09/19/18 [History] predniSONE [Prednisone] 5 mg PO DAILY 09/19/18 [History] Leflunomide 10 mg PO DAILY 09/20/19 [History] Ferrous Sulfate [Iron] 325 mg PO DAILY 02/20/20 [History] Calcium Carbonate/Vitamin D3 [Calcium 600-Vit D3 400 Tablet] 1 each PO DAILY 03/02/20 [History] Cholecalciferol (Vitamin D3) [Vitamin D3] 1,000 unit PO DAILY 03/02/20 [History] Insulin Detemir [Levemir] 20 unit SUBCUT BID 03/02/20 [History] Pantoprazole Sodium [Protonix] 40 mg PO BIDMEALS 03/02/20 [History] Calcium Carbonate [Tums] 1,000 mg PO TID PRN tab.chew 03/06/20 [Rx] Cholecalciferol (Vitamin D3) [Vitamin D3] 2,000 unit PO DAILY cap 03/06/20 [Rx] Insulin Aspart [NovoLOG] 0 unit SUBCUT WITHMEALSANDBED pen 03/06/20 [Rx] Leflunomide [Arava] 10 mg PO DAILY tablet 03/06/20 [Rx] QUEtiapine [SEROquel] 100 mg PO BEDTIME tablet 03/06/20 [Rx] Rifaximin [Xifaxan] 550 mg PO BID #120 tab 03/06/20 [Rx] lamoTRIgine 200 mg PO DAILY tablet 03/06/20 [Rx] Past Medical History HEENT History: Reports: Impaired Vision Other HEENT History: [facility] Cardiovascular History: Reports: CAD, Heart Failure, High Cholesterol, Hypertension, DC, Stents Other Cardiovascular History: stent 1993 Respiratory History: Reports: Other (See Below) Other Respiratory History: Emphysema Gastrointestinal History: Reports: Cirrhosis, Other (See Below) Other Gastrointestinal History: Hepatic encephalopathy Genitourinary History: Reports: Diabetic Nephropathy, Renal Disease, Urinary Incontinence Other Genitourinary History: BPH, fiborus Musculoskeletal History: Reports: Arthritis, Gout, RA, Other (See Below) Other Musculoskeletal History: finger fractures Neurological History: Reports: Neuropathy, Diabetic Psychiatric History: Reports: Anxiety, Bipolar, Depression, Panic Attack Endocrine/Metabolic History: Reports: Diabetes, Type II Hematologic History: Reports: Anemia Immunologic History: Reports: None Oncologic (Cancer) History: Reports: None Dermatologic History: Reports: Other (See Below) Other Dermatologic History: Medication for SA lesions - Infectious Disease History Infectious Disease History: Reports: Chicken Pox, Measles - Past Surgical History Cardiovascular Surgical History: Reports: Coronary Artery Bypass Other Cardiovascular Surgeries/Procedures: States he's had 2 surgeries on sternum since his bypass surgery to try to help sternum heal together Male Surgical History: Reports: None Musculoskeletal Surgical History: Reports: None Social & Family History - Family History Family Medical History: No Pertinent Family History - Tobacco Use Tobacco Use Status *Q: Former Tobacco User Used Tobacco, but Quit: Yes Month/Year Tobacco Last Used: years - Caffeine Use Caffeine Use: Reports: Coffee ED ROS GENERAL - Review of Systems Review Of Systems: See Below Constitutional: Reports: Weakness, Fatigue HEENT: Reports: No Symptoms Respiratory: Reports: No Symptoms Cardiovascular: Reports: No Symptoms Endocrine: Reports: Fatigue, High Glucose GI/Abdominal: Reports: No Symptoms Musculoskeletal: Reports: Shoulder Pain (left shoulder ) Skin: Reports: No Symptoms Neurological: Reports: No Symptoms ED EXAM, GENERAL - Physical Exam Exam: See Below Exam Limited By: No Limitations General Appearance: Alert, No Apparent Distress Head: Other (swelling noted on occipital area ) GI/Abdominal: Normal Bowel Sounds Back Exam: Normal Inspection, Vertebral Tenderness, Other (mild tenderness on lower back ) Neurological: Oriented Skin Exam: Warm Course - Vital Signs Text/Narrative:: Vitals monitored Labs ordered CT shows no acute intracranial finding X ray left shoulder normal x ray chest looks normal EKG shows sinus rhythm with 1st degree block As patient looks dehydrated ,normal saline bolus started . patient was admitted for observation. consult with E hospitalist for acute kidney injury Last Recorded V/S: Last Vital Signs Temp 98.0 F 04/13/20 15:39 Pulse 69 04/13/20 15:39 Resp 16 04/13/20 15:39 BP 121/61 04/13/20 15:39 Pulse Ox 100 04/13/20 15:39 - Orders/Labs/Meds Orders: Active Orders 24 hr Category Date Time Status EKG Documentation Completion [RC] ASDIRECTED Care 04/13/20 13:42 Active Chest 1V Frontal [CR] Stat Exams 04/13/20 15:00 Taken Head wo Cont [CT] Stat Exams 04/13/20 13:52 Taken Shoulder 1V Lt [CR] Stat Exams 04/13/20 15:00 Taken UA RFX ROSE MARIE AND CULT IF INDIC [URIN] Stat Lab 04/13/20 14:00 Ordered EKG 12 Lead [EK] Routine Ther 04/13/20 13:41 Ordered Labs: Laboratory Tests 04/13/20 04/13/20 04/13/20 Range/Units 13:41 13:45 13:50 WBC 10.8 D (4.0-11.0) K/uL RBC 3.40 L (4.50-6.50) M/uL Hgb 9.6 L (13.0-18.0) g/dL Hct 30.9 L (40.0-54.0) % MCV 91 (76-96) fL MCH 28.2 (27.0-32.0) pg MCHC 31.1 (31.0-35.0) g/dL RDW 20.7 H (11.0-16.0) % Plt Count 174 D (150-400) K/uL MPV 10.5 H (6.0-10.0) fL Neut % (Auto) 75.9 H (45.0-70.0) % Lymph % (Auto) 11.2 L (20.0-40.0) % [place] % (Auto) 9.3 (3.0-10.0) % Eos % (Auto) 2.7 (1.0-5.0) % Baso % (Auto) 0.9 H (0.0-0.5) % Neut # (Auto) 8.19 H (2.00-7.50) K/uL Lymph # (Auto) 1.21 L (1.50-4.00) K/uL [place] # (Auto) 1.00 H (0.20-0.80) K/uL Eos # (Auto) 0.29 (0.04-0.40) K/uL Baso # (Auto) 0.10 (0.02-0.10) K/uL D-Dimer, Quantitative (0-400) ng/mL Sodium 134 L (136-145) mmol/L Potassium 3.6 (3.5-5.1) mmol/L Chloride 99 (98-107) mmol/L Carbon Dioxide 31.2 (21.0-32.0) mmol/L Anion Gap 7.4 (5.0-15.0) mmol/L BUN 67 H* D (8-26) mg/dL Creatinine 2.38 H D (0.70-1.30) mg/dL Est Cr Clr Drug Dosing TNP Estimated GFR (MDRD) 27 L (>60) MLS/MIN BUN/Creatinine Ratio 28.2 H (6-25) Glucose 198 H (74-100) mg/dL Calcium 9.2 (8.5-10.1) mg/dL Magnesium (1.8-2.4) mg/dL Total Bilirubin 2.7 H D (0.0-1.0) mg/dL AST 47 H (15-37) U/L ALT 33 (12-78) U/L Alkaline Phosphatase 234 H (46-116) U/L Ammonia (11-32) umol/L Total Protein 8.0 (6.4-8.2) g/dL Albumin 3.1 L (3.4-5.0) g/dL Globulin 4.9 H (2.2-4.2) g/dL Albumin/Globulin Ratio 0.6 L (0.8-2.0) SARS-CoV-2 RNA (KONSTANTIN) Negative (NEGATIVE) 04/13/20 04/13/20 04/13/20 Range/Units 13:54 13:56 14:11 WBC (4.0-11.0) K/uL RBC (4.50-6.50) M/uL Hgb (13.0-18.0) g/dL Hct (40.0-54.0) % MCV (76-96) fL MCH (27.0-32.0) pg MCHC (31.0-35.0) g/dL RDW (11.0-16.0) % Plt Count (150-400) K/uL MPV (6.0-10.0) fL Neut % (Auto) (45.0-70.0) % Lymph % (Auto) (20.0-40.0) % [place] % (Auto) (3.0-10.0) % Eos % (Auto) (1.0-5.0) % Baso % (Auto) (0.0-0.5) % Neut # (Auto) (2.00-7.50) K/uL Lymph # (Auto) (1.50-4.00) K/uL [place] # (Auto) (0.20-0.80) K/uL Eos # (Auto) (0.04-0.40) K/uL Baso # (Auto) (0.02-0.10) K/uL D-Dimer, Quantitative 2480 H (0-400) ng/mL Sodium (136-145) mmol/L Potassium (3.5-5.1) mmol/L Chloride (98-107) mmol/L Carbon Dioxide (21.0-32.0) mmol/L Anion Gap (5.0-15.0) mmol/L BUN (8-26) mg/dL Creatinine (0.70-1.30) mg/dL Est Cr Clr Drug Dosing Estimated GFR (MDRD) (>60) MLS/MIN BUN/Creatinine Ratio (6-25) Glucose (74-100) mg/dL Calcium (8.5-10.1) mg/dL Magnesium 2.0 (1.8-2.4) mg/dL Total Bilirubin (0.0-1.0) mg/dL AST (15-37) U/L ALT (12-78) U/L Alkaline Phosphatase (46-116) U/L Ammonia 45 H (11-32) umol/L Total Protein (6.4-8.2) g/dL Albumin (3.4-5.0) g/dL Globulin (2.2-4.2) g/dL Albumin/Globulin Ratio (0.8-2.0) SARS-CoV-2 RNA (KONSTANTIN) (NEGATIVE) Meds: Medications Discontinued Medications Generic Name Dose Route Start Last Admin Trade Name Freq PRN Reason Stop Dose Admin Sodium Chloride 500 mls @ 999 mls/hr 04/13/20 14:04 04/13/20 14:25 Normal Saline IV 04/13/20 14:34 999 mls/hr .BOLUS ONE Administration Departure - Departure Time of Disposition: 16:00 Disposition: Admitted As Inpatient 64 Condition: Good Clinical Impression: ARF (acute renal failure) - Discharge Information *PRESCRIPTION DRUG MONITORING PROGRAM REVIEWED*: Not Applicable *COPY OF PRESCRIPTION DRUG MONITORING REPORT IN PATIENT JACKY: Not Applicable Sepsis Event Note (ED) - Evaluation Sepsis Screening Result: No Definite Risk - Focused Exam Vital Signs: Vital Signs Temp Pulse Resp BP 04/13/20 14:33 97.9 F 74 20 139/63 - Problem List & Annotations (1) Acute kidney injury SNOMED Code(s): 62658743, 93052847 Code(s): N17.9 - ACUTE KIDNEY FAILURE, UNSPECIFIED Status: Acute Priority: Medium Current Visit: Yes Onset Date: ~04/13/20 - My Orders Last 24 Hours: My Active Orders 04/13/20 13:41 EKG 12 Lead [EK] Routine 04/13/20 13:42 EKG Documentation Completion [RC] ASDIRECTED 04/13/20 13:52 Head wo Cont [CT] Stat 04/13/20 14:00 UA RFX ROSE MARIE AND CULT IF INDIC [URIN] Stat 04/13/20 15:00 Chest 1V Frontal [CR] Stat Shoulder 1V Lt [CR] Stat - Assessment/Plan Last 24 Hours: My Active Orders 04/13/20 13:41 EKG 12 Lead [EK] Routine 04/13/20 13:42 EKG Documentation Completion [RC] ASDIRECTED 04/13/20 13:52 Head wo Cont [CT] Stat 04/13/20 14:00 UA RFX ROSE MARIE AND CULT IF INDIC [URIN] Stat 04/13/20 15:00 Chest 1V Frontal [CR] Stat Shoulder 1V Lt [CR] Stat Plan: hydrate the patient monitor the kidney function consult with E hospitalist Consult with health and social care teacher
--- NOTE | 2020-04-13 16:21 | CT ---
DATE OF SERVICE: 04/13/2020 CLINICAL DATA: Fall. UNENHANCED BRAIN CT: Comparison is made to a prior exam dated 19 February 2020. No masses or mass effect. No intracranial hemorrhage. No evidence of acute or subacute infarct. No bony abnormalities. No acute intracranial abnormalities. [id number] [facility]
[2020-04-13] MEDS ORDERED: Ondansetron 4 MG/2 ML SDV IV PRN (17:35)
[2020-04-13] MEDS ORDERED: oxyCODONE 5 MG Tab PO PRN (17:35)
[2020-04-13] MEDS ORDERED: Acetaminophen 325 MG Tab PO PRN (17:35)
--- NOTE | 2020-04-13 17:40 | PCM.PN ---
- General Info Date of Service: 04/13/20 - Patient Data Vitals - Most Recent: Last Vital Signs Temp 36.7 C 04/13/20 15:39 Pulse 69 04/13/20 15:39 Resp 16 04/13/20 15:39 BP 121/61 04/13/20 15:39 Pulse Ox 100 04/13/20 15:39 Weight - Most Recent: 118.115 kg Lab Results Last 24 Hours: Laboratory Results - last 24 hr 04/13/20 04/13/20 04/13/20 Range/Units 13:41 13:45 13:45 WBC 10.8 D (4.0-11.0) K/uL RBC 3.40 L (4.50-6.50) M/uL Hgb 9.6 L (13.0-18.0) g/dL Hct 30.9 L (40.0-54.0) % MCV 91 (76-96) fL MCH 28.2 (27.0-32.0) pg MCHC 31.1 (31.0-35.0) g/dL RDW 20.7 H (11.0-16.0) % Plt Count 174 D (150-400) K/uL MPV 10.5 H (6.0-10.0) fL Neut % (Auto) 75.9 H (45.0-70.0) % Lymph % (Auto) 11.2 L (20.0-40.0) % [place] % (Auto) 9.3 (3.0-10.0) % Eos % (Auto) 2.7 (1.0-5.0) % Baso % (Auto) 0.9 H (0.0-0.5) % Neut # (Auto) 8.19 H (2.00-7.50) K/uL Lymph # (Auto) 1.21 L (1.50-4.00) K/uL [place] # (Auto) 1.00 H (0.20-0.80) K/uL Eos # (Auto) 0.29 (0.04-0.40) K/uL Baso # (Auto) 0.10 (0.02-0.10) K/uL D-Dimer, Quantitative (0-400) ng/mL Sodium 134 L (136-145) mmol/L Potassium 3.6 (3.5-5.1) mmol/L Chloride 99 (98-107) mmol/L Carbon Dioxide 31.2 (21.0-32.0) mmol/L Anion Gap 7.4 (5.0-15.0) mmol/L BUN 67 H* D (8-26) mg/dL Creatinine 2.38 H D (0.70-1.30) mg/dL Est Cr Clr Drug Dosing TNP Estimated GFR (MDRD) 27 L (>60) MLS/MIN BUN/Creatinine Ratio 28.2 H (6-25) Glucose 198 H (74-100) mg/dL POC Glucose (74-110) mg/dL Calcium 9.2 (8.5-10.1) mg/dL Magnesium (1.8-2.4) mg/dL Total Bilirubin 2.7 H D (0.0-1.0) mg/dL AST 47 H (15-37) U/L ALT 33 (12-78) U/L Alkaline Phosphatase 234 H (46-116) U/L Ammonia (11-32) umol/L Troponin I (0.000-0.060) ng/mL Total Protein 8.0 (6.4-8.2) g/dL Albumin 3.1 L (3.4-5.0) g/dL Globulin 4.9 H (2.2-4.2) g/dL Albumin/Globulin Ratio 0.6 L (0.8-2.0) Urine Color Urine Appearance (CLEAR) Urine pH (5.0-8.0) Ur Specific [place] (1.003-1.030) Urine Protein (NEGATIVE) mg/dL Urine Glucose (UA) (NEGATIVE) mg/dL Urine Ketones (NEGATIVE) mg/dL Urine Occult Blood (NEGATIVE) Urine Nitrite (NEGATIVE) Urine Bilirubin (NEGATIVE) Urine Urobilinogen (0.2-1.0) E.U./dL Ur Leukocyte Esterase (NEGATIVE) Urine RBC /HPF Urine WBC /HPF Ur Squamous Epith Cells /HPF Urine Bacteria /HPF Urine Opiates Screen (NEGATIVE) Ur Oxycodone Screen (NEGATIVE) Urine Methadone Screen (NEGATIVE) Ur Barbiturates Screen (NEGATIVE) Ur Tricyclics Screen (NEGATIVE) Ur Phencyclidine Scrn (NEGATIVE) Ur Amphetamine Screen (NEGATIVE) U Methamphetamines Scrn (NEGATIVE) Urine MDMA Screen (NEGATIVE) U Benzodiazepines Scrn (NEGATIVE) U Cocaine Metab Screen (NEGATIVE) U Marijuana (THC) Screen (NEGATIVE) Ethyl Alcohol < 3.0 (<3.0) mg/dL SARS-CoV-2 RNA ([place]) (NEGATIVE) 04/13/20 04/13/20 04/13/20 Range/Units 13:45 13:50 13:54 WBC (4.0-11.0) K/uL RBC (4.50-6.50) M/uL Hgb (13.0-18.0) g/dL Hct (40.0-54.0) % MCV (76-96) fL MCH (27.0-32.0) pg MCHC (31.0-35.0) g/dL RDW (11.0-16.0) % Plt Count (150-400) K/uL MPV (6.0-10.0) fL Neut % (Auto) (45.0-70.0) % Lymph % (Auto) (20.0-40.0) % [place] % (Auto) (3.0-10.0) % Eos % (Auto) (1.0-5.0) % Baso % (Auto) (0.0-0.5) % Neut # (Auto) (2.00-7.50) K/uL Lymph # (Auto) (1.50-4.00) K/uL [place] # (Auto) (0.20-0.80) K/uL Eos # (Auto) (0.04-0.40) K/uL Baso # (Auto) (0.02-0.10) K/uL D-Dimer, Quantitative 2480 H (0-400) ng/mL Sodium (136-145) mmol/L Potassium (3.5-5.1) mmol/L Chloride (98-107) mmol/L Carbon Dioxide (21.0-32.0) mmol/L Anion Gap (5.0-15.0) mmol/L BUN (8-26) mg/dL Creatinine (0.70-1.30) mg/dL Est Cr Clr Drug Dosing Estimated GFR (MDRD) (>60) MLS/MIN BUN/Creatinine Ratio (6-25) Glucose (74-100) mg/dL POC Glucose (74-110) mg/dL Calcium (8.5-10.1) mg/dL Magnesium (1.8-2.4) mg/dL Total Bilirubin (0.0-1.0) mg/dL AST (15-37) U/L ALT (12-78) U/L Alkaline Phosphatase (46-116) U/L Ammonia (11-32) umol/L Troponin I 0.031 D (0.000-0.060) ng/mL Total Protein (6.4-8.2) g/dL Albumin (3.4-5.0) g/dL Globulin (2.2-4.2) g/dL Albumin/Globulin Ratio (0.8-2.0) Urine Color Urine Appearance (CLEAR) Urine pH (5.0-8.0) Ur Specific [place] (1.003-1.030) Urine Protein (NEGATIVE) mg/dL Urine Glucose (UA) (NEGATIVE) mg/dL Urine Ketones (NEGATIVE) mg/dL Urine Occult Blood (NEGATIVE) Urine Nitrite (NEGATIVE) Urine Bilirubin (NEGATIVE) Urine Urobilinogen (0.2-1.0) E.U./dL Ur Leukocyte Esterase (NEGATIVE) Urine RBC /HPF Urine WBC /HPF Ur Squamous Epith Cells /HPF Urine Bacteria /HPF Urine Opiates Screen (NEGATIVE) Ur Oxycodone Screen (NEGATIVE) Urine Methadone Screen (NEGATIVE) Ur Barbiturates Screen (NEGATIVE) Ur Tricyclics Screen (NEGATIVE) Ur Phencyclidine Scrn (NEGATIVE) Ur Amphetamine Screen (NEGATIVE) U Methamphetamines Scrn (NEGATIVE) Urine MDMA Screen (NEGATIVE) U Benzodiazepines Scrn (NEGATIVE) U Cocaine Metab Screen (NEGATIVE) U Marijuana (THC) Screen (NEGATIVE) Ethyl Alcohol (<3.0) mg/dL SARS-CoV-2 RNA ([place]) Negative (NEGATIVE) 04/13/20 04/13/20 04/13/20 Range/Units 13:56 14:11 16:35 WBC (4.0-11.0) K/uL RBC (4.50-6.50) M/uL Hgb (13.0-18.0) g/dL Hct (40.0-54.0) % MCV (76-96) fL MCH (27.0-32.0) pg MCHC (31.0-35.0) g/dL RDW (11.0-16.0) % Plt Count (150-400) K/uL MPV (6.0-10.0) fL Neut % (Auto) (45.0-70.0) % Lymph % (Auto) (20.0-40.0) % [place] % (Auto) (3.0-10.0) % Eos % (Auto) (1.0-5.0) % Baso % (Auto) (0.0-0.5) % Neut # (Auto) (2.00-7.50) K/uL Lymph # (Auto) (1.50-4.00) K/uL [place] # (Auto) (0.20-0.80) K/uL Eos # (Auto) (0.04-0.40) K/uL Baso # (Auto) (0.02-0.10) K/uL D-Dimer, Quantitative (0-400) ng/mL Sodium (136-145) mmol/L Potassium (3.5-5.1) mmol/L Chloride (98-107) mmol/L Carbon Dioxide (21.0-32.0) mmol/L Anion Gap (5.0-15.0) mmol/L BUN (8-26) mg/dL Creatinine (0.70-1.30) mg/dL Est Cr Clr Drug Dosing Estimated GFR (MDRD) (>60) MLS/MIN BUN/Creatinine Ratio (6-25) Glucose (74-100) mg/dL POC Glucose 174 H (74-110) mg/dL Calcium (8.5-10.1) mg/dL Magnesium 2.0 (1.8-2.4) mg/dL Total Bilirubin (0.0-1.0) mg/dL AST (15-37) U/L ALT (12-78) U/L Alkaline Phosphatase (46-116) U/L Ammonia 45 H (11-32) umol/L Troponin I (0.000-0.060) ng/mL Total Protein (6.4-8.2) g/dL Albumin (3.4-5.0) g/dL Globulin (2.2-4.2) g/dL Albumin/Globulin Ratio (0.8-2.0) Urine Color Urine Appearance (CLEAR) Urine pH (5.0-8.0) Ur Specific [place] (1.003-1.030) Urine Protein (NEGATIVE) mg/dL Urine Glucose (UA) (NEGATIVE) mg/dL Urine Ketones (NEGATIVE) mg/dL Urine Occult Blood (NEGATIVE) Urine Nitrite (NEGATIVE) Urine Bilirubin (NEGATIVE) Urine Urobilinogen (0.2-1.0) E.U./dL Ur Leukocyte Esterase (NEGATIVE) Urine RBC /HPF Urine WBC /HPF Ur Squamous Epith Cells /HPF Urine Bacteria /HPF Urine Opiates Screen (NEGATIVE) Ur Oxycodone Screen (NEGATIVE) Urine Methadone Screen (NEGATIVE) Ur Barbiturates Screen (NEGATIVE) Ur Tricyclics Screen (NEGATIVE) Ur Phencyclidine Scrn (NEGATIVE) Ur Amphetamine Screen (NEGATIVE) U Methamphetamines Scrn (NEGATIVE) Urine MDMA Screen (NEGATIVE) U Benzodiazepines Scrn (NEGATIVE) U Cocaine Metab Screen (NEGATIVE) U Marijuana (THC) Screen (NEGATIVE) Ethyl Alcohol (<3.0) mg/dL SARS-CoV-2 RNA ([place]) (NEGATIVE) 04/13/20 04/13/20 Range/Units 16:42 16:43 WBC (4.0-11.0) K/uL RBC (4.50-6.50) M/uL Hgb (13.0-18.0) g/dL Hct (40.0-54.0) % MCV (76-96) fL MCH (27.0-32.0) pg MCHC (31.0-35.0) g/dL RDW (11.0-16.0) % Plt Count (150-400) K/uL MPV (6.0-10.0) fL Neut % (Auto) (45.0-70.0) % Lymph % (Auto) (20.0-40.0) % [place] % (Auto) (3.0-10.0) % Eos % (Auto) (1.0-5.0) % Baso % (Auto) (0.0-0.5) % Neut # (Auto) (2.00-7.50) K/uL Lymph # (Auto) (1.50-4.00) K/uL [place] # (Auto) (0.20-0.80) K/uL Eos # (Auto) (0.04-0.40) K/uL Baso # (Auto) (0.02-0.10) K/uL D-Dimer, Quantitative (0-400) ng/mL Sodium (136-145) mmol/L Potassium (3.5-5.1) mmol/L Chloride (98-107) mmol/L Carbon Dioxide (21.0-32.0) mmol/L Anion Gap (5.0-15.0) mmol/L BUN (8-26) mg/dL Creatinine (0.70-1.30) mg/dL Est Cr Clr Drug Dosing Estimated GFR (MDRD) (>60) MLS/MIN BUN/Creatinine Ratio (6-25) Glucose (74-100) mg/dL POC Glucose (74-110) mg/dL Calcium (8.5-10.1) mg/dL Magnesium (1.8-2.4) mg/dL Total Bilirubin (0.0-1.0) mg/dL AST (15-37) U/L ALT (12-78) U/L Alkaline Phosphatase (46-116) U/L Ammonia (11-32) umol/L Troponin I (0.000-0.060) ng/mL Total Protein (6.4-8.2) g/dL Albumin (3.4-5.0) g/dL Globulin (2.2-4.2) g/dL Albumin/Globulin Ratio (0.8-2.0) Urine Color Yellow Urine Appearance Slightly cloudy (CLEAR) Urine pH 7.0 (5.0-8.0) Ur Specific [place] 1.020 (1.003-1.030) Urine Protein Trace H (NEGATIVE) mg/dL Urine Glucose (UA) Negative (NEGATIVE) mg/dL Urine Ketones Negative (NEGATIVE) mg/dL Urine Occult Blood Negative (NEGATIVE) Urine Nitrite Positive H (NEGATIVE) Urine Bilirubin Negative (NEGATIVE) Urine Urobilinogen 1.0 (0.2-1.0) E.U./dL Ur Leukocyte Esterase Trace H (NEGATIVE) Urine RBC Not seen /HPF Urine WBC 5-10 H /HPF Ur Squamous Epith Cells Few /HPF Urine Bacteria Many H /HPF Urine Opiates Screen Negative (NEGATIVE) Ur Oxycodone Screen Negative (NEGATIVE) Urine Methadone Screen Negative (NEGATIVE) Ur Barbiturates Screen Negative (NEGATIVE) Ur Tricyclics Screen Negative (NEGATIVE) Ur Phencyclidine Scrn Negative (NEGATIVE) Ur Amphetamine Screen Negative (NEGATIVE) U Methamphetamines Scrn Negative (NEGATIVE) Urine MDMA Screen Negative (NEGATIVE) U Benzodiazepines Scrn Negative (NEGATIVE) U Cocaine Metab Screen Negative (NEGATIVE) U Marijuana (THC) Screen Negative (NEGATIVE) Ethyl Alcohol (<3.0) mg/dL SARS-CoV-2 RNA ([place]) (NEGATIVE) Med Orders - Current: Current Medications Acetaminophen (Tylenol) 650 mg PO Q4H PRN PRN Reason: Pain (Mild 1-3)/fever Heparin Sodium (Porcine) (Heparin Sodium) 5,000 units SUBCUT Q8H ADAIR Ondansetron HCl (Zofran) 4 mg IV Q4H PRN PRN Reason: Nausea/Vomiting Oxycodone HCl (Oxycodone) 5 mg PO Q4H PRN PRN Reason: Pain (moderate 4-6) Discontinued Medications Sodium Chloride (Normal Saline) 500 mls @ 999 mls/hr IV .BOLUS ONE Stop: 04/13/20 14:34 Last Admin: 04/13/20 14:25 Dose: 999 mls/hr Documented by: Sepsis Event Note - Evaluation Sepsis Screening Result: No Definite Risk - Focused Exam Vital Signs: Vital Signs Temp Pulse Resp BP Pulse Ox 04/13/20 15:39 36.7 C 69 16 121/61 100 04/13/20 14:33 36.6 C 74 20 139/63 - Problem List & Annotations (1) Acute kidney injury SNOMED Code(s): 01328842, 29521500 Code(s): N17.9 - ACUTE KIDNEY FAILURE, UNSPECIFIED Status: Acute Priority: Medium Current Visit: Yes Onset Date: ~04/13/20 - Problem List Review Problem List Initiated/Reviewed/Updated: Yes - My Orders Last 24 Hours: My Active Orders 04/13/20 Breakfast Consistent Carbohydrate Diet [DIET] 04/13/20 17:26 Orthostatic Vital Signs [RC] ASDIRECTED PT Evaluation and Treatment [CONS] Routine INR,PT,PROTHROMBIN TIME [COAG] Routine 04/13/20 17:28 OT Evaluation and Treatment [CONS] Routine 04/13/20 17:35 Antiembolic Devices [RC] .Routine Blood Glucose Check, Bedside [RC] WITHMEALSANDBED Cardiac Monitoring [RC] CONTINUOUS Height and Weight [RC] DAILY Intake and Output [RC] QSHIFT Oxygen Therapy [RC] PRN Pulse Oximetry [RC] CONTINUOUS Up With Assistance [RC] ASDIRECTED VTE/DVT Education [RC] Per Unit Routine Vital Signs [RC] Q4H CREATINE KINASE,CK [CHEM] Routine Acetaminophen [TylenoL] 650 mg PO Q4H PRN Ondansetron [Zofran] 4 mg IV Q4H PRN oxyCODONE 5 mg PO Q4H PRN Antiembolic Hose [OM.PC] Per Unit Routine Sequential Compression Device [OM.PC] Per Unit Routine 04/13/20 17:45 Heparin Sodium 5,000 units SUBCUT Q8H 04/14/20 05:11 BASIC METABOLIC PANEL,BMP [CHEM] AM CBC WITH AUTO DIFF [HEME] AM MAGNESIUM [CHEM] AM PHOSPHORUS [CHEM] AM - Assessment Assessment:: Myles Bridges Hospitalist CONSULTATION NOTE: eHospitalist was contacted by Jenny Torres NP with request of consultation for admission support. Reason for consult: Unwitnessed fall, MARGARITA HPI: Patient is a 64-year-old male with pmh of HTN, DM, CAD s/p CABG X4 (Oct 2016) who was brought to the ED via EMS after neighbors found him on the floor. Patient is a poor historian. No family at bedside. Per ED provider, patient had an unwitnessed fall last night and had laid on the floor all night. Neighbors found him on the floor and called EMS. Vital stable when EMS found him. Patient reports that he had a fall either last night or the night before, he cannot recall when. Says this is not new for him and that it has happened before. He says his legs gave out underneath him. Says he lives alone and picks up his meals, there is a lady at his apartment building who comes in to check on him frequently. Says he only recalls some details about his fall. Says he fell on his left side, hit his head and then blacked out. Says he does not drink alcohol, last drink was several years ago. Denies history of seizures but says he felt like he had a seizure. Denies loss of bowel or bladder continence. Denies any headaches or dizziness, blurry vision, chest pain or palpitations prior to the fall. Denies any fevers or chills, chest pain or shortness of breath, headaches or dizziness, abdominal pain, nausea or vomiting, constipation or diarrhea, numbness or tingling, focal weakness. Work-up in the ED: -CBC with no leukocytosis, hemoglobin at baseline (9.6), platelets normal -Sodium 134, potassium, chloride and bicarb normal, BUN elevated 67, creatinine 2.8 (from baseline 1.4), -LFTs elevated-T bili 2.7, AST 47, ALT 33, alk phos 234, ammonia 45 -D-dimer 2480 -Head CT with no acute intracranial abnormalities -CXR with no consolidation, pleural effusion, pneumothorax -Left shoulder x-ray with no evidence of fracture or subluxation per my read. -I am unable to view the EKG on EMR, per ED provider shows sinus rhythm with first-degree AV block. No ischemic ranges. Home Medications: Rifaximin, lamictal, bupropion, allopurinol, Gabapentin 1200 qpm, levemir 20 units BID, novolog SSI with meals, MVT, seroquel 100 BID, Lisinopril 40 mg daily, leflunomide 10 mg daily, lopressor 50 BID, protonix 40 bid, Pertinent Medical History: HTN, DM, CAD s/p CABG X4 (Oct 2016), peripheral neuropathy Pertinent Social History: Does not drink, former smoker, quit 4 years ago, lives alone Exam (performed via interactive video with assistance of bedside nurse): General: Awake alert, cooperative, does not appear to be in any acute distress HEENT: Oral mucosa slightly dry Lungs: Clear to auscultation bilaterally CV: Regular rate and rhythm, no murmurs rubs or gallops Abd: Bowel sounds present, nondistended Ext: No pitting edema Skin: Multiple bruises on upper and lower extremities at different stages of healing. Neuro: Awake alert, oriented to self. Moving all extremities. Demonstrates good motor strength in bilateral upper and lower extremities per evaluation by bedside nurse follows on camera. No facial drooping. Good hand eye coronation. Assessment and Plan: Patient is a 64-year-old male with pmh of HTN, IDDM, CAD s/p CABG X4 who was brought in after an unwitnessed fall at home. Poor historian and is unable to recall some details but says he believes it is from his legs giving out. #Unwitnessed fall #Syncope Vitals reviewed, stable. -Obtain EtOH level, UDS, UA, coags, troponin -Obtain orthostatic vital signs. -Less likely seizure but would monitor closely. Less likely cardiac etiology or stroke. #MARGARITA on CKD Likely prerenal from decreased p.o. intake. Was given 1 L IV fluids in the ED. -We will continue with maintenance fluids at 100 cc an hour X 10 hours. -Obtain repeat BMP and reevaluate volume status in a.m. #Insulin-dependent diabetes -Hold long-acting insulin. -Placed on sliding scale insulin Other chronic medical conditions: Hold antihypertensives, home meds need to be reconciled and restarted Carb controlled diet DVT prophylaxis: SCDs, heparin SQ GI Px: restart protonix once meds reconciled Thank you for including Myles Bridges Hospitalist in the patients care. This service is available for further assistance as requested by your care team by calling [phone].
[2020-04-13] MEDS ORDERED: 50% Dextrose in Water 50 ML Syringe IVPUSH PRN (17:43)
[2020-04-13] MEDS ORDERED: Glucagon,Human Recombinant 1 MG Vial IM PRN (17:43)
[2020-04-13] MEDS: Lactated Ringers 1,000 ML IV SCH (18:56)
[2020-04-13] MEDS: Insulin Lispro 100 Unit/ML 3 ML KwikPen SUBCUT SCH ×2 (19:06→19:55)
[2020-04-13] MEDS: cefTRIAXone 1 GM in Sodium Chloride 0.9% 50 ML IV SCH (19:30)
[2020-04-13] MEDS: Heparin Sodium 5,000 Units/ML Vial SUBCUT SCH (19:52)
[2020-04-14] MEDS: Heparin Sodium 5,000 Units/ML Vial SUBCUT SCH ×3 (02:00→17:32)
[2020-04-14] MEDS: Lactated Ringers 1,000 ML IV SCH ×2 (06:18→13:10)
[2020-04-14] MEDS: Insulin Lispro 100 Unit/ML 3 ML KwikPen SUBCUT SCH ×4 (09:15→20:31)
[2020-04-14] MEDS ORDERED: lamoTRIgine 25 MG Tab PO SCH (09:15)
[2020-04-14] MEDS: Nystatin Topical Powder 15 GM Bottle TOP SCH ×2 (09:26→20:30)
[2020-04-14] MEDS: predniSONE 5 MG Tab PO SCH (09:27)
[2020-04-14] MEDS: Calcium Carbonate/Vitamin D3 1500 MG-400 Units Tab PO SCH (09:27)
[2020-04-14] MEDS: Metoprolol Tartrate 50 MG Tab PO SCH ×2 (09:27→20:33)
[2020-04-14] MEDS: buPROPion 300 MG Tab.ER PO SCH (09:27)
[2020-04-14] MEDS: Multivitamins with Iron/Calcium/Folic Acid/Minerals Tab PO SCH (09:27)
[2020-04-14] MEDS: Ferrous Sulfate 325 MG Tab PO SCH (09:27)
[2020-04-14] MEDS: Rifaximin 550 MG Tab PO SCH ×2 (09:27→19:40)
[2020-04-14] MEDS: Leflunomide 20 MG Tab PO SCH (10:42)
[2020-04-14] MEDS: Insulin Glargine,Human Rec. Analog 100 Units/ML 3 ML Pen SUBCUT SCH ×2 (11:03→20:32)
[2020-04-14] MEDS ORDERED: Insulin Aspart 100 Units/ML 3 ML Pen SUBCUT SCH (12:00)
--- NOTE | 2020-04-14 12:43 | PCM.PN ---
- General Info Date of Service: 04/14/20 Subjective Update: patient is seen to day on daily round . He is feeling better , There was rash on groin area -cleaned & nystatin The patient was not able to sleep during last night labs reviewed - The patient is taking oral food & drinks ON antibiotic for UTI . denies any fever ,N/V ,chest pain ,headache Or dizziness - Review of Systems General: Reports: Weakness, Fatigue HEENT: Reports: No Symptoms Pulmonary: Reports: No Symptoms Cardiovascular: Reports: No Symptoms Gastrointestinal: Reports: No Symptoms Genitourinary: Reports: Burning Musculoskeletal: Reports: No Symptoms Skin: Reports: Rash (noted on groin area ) Neurological: Reports: No Symptoms Psychiatric: Reports: No Symptoms - Patient Data Vitals - Most Recent: Last Vital Signs Temp 98.3 F 04/14/20 09:00 Pulse 79 04/14/20 09:27 Resp 16 04/14/20 09:00 BP 151/79 H 04/14/20 09:27 Pulse Ox 96 04/14/20 09:00 Weight - Most Recent: 251 lb 2 oz I&O - Last 24 Hours: Intake & Output 04/13/20 04/14/20 04/14/20 22:59 06:59 14:59 Intake Total 300 450 Output Total 500 1300 Balance -200 -850 Lab Results Last 24 Hours: Laboratory Results - last 24 hr 04/13/20 04/13/20 04/13/20 Range/Units 13:41 13:45 13:45 WBC 10.8 D (4.0-11.0) K/uL RBC 3.40 L (4.50-6.50) M/uL Hgb 9.6 L (13.0-18.0) g/dL Hct 30.9 L (40.0-54.0) % MCV 91 (76-96) fL MCH 28.2 (27.0-32.0) pg MCHC 31.1 (31.0-35.0) g/dL RDW 20.7 H (11.0-16.0) % Plt Count 174 D (150-400) K/uL MPV 10.5 H (6.0-10.0) fL Neut % (Auto) 75.9 H (45.0-70.0) % Lymph % (Auto) 11.2 L (20.0-40.0) % Coos % (Auto) 9.3 (3.0-10.0) % Eos % (Auto) 2.7 (1.0-5.0) % Baso % (Auto) 0.9 H (0.0-0.5) % Neut # (Auto) 8.19 H (2.00-7.50) K/uL Lymph # (Auto) 1.21 L (1.50-4.00) K/uL Coos # (Auto) 1.00 H (0.20-0.80) K/uL Eos # (Auto) 0.29 (0.04-0.40) K/uL Baso # (Auto) 0.10 (0.02-0.10) K/uL PT (9.0-11.5) sec INR (1.0-3.5) D-Dimer, Quantitative (0-400) ng/mL Sodium 134 L (136-145) mmol/L Potassium 3.6 (3.5-5.1) mmol/L Chloride 99 (98-107) mmol/L Carbon Dioxide 31.2 (21.0-32.0) mmol/L Anion Gap 7.4 (5.0-15.0) mmol/L BUN 67 H* D (8-26) mg/dL Creatinine 2.38 H D (0.70-1.30) mg/dL Est Cr Clr Drug Dosing TNP Estimated GFR (MDRD) 27 L (>60) MLS/MIN BUN/Creatinine Ratio 28.2 H (6-25) Glucose 198 H (74-100) mg/dL POC Glucose (74-110) mg/dL Calcium 9.2 (8.5-10.1) mg/dL Phosphorus (2.5-4.9) mg/dL Magnesium (1.8-2.4) mg/dL Total Bilirubin 2.7 H D (0.0-1.0) mg/dL AST 47 H (15-37) U/L ALT 33 (12-78) U/L Alkaline Phosphatase 234 H (46-116) U/L Ammonia (11-32) umol/L Creatine Kinase (21-232) U/L Troponin I (0.000-0.060) ng/mL Total Protein 8.0 (6.4-8.2) g/dL Albumin 3.1 L (3.4-5.0) g/dL Globulin 4.9 H (2.2-4.2) g/dL Albumin/Globulin Ratio 0.6 L (0.8-2.0) Urine Color Urine Appearance (CLEAR) Urine pH (5.0-8.0) Ur Specific Yoder (1.003-1.030) Urine Protein (NEGATIVE) mg/dL Urine Glucose (UA) (NEGATIVE) mg/dL Urine Ketones (NEGATIVE) mg/dL Urine Occult Blood (NEGATIVE) Urine Nitrite (NEGATIVE) Urine Bilirubin (NEGATIVE) Urine Urobilinogen (0.2-1.0) E.U./dL Ur Leukocyte Esterase (NEGATIVE) Urine RBC /HPF Urine WBC /HPF Ur Squamous Epith Cells /HPF Urine Bacteria /HPF Urine Opiates Screen (NEGATIVE) Ur Oxycodone Screen (NEGATIVE) Urine Methadone Screen (NEGATIVE) Ur Barbiturates Screen (NEGATIVE) Ur Tricyclics Screen (NEGATIVE) Ur Phencyclidine Scrn (NEGATIVE) Ur Amphetamine Screen (NEGATIVE) U Methamphetamines Scrn (NEGATIVE) Urine MDMA Screen (NEGATIVE) U Benzodiazepines Scrn (NEGATIVE) U Cocaine Metab Screen (NEGATIVE) U Marijuana (THC) Screen (NEGATIVE) Ethyl Alcohol < 3.0 (<3.0) mg/dL SARS-CoV-2 RNA (KONSTANTIN) (NEGATIVE) 04/13/20 04/13/20 04/13/20 Range/Units 13:45 13:45 13:45 WBC (4.0-11.0) K/uL RBC (4.50-6.50) M/uL Hgb (13.0-18.0) g/dL Hct (40.0-54.0) % MCV (76-96) fL MCH (27.0-32.0) pg MCHC (31.0-35.0) g/dL RDW (11.0-16.0) % Plt Count (150-400) K/uL MPV (6.0-10.0) fL Neut % (Auto) (45.0-70.0) % Lymph % (Auto) (20.0-40.0) % Coos % (Auto) (3.0-10.0) % Eos % (Auto) (1.0-5.0) % Baso % (Auto) (0.0-0.5) % Neut # (Auto) (2.00-7.50) K/uL Lymph # (Auto) (1.50-4.00) K/uL Coos # (Auto) (0.20-0.80) K/uL Eos # (Auto) (0.04-0.40) K/uL Baso # (Auto) (0.02-0.10) K/uL PT 13.0 H (9.0-11.5) sec INR 1.3 (1.0-3.5) D-Dimer, Quantitative (0-400) ng/mL Sodium (136-145) mmol/L Potassium (3.5-5.1) mmol/L Chloride (98-107) mmol/L Carbon Dioxide (21.0-32.0) mmol/L Anion Gap (5.0-15.0) mmol/L BUN (8-26) mg/dL Creatinine (0.70-1.30) mg/dL Est Cr Clr Drug Dosing Estimated GFR (MDRD) (>60) MLS/MIN BUN/Creatinine Ratio (6-25) Glucose (74-100) mg/dL POC Glucose (74-110) mg/dL Calcium (8.5-10.1) mg/dL Phosphorus (2.5-4.9) mg/dL Magnesium (1.8-2.4) mg/dL Total Bilirubin (0.0-1.0) mg/dL AST (15-37) U/L ALT (12-78) U/L Alkaline Phosphatase (46-116) U/L Ammonia (11-32) umol/L Creatine Kinase 59 (21-232) U/L Troponin I 0.031 D (0.000-0.060) ng/mL Total Protein (6.4-8.2) g/dL Albumin (3.4-5.0) g/dL Globulin (2.2-4.2) g/dL Albumin/Globulin Ratio (0.8-2.0) Urine Color Urine Appearance (CLEAR) Urine pH (5.0-8.0) Ur Specific Yoder (1.003-1.030) Urine Protein (NEGATIVE) mg/dL Urine Glucose (UA) (NEGATIVE) mg/dL Urine Ketones (NEGATIVE) mg/dL Urine Occult Blood (NEGATIVE) Urine Nitrite (NEGATIVE) Urine Bilirubin (NEGATIVE) Urine Urobilinogen (0.2-1.0) E.U./dL Ur Leukocyte Esterase (NEGATIVE) Urine RBC /HPF Urine WBC /HPF Ur Squamous Epith Cells /HPF Urine Bacteria /HPF Urine Opiates Screen (NEGATIVE) Ur Oxycodone Screen (NEGATIVE) Urine Methadone Screen (NEGATIVE) Ur Barbiturates Screen (NEGATIVE) Ur Tricyclics Screen (NEGATIVE) Ur Phencyclidine Scrn (NEGATIVE) Ur Amphetamine Screen (NEGATIVE) U Methamphetamines Scrn (NEGATIVE) Urine MDMA Screen (NEGATIVE) U Benzodiazepines Scrn (NEGATIVE) U Cocaine Metab Screen (NEGATIVE) U Marijuana (THC) Screen (NEGATIVE) Ethyl Alcohol (<3.0) mg/dL SARS-CoV-2 RNA (KONSTANTIN) (NEGATIVE) 04/13/20 04/13/20 04/13/20 Range/Units 13:50 13:54 13:56 WBC (4.0-11.0) K/uL RBC (4.50-6.50) M/uL Hgb (13.0-18.0) g/dL Hct (40.0-54.0) % MCV (76-96) fL MCH (27.0-32.0) pg MCHC (31.0-35.0) g/dL RDW (11.0-16.0) % Plt Count (150-400) K/uL MPV (6.0-10.0) fL Neut % (Auto) (45.0-70.0) % Lymph % (Auto) (20.0-40.0) % Coos % (Auto) (3.0-10.0) % Eos % (Auto) (1.0-5.0) % Baso % (Auto) (0.0-0.5) % Neut # (Auto) (2.00-7.50) K/uL Lymph # (Auto) (1.50-4.00) K/uL Coos # (Auto) (0.20-0.80) K/uL Eos # (Auto) (0.04-0.40) K/uL Baso # (Auto) (0.02-0.10) K/uL PT (9.0-11.5) sec INR (1.0-3.5) D-Dimer, Quantitative 2480 H (0-400) ng/mL Sodium (136-145) mmol/L Potassium (3.5-5.1) mmol/L Chloride (98-107) mmol/L Carbon Dioxide (21.0-32.0) mmol/L Anion Gap (5.0-15.0) mmol/L BUN (8-26) mg/dL Creatinine (0.70-1.30) mg/dL Est Cr Clr Drug Dosing Estimated GFR (MDRD) (>60) MLS/MIN BUN/Creatinine Ratio (6-25) Glucose (74-100) mg/dL POC Glucose (74-110) mg/dL Calcium (8.5-10.1) mg/dL Phosphorus (2.5-4.9) mg/dL Magnesium 2.0 (1.8-2.4) mg/dL Total Bilirubin (0.0-1.0) mg/dL AST (15-37) U/L ALT (12-78) U/L Alkaline Phosphatase (46-116) U/L Ammonia (11-32) umol/L Creatine Kinase (21-232) U/L Troponin I (0.000-0.060) ng/mL Total Protein (6.4-8.2) g/dL Albumin (3.4-5.0) g/dL Globulin (2.2-4.2) g/dL Albumin/Globulin Ratio (0.8-2.0) Urine Color Urine Appearance (CLEAR) Urine pH (5.0-8.0) Ur Specific Yoder (1.003-1.030) Urine Protein (NEGATIVE) mg/dL Urine Glucose (UA) (NEGATIVE) mg/dL Urine Ketones (NEGATIVE) mg/dL Urine Occult Blood (NEGATIVE) Urine Nitrite (NEGATIVE) Urine Bilirubin (NEGATIVE) Urine Urobilinogen (0.2-1.0) E.U./dL Ur Leukocyte Esterase (NEGATIVE) Urine RBC /HPF Urine WBC /HPF Ur Squamous Epith Cells /HPF Urine Bacteria /HPF Urine Opiates Screen (NEGATIVE) Ur Oxycodone Screen (NEGATIVE) Urine Methadone Screen (NEGATIVE) Ur Barbiturates Screen (NEGATIVE) Ur Tricyclics Screen (NEGATIVE) Ur Phencyclidine Scrn (NEGATIVE) Ur Amphetamine Screen (NEGATIVE) U Methamphetamines Scrn (NEGATIVE) Urine MDMA Screen (NEGATIVE) U Benzodiazepines Scrn (NEGATIVE) U Cocaine Metab Screen (NEGATIVE) U Marijuana (THC) Screen (NEGATIVE) Ethyl Alcohol (<3.0) mg/dL SARS-CoV-2 RNA (KONSTANTIN) Negative (NEGATIVE) 04/13/20 04/13/20 04/13/20 Range/Units 14:11 16:35 16:42 WBC (4.0-11.0) K/uL RBC (4.50-6.50) M/uL Hgb (13.0-18.0) g/dL Hct (40.0-54.0) % MCV (76-96) fL MCH (27.0-32.0) pg MCHC (31.0-35.0) g/dL RDW (11.0-16.0) % Plt Count (150-400) K/uL MPV (6.0-10.0) fL Neut % (Auto) (45.0-70.0) % Lymph % (Auto) (20.0-40.0) % Coos % (Auto) (3.0-10.0) % Eos % (Auto) (1.0-5.0) % Baso % (Auto) (0.0-0.5) % Neut # (Auto) (2.00-7.50) K/uL Lymph # (Auto) (1.50-4.00) K/uL Coos # (Auto) (0.20-0.80) K/uL Eos # (Auto) (0.04-0.40) K/uL Baso # (Auto) (0.02-0.10) K/uL PT (9.0-11.5) sec INR (1.0-3.5) D-Dimer, Quantitative (0-400) ng/mL Sodium (136-145) mmol/L Potassium (3.5-5.1) mmol/L Chloride (98-107) mmol/L Carbon Dioxide (21.0-32.0) mmol/L Anion Gap (5.0-15.0) mmol/L BUN (8-26) mg/dL Creatinine (0.70-1.30) mg/dL Est Cr Clr Drug Dosing Estimated GFR (MDRD) (>60) MLS/MIN BUN/Creatinine Ratio (6-25) Glucose (74-100) mg/dL POC Glucose 174 H (74-110) mg/dL Calcium (8.5-10.1) mg/dL Phosphorus (2.5-4.9) mg/dL Magnesium (1.8-2.4) mg/dL Total Bilirubin (0.0-1.0) mg/dL AST (15-37) U/L ALT (12-78) U/L Alkaline Phosphatase (46-116) U/L Ammonia 45 H (11-32) umol/L Creatine Kinase (21-232) U/L Troponin I (0.000-0.060) ng/mL Total Protein (6.4-8.2) g/dL Albumin (3.4-5.0) g/dL Globulin (2.2-4.2) g/dL Albumin/Globulin Ratio (0.8-2.0) Urine Color Yellow Urine Appearance Slightly cloudy (CLEAR) Urine pH 7.0 (5.0-8.0) Ur Specific Yoder 1.020 (1.003-1.030) Urine Protein Trace H (NEGATIVE) mg/dL Urine Glucose (UA) Negative (NEGATIVE) mg/dL Urine Ketones Negative (NEGATIVE) mg/dL Urine Occult Blood Negative (NEGATIVE) Urine Nitrite Positive H (NEGATIVE) Urine Bilirubin Negative (NEGATIVE) Urine Urobilinogen 1.0 (0.2-1.0) E.U./dL Ur Leukocyte Esterase Trace H (NEGATIVE) Urine RBC Not seen /HPF Urine WBC 5-10 H /HPF Ur Squamous Epith Cells Few /HPF Urine Bacteria Many H /HPF Urine Opiates Screen (NEGATIVE) Ur Oxycodone Screen (NEGATIVE) Urine Methadone Screen (NEGATIVE) Ur Barbiturates Screen (NEGATIVE) Ur Tricyclics Screen (NEGATIVE) Ur Phencyclidine Scrn (NEGATIVE) Ur Amphetamine Screen (NEGATIVE) U Methamphetamines Scrn (NEGATIVE) Urine MDMA Screen (NEGATIVE) U Benzodiazepines Scrn (NEGATIVE) U Cocaine Metab Screen (NEGATIVE) U Marijuana (THC) Screen (NEGATIVE) Ethyl Alcohol (<3.0) mg/dL SARS-CoV-2 RNA (KONSTANTIN) (NEGATIVE) 04/13/20 04/13/20 04/14/20 Range/Units 16:43 18:51 06:37 WBC (4.0-11.0) K/uL RBC (4.50-6.50) M/uL Hgb (13.0-18.0) g/dL Hct (40.0-54.0) % MCV (76-96) fL MCH (27.0-32.0) pg MCHC (31.0-35.0) g/dL RDW (11.0-16.0) % Plt Count (150-400) K/uL MPV (6.0-10.0) fL Neut % (Auto) (45.0-70.0) % Lymph % (Auto) (20.0-40.0) % Coos % (Auto) (3.0-10.0) % Eos % (Auto) (1.0-5.0) % Baso % (Auto) (0.0-0.5) % Neut # (Auto) (2.00-7.50) K/uL Lymph # (Auto) (1.50-4.00) K/uL Coos # (Auto) (0.20-0.80) K/uL Eos # (Auto) (0.04-0.40) K/uL Baso # (Auto) (0.02-0.10) K/uL PT (9.0-11.5) sec INR (1.0-3.5) D-Dimer, Quantitative (0-400) ng/mL Sodium (136-145) mmol/L Potassium (3.5-5.1) mmol/L Chloride (98-107) mmol/L Carbon Dioxide (21.0-32.0) mmol/L Anion Gap (5.0-15.0) mmol/L BUN (8-26) mg/dL Creatinine (0.70-1.30) mg/dL Est Cr Clr Drug Dosing Estimated GFR (MDRD) (>60) MLS/MIN BUN/Creatinine Ratio (6-25) Glucose (74-100) mg/dL POC Glucose 179 H 264 H (74-110) mg/dL Calcium (8.5-10.1) mg/dL Phosphorus (2.5-4.9) mg/dL Magnesium (1.8-2.4) mg/dL Total Bilirubin (0.0-1.0) mg/dL AST (15-37) U/L ALT (12-78) U/L Alkaline Phosphatase (46-116) U/L Ammonia (11-32) umol/L Creatine Kinase (21-232) U/L Troponin I (0.000-0.060) ng/mL Total Protein (6.4-8.2) g/dL Albumin (3.4-5.0) g/dL Globulin (2.2-4.2) g/dL Albumin/Globulin Ratio (0.8-2.0) Urine Color Urine Appearance (CLEAR) Urine pH (5.0-8.0) Ur Specific Yoder (1.003-1.030) Urine Protein (NEGATIVE) mg/dL Urine Glucose (UA) (NEGATIVE) mg/dL Urine Ketones (NEGATIVE) mg/dL Urine Occult Blood (NEGATIVE) Urine Nitrite (NEGATIVE) Urine Bilirubin (NEGATIVE) Urine Urobilinogen (0.2-1.0) E.U./dL Ur Leukocyte Esterase (NEGATIVE) Urine RBC /HPF Urine WBC /HPF Ur Squamous Epith Cells /HPF Urine Bacteria /HPF Urine Opiates Screen Negative (NEGATIVE) Ur Oxycodone Screen Negative (NEGATIVE) Urine Methadone Screen Negative (NEGATIVE) Ur Barbiturates Screen Negative (NEGATIVE) Ur Tricyclics Screen Negative (NEGATIVE) Ur Phencyclidine Scrn Negative (NEGATIVE) Ur Amphetamine Screen Negative (NEGATIVE) U Methamphetamines Scrn Negative (NEGATIVE) Urine MDMA Screen Negative (NEGATIVE) U Benzodiazepines Scrn Negative (NEGATIVE) U Cocaine Metab Screen Negative (NEGATIVE) U Marijuana (THC) Screen Negative (NEGATIVE) Ethyl Alcohol (<3.0) mg/dL SARS-CoV-2 RNA (KONSTANTIN) (NEGATIVE) 04/14/20 04/14/20 04/14/20 Range/Units 09:05 09:05 10:59 WBC 7.6 D (4.0-11.0) K/uL RBC 3.25 L (4.50-6.50) M/uL Hgb 9.1 L (13.0-18.0) g/dL Hct 30.4 L (40.0-54.0) % MCV 94 (76-96) fL MCH 28.0 (27.0-32.0) pg MCHC 29.9 L (31.0-35.0) g/dL RDW 20.8 H (11.0-16.0) % Plt Count 113 L D (150-400) K/uL MPV 10.6 H (6.0-10.0) fL Neut % (Auto) 75.6 H (45.0-70.0) % Lymph % (Auto) 10.6 L (20.0-40.0) % Coos % (Auto) 8.7 (3.0-10.0) % Eos % (Auto) 4.2 (1.0-5.0) % Baso % (Auto) 0.9 H (0.0-0.5) % Neut # (Auto) 5.73 (2.00-7.50) K/uL Lymph # (Auto) 0.80 L (1.50-4.00) K/uL Coos # (Auto) 0.66 (0.20-0.80) K/uL Eos # (Auto) 0.32 (0.04-0.40) K/uL Baso # (Auto) 0.07 (0.02-0.10) K/uL PT (9.0-11.5) sec INR (1.0-3.5) D-Dimer, Quantitative (0-400) ng/mL Sodium 139 (136-145) mmol/L Potassium 4.0 (3.5-5.1) mmol/L Chloride 102 (98-107) mmol/L Carbon Dioxide 32.0 (21.0-32.0) mmol/L Anion Gap 9.0 (5.0-15.0) mmol/L BUN 48 H D (8-26) mg/dL Creatinine 1.82 H D (0.70-1.30) mg/dL Est Cr Clr Drug Dosing 43.82 Estimated GFR (MDRD) 37 L (>60) MLS/MIN BUN/Creatinine Ratio 26.4 H (6-25) Glucose 187 H (74-100) mg/dL POC Glucose 177 H (74-110) mg/dL Calcium 8.8 (8.5-10.1) mg/dL Phosphorus 3.1 (2.5-4.9) mg/dL Magnesium 1.7 L (1.8-2.4) mg/dL Total Bilirubin (0.0-1.0) mg/dL AST (15-37) U/L ALT (12-78) U/L Alkaline Phosphatase (46-116) U/L Ammonia (11-32) umol/L Creatine Kinase (21-232) U/L Troponin I (0.000-0.060) ng/mL Total Protein (6.4-8.2) g/dL Albumin (3.4-5.0) g/dL Globulin (2.2-4.2) g/dL Albumin/Globulin Ratio (0.8-2.0) Urine Color Urine Appearance (CLEAR) Urine pH (5.0-8.0) Ur Specific Yoder (1.003-1.030) Urine Protein (NEGATIVE) mg/dL Urine Glucose (UA) (NEGATIVE) mg/dL Urine Ketones (NEGATIVE) mg/dL Urine Occult Blood (NEGATIVE) Urine Nitrite (NEGATIVE) Urine Bilirubin (NEGATIVE) Urine Urobilinogen (0.2-1.0) E.U./dL Ur Leukocyte Esterase (NEGATIVE) Urine RBC /HPF Urine WBC /HPF Ur Squamous Epith Cells /HPF Urine Bacteria /HPF Urine Opiates Screen (NEGATIVE) Ur Oxycodone Screen (NEGATIVE) Urine Methadone Screen (NEGATIVE) Ur Barbiturates Screen (NEGATIVE) Ur Tricyclics Screen (NEGATIVE) Ur Phencyclidine Scrn (NEGATIVE) Ur Amphetamine Screen (NEGATIVE) U Methamphetamines Scrn (NEGATIVE) Urine MDMA Screen (NEGATIVE) U Benzodiazepines Scrn (NEGATIVE) U Cocaine Metab Screen (NEGATIVE) U Marijuana (THC) Screen (NEGATIVE) Ethyl Alcohol (<3.0) mg/dL SARS-CoV-2 RNA (KONSTANTIN) (NEGATIVE) Abran Results Last 24 Hours: Microbiology 04/13/20 16:42 Urine Culture - Preliminary Urine, Voided Gram Negative Rods Med Orders - Current: Current Medications Acetaminophen (Tylenol) 650 mg PO Q4H PRN PRN Reason: Pain (Mild 1-3)/fever Last Admin: 04/13/20 22:36 Dose: 650 mg Documented by: Allopurinol (Zyloprim) 150 mg PO QPM ADAIR Allopurinol (Zyloprim) 300 mg PO DAILY [facility] Bupropion HCl (Wellbutrin Xl) 300 mg PO DAILY [facility] Last Admin: 04/14/20 09:27 Dose: 300 mg Documented by: Calcium Carbonate (Caltrate 600+D 1500 Mg-400 Units) 1 tab PO DAILY ADAIR Last Admin: 04/14/20 09:27 Dose: 1 tab Documented by: Dextrose/Water (Dextrose 50% In Water) 50 ml IVPUSH ASDIRECTED PRN PRN Reason: Hypoglycemia Ferrous Sulfate (Ferrous Sulfate) 325 mg PO DAILY [facility] Last Admin: 04/14/20 09:27 Dose: 325 mg Documented by: Gabapentin (Neurontin) 1,200 mg PO QPM [facility] Glucagon (Glucagen) 1 mg IM ASDIRECTED PRN PRN Reason: Hypoglycemia Heparin Sodium (Porcine) (Heparin Sodium) 5,000 units SUBCUT Q8H [facility] Last Admin: 04/14/20 11:03 Dose: 5,000 units Documented by: Lactated Ringer's (Ringers, Lactated) 1,000 mls @ 100 mls/hr IV ASDIRECTED [facility] Last Admin: 04/14/20 06:18 Dose: 100 mls/hr Documented by: Ceftriaxone Sodium 1 gm/ (Sodium Chloride) 50 mls @ 100 mls/hr IV Q24H [facility] Stop: 04/15/20 20:00 Last Admin: 04/13/20 19:30 Dose: 100 mls/hr Documented by: Insulin Glargine (Lantus Solostar) 20 units SUBCUT BID [facility] Last Admin: 04/14/20 11:03 Dose: 20 units Documented by: Insulin Human Lispro (Humalog) 0 unit SUBCUT QIDACANDBED [facility] Last Admin: 04/14/20 12:02 Dose: 2 units Documented by: Leflunomide (Arava) 10 mg PO DAILY [facility] Last Admin: 04/14/20 10:42 Dose: Not Given Documented by: Lisinopril (Prinivil) 40 mg PO DAILY [facility] Last Admin: 04/14/20 09:27 Dose: 40 mg Documented by: Metoprolol Tartrate (Lopressor) 50 mg PO BID [facility] Last Admin: 04/14/20 09:27 Dose: 50 mg Documented by: Multivitamins/Minerals (Thera M Plus) 1 tab PO DAILY [facility] Last Admin: 04/14/20 09:27 Dose: 1 tab Documented by: Lamictal 100 Mg Tabs (*Non-Formulary Med*) 0 each PO DAILY [facility] Nystatin (Nystop) 0 gm TOP BID [facility] Last Admin: 04/14/20 09:26 Dose: 1 applic Documented by: Ondansetron HCl (Zofran) 4 mg IV Q4H PRN PRN Reason: Nausea/Vomiting Pantoprazole Sodium (Protonix) 40 mg PO BIDMEALS [facility] Prednisone (Prednisone) 5 mg PO DAILY [facility] Last Admin: 04/14/20 09:27 Dose: 5 mg Documented by: Quetiapine Fumarate (Seroquel) 200 mg PO BEDTIME [facility] Quetiapine Fumarate (Seroquel) 100 mg PO DAILY [facility] Last Admin: 04/14/20 09:27 Dose: 100 mg Documented by: Rifaximin (Xifaxan) 550 mg PO BID [facility] Last Admin: 04/14/20 09:27 Dose: 550 mg Documented by: Discontinued Medications Sodium Chloride (Normal Saline) 500 mls @ 999 mls/hr IV .BOLUS ONE Stop: 04/13/20 14:34 Last Admin: 04/13/20 14:25 Dose: 999 mls/hr Documented by: Insulin Aspart (Novolog) 0 unit SUBCUT TIDMEALS [facility]; Protocol Lamotrigine (Lamictal) 150 mg PO DAILY [facility] Last Admin: 04/14/20 09:28 Dose: 150 mg Documented by: Lamotrigine (Lamotrigine) 50 mg PO DAILY [facility] Last Admin: 04/14/20 09:28 Dose: 50 mg Documented by: Oxycodone HCl (Oxycodone) 5 mg PO Q4H PRN PRN Reason: Pain (moderate 4-6) Last Admin: 04/13/20 22:34 Dose: 5 mg Documented by: - Exam General: Alert, Oriented, Mild Distress Lungs: Clear to Auscultation Cardiovascular: Regular Rate, Regular Rhythm GI/Abdominal Exam: Normal Bowel Sounds (Male) Exam: Other (rash on groin area) Back Exam: Normal Inspection Extremities: Normal Inspection Skin: Intact Sepsis Event Note - Evaluation Sepsis Screening Result: No Definite Risk - Focused Exam Vital Signs: Vital Signs Temp Pulse Pulse Resp BP BP Pulse Ox 04/14/20 09:27 79 151/79 H 04/14/20 09:00 98.3 F 79 16 151/71 H 96 04/14/20 05:00 98.4 F 78 18 128/70 98 04/14/20 01:00 98 F 77 18 122/67 100 - Problem List & Annotations (1) Acute kidney injury SNOMED Code(s): 76978545, 72397436 Code(s): N17.9 - ACUTE KIDNEY FAILURE, UNSPECIFIED Status: Acute Priority: Medium Current Visit: Yes Onset Date: ~04/13/20 (2) UTI (urinary tract infection) SNOMED Code(s): 34508438 Code(s): N39.0 - URINARY TRACT INFECTION, SITE NOT SPECIFIED Status: Acute Priority: Medium Current Visit: Yes Qualifiers: Encounter type: initial encounter - Problem List Review Problem List Initiated/Reviewed/Updated: No - My Orders Last 24 Hours: My Active Orders 04/13/20 13:41 EKG 12 Lead [EK] Routine 04/13/20 13:42 EKG Documentation Completion [RC] ASDIRECTED 04/13/20 14:57 Shoulder Comp Lt [CR] Stat 04/13/20 15:00 Chest 1V Frontal [CR] Stat 04/13/20 15:16 Admission Status [Patient Status] [ADT] Routine 04/13/20 16:34 Code Status [Resuscitation Status] Routine 04/13/20 16:42 CULTURE URINE [RM] Stat 04/14/20 08:45 Calcium Carbonate/Vitamin D3 [Caltrate 600+D 1500 MG-400 Units] 1 tab PO DAILY Ferrous Sulfate 325 mg PO DAILY Insulin Glarg,Human.Rec.Analog [LantUS Solostar] 20 units SUBCUT BID Leflunomide [Arava] 10 mg PO DAILY Metoprolol Tartrate [Lopressor] 50 mg PO BID QUEtiapine [SEROquel] 100 mg PO DAILY Rifaximin [Xifaxan] 550 mg PO BID buPROPion [Wellbutrin XL] 300 mg PO DAILY lisinopriL [Prinivil] 40 mg PO DAILY predniSONE 5 mg PO DAILY 04/14/20 08:57 CULTURE MRSA SURVEY [RM] Routine 04/14/20 09:00 Multivitamins w-Iron/Ca/FA/Min [Thera M Plus] 1 tab PO DAILY Nystatin [Nystop] 0 gm TOP BID 04/14/20 17:00 Pantoprazole [ProTONIX] 40 mg PO BIDMEALS 04/14/20 20:00 Gabapentin [Neurontin] 1,200 mg PO QPM QUEtiapine [SEROqueL] 200 mg PO BEDTIME allopurinoL [Zyloprim] 150 mg PO QPM 04/15/20 08:00 Non-Formulary Medication [NF Drug] 0 each PO DAILY allopurinoL [Zyloprim] 300 mg PO DAILY - Assessment Assessment:: Myles Bridges Hospitalist CONSULTATION NOTE: eHospitalist was contacted by Jenny Torres NP with request of consultation for admission support. Reason for consult: Unwitnessed fall, MARGARITA HPI: Patient is a 64-year-old male with pmh of HTN, DM, CAD s/p CABG X4 (Oct 2016) who was brought to the ED via EMS after neighbors found him on the floor. Patient is a poor historian. No family at bedside. Per ED provider, patient had an unwitnessed fall last night and had laid on the floor all night. Neighbors found him on the floor and called EMS. Vital stable when EMS found him. Patient reports that he had a fall either last night or the night before, he cannot recall when. Says this is not new for him and that it has happened before. He says his legs gave out underneath him. Says he lives alone and picks up his meals, there is a lady at his apartment building who comes in to check on him frequently. Says he only recalls some details about his fall. Says he fell on his left side, hit his head and then blacked out. Says he does not drink alcohol, last drink was several years ago. Denies history of seizures but says he felt like he had a seizure. Denies loss of bowel or bladder continence. Denies any headaches or dizziness, blurry vision, chest pain or palpitations prior to the fall. Denies any fevers or chills, chest pain or shortness of breath, headaches or dizziness, abdominal pain, nausea or vomiting, constipation or diarrhea, numbness or tingling, focal weakness. Work-up in the ED: -CBC with no leukocytosis, hemoglobin at baseline (9.6), platelets normal -Sodium 134, potassium, chloride and bicarb normal, BUN elevated 67, creatinine 2.8 (from baseline 1.4), -LFTs elevated-T bili 2.7, AST 47, ALT 33, alk phos 234, ammonia 45 -D-dimer 2480 -Head CT with no acute intracranial abnormalities -CXR with no consolidation, pleural effusion, pneumothorax -Left shoulder x-ray with no evidence of fracture or subluxation per my read. -I am unable to view the EKG on EMR, per ED provider shows sinus rhythm with first-degree AV block. No ischemic ranges. Home Medications: Rifaximin, lamictal, bupropion, allopurinol, Gabapentin 1200 qpm, levemir 20 units BID, novolog SSI with meals, MVT, seroquel 100 BID, Lisinopril 40 mg daily, leflunomide 10 mg daily, lopressor 50 BID, protonix 40 bid, Pertinent Medical History: HTN, DM, CAD s/p CABG X4 (Oct 2016), peripheral neuropathy Pertinent Social History: Does not drink, former smoker, quit 4 years ago, lives alone Exam (performed via interactive video with assistance of bedside nurse): General: Awake alert, cooperative, does not appear to be in any acute distress HEENT: Oral mucosa slightly dry Lungs: Clear to auscultation bilaterally CV: Regular rate and rhythm, no murmurs rubs or gallops Abd: Bowel sounds present, nondistended Ext: No pitting edema Skin: Multiple bruises on upper and lower extremities at different stages of healing. Neuro: Awake alert, oriented to self. Moving all extremities. Demonstrates good motor strength in bilateral upper and lower extremities per evaluation by bedside nurse follows on camera. No facial drooping. Good hand eye coronation. Assessment and Plan: Patient is a 64-year-old male with pmh of HTN, IDDM, CAD s/p CABG X4 who was brought in after an unwitnessed fall at home. Poor historian and is unable to recall some details but says he believes it is from his legs giving out. #Unwitnessed fall #Syncope Vitals reviewed, stable. -Obtain EtOH level, UDS, UA, coags, troponin -Obtain orthostatic vital signs. -Less likely seizure but would monitor closely. Less likely cardiac etiology or stroke. #MARGARITA on CKD Likely prerenal from decreased p.o. intake. Was given 1 L IV fluids in the ED. -We will continue with maintenance fluids at 100 cc an hour X 10 hours. -Obtain repeat BMP and reevaluate volume status in a.m. #Insulin-dependent diabetes -Hold long-acting insulin. -Placed on sliding scale insulin Other chronic medical conditions: Hold antihypertensives, home meds need to be reconciled and restarted Carb controlled diet DVT prophylaxis: SCDs, heparin SQ GI Px: restart protonix once meds reconciled Thank you for including Myles Bridges Hospitalist in the patients care. This service is available for further assistance as requested by your care team by calling [phone]. - Plan Plan:: Continue to monitor vital s Continue antibiotic start ambulating the patient start PT/OT social consult for placement
[2020-04-14] MEDS: Pantoprazole 40 MG Tab.CR PO SCH (17:32)
[2020-04-14] MEDS: Gabapentin 600 MG Tab PO SCH (19:40)
[2020-04-14] MEDS ORDERED: QUEtiapine Fumarate 200 MG TABLET PO ONE (19:45)
[2020-04-14] MEDS: cefTRIAXone 1 GM in Sodium Chloride 0.9% 50 ML IV SCH (19:45)
[2020-04-14] MEDS: Allopurinol 300 MG Tab PO SCH (20:29)
[2020-04-15] MEDS: Heparin Sodium 5,000 Units/ML Vial SUBCUT SCH ×3 (01:55→17:19)
[2020-04-15] MEDS: Lactated Ringers 1,000 ML IV SCH ×2 (01:56→13:15)
[2020-04-15] MEDS: Multivitamins with Iron/Calcium/Folic Acid/Minerals Tab PO SCH (07:53)
[2020-04-15] MEDS: Calcium Carbonate/Vitamin D3 1500 MG-400 Units Tab PO SCH (07:53)
[2020-04-15] MEDS: Rifaximin 550 MG Tab PO SCH ×2 (07:53→19:55)
[2020-04-15] MEDS: buPROPion 300 MG Tab.ER PO SCH (07:53)
[2020-04-15] MEDS: Pantoprazole 40 MG Tab.CR PO SCH ×2 (07:53→17:18)
[2020-04-15] MEDS: predniSONE 5 MG Tab PO SCH (07:53)
[2020-04-15] MEDS: Ferrous Sulfate 325 MG Tab PO SCH (07:53)
[2020-04-15] MEDS: Metoprolol Tartrate 50 MG Tab PO SCH ×2 (07:54→20:00)
[2020-04-15] MEDS: Allopurinol 300 MG Tab PO SCH ×2 (07:56→20:01)
[2020-04-15] MEDS: Insulin Glargine,Human Rec. Analog 100 Units/ML 3 ML Pen SUBCUT SCH ×2 (08:12→20:41)
[2020-04-15] MEDS: Insulin Lispro 100 Unit/ML 3 ML KwikPen SUBCUT SCH ×4 (08:13→20:42)
[2020-04-15] MEDS: Nystatin Topical Powder 15 GM Bottle TOP SCH ×2 (08:17→19:55)
[2020-04-15] MEDS: Leflunomide 20 MG Tab PO SCH (08:24)
[2020-04-15] MEDS: LAMICTAL 100 MG PO SCH (08:25)
--- NOTE | 2020-04-15 10:10 | CR ---
DATE OF SERVICE: 04/13/2020 CLINICAL DATA: Shoulder Pain LEFT SHOULDER: There is diffuse osteopenia. There are osteoarthritic changes of the AC and glenohumeral joints. There is narrowing of the subacromial space consistent with chronic rotator cuff tendon injury. MRI scan may be helpful. No acute abnormalities. No lytic or blastic bone lesions. [id number]
--- NOTE | 2020-04-15 10:17 | CR ---
Date of Service: 04/13/20 Clinical Data: SOB PORTABLE CHEST: The patient has taken a poor inspiration and is in an apical lordotic position. Comparison is made to a prior exam dated 03/22/19. The heart remains enlarged. It has decreased in size from the prior study. The pulmonary vascular congestion on the prior exam has improved radiographically. The lungs appear clear. No pneumothorax. No pleural effusion. The exam is otherwise unchanged from the prior. [id number] [facility]
--- NOTE | 2020-04-15 12:24 | PCM.PN ---
- General Info Date of Service: 04/15/20 Subjective Update: patient is seen to day on daily round . He is feeling better , There was rash on groin area -cleaned & nystatin The patient was not able to sleep during last night labs reviewed - The patient is taking oral food & drinks He took a bath- feeling better -walking with walker . NO temperature, NO confusion put consult for social sciences department chair for discharge planning ON antibiotic for UTI . denies any fever ,N/V ,chest pain ,headache Or dizziness - Review of Systems General: Reports: No Symptoms HEENT: Reports: No Symptoms Pulmonary: Reports: No Symptoms Cardiovascular: Reports: No Symptoms Gastrointestinal: Reports: No Symptoms Genitourinary: Reports: No Symptoms Musculoskeletal: Reports: No Symptoms Skin: Reports: No Symptoms Neurological: Reports: No Symptoms Psychiatric: Reports: No Symptoms - Patient Data Vitals - Most Recent: Last Vital Signs Temp 97.4 F 04/15/20 09:00 Pulse 71 04/15/20 09:00 Resp 18 04/15/20 09:00 BP 164/91 H 04/15/20 09:00 Pulse Ox 100 04/15/20 09:00 Weight - Most Recent: 259 lb 6.4 oz I&O - Last 24 Hours: Intake & Output 04/14/20 04/15/20 04/15/20 22:59 06:59 14:59 Intake Total 1920 4450 Output Total 1000 1200 Balance 920 3250 Lab Results Last 24 Hours: Laboratory Results - last 24 hr 04/14/20 04/14/20 04/15/20 Range/Units 16:20 18:58 07:03 POC Glucose 181 H 200 H 120 H (74-110) mg/dL 04/15/20 Range/Units 10:57 POC Glucose 211 H (74-110) mg/dL Abran Results Last 24 Hours: Microbiology 04/13/20 16:42 Urine Culture - Final Urine, Voided Klebsiella Pneumoniae 04/14/20 08:57 MRSA Surveillance Culture - Final Nasal, Left NO MRSA ISOLATED Med Orders - Current: Current Medications Acetaminophen (Tylenol) 650 mg PO Q4H PRN PRN Reason: Pain (Mild 1-3)/fever Last Admin: 04/13/20 22:36 Dose: 650 mg Documented by: Allopurinol (Zyloprim) 150 mg PO QPM ADAIR Last Admin: 04/14/20 20:29 Dose: 150 mg Documented by: Allopurinol (Zyloprim) 300 mg PO DAILY ON LICENSE OF [facility] Last Admin: 04/15/20 07:56 Dose: 300 mg Documented by: Bupropion HCl (Wellbutrin Xl) 300 mg PO DAILY ON LICENSE OF [facility] Last Admin: 04/15/20 07:53 Dose: 300 mg Documented by: Calcium Carbonate (Caltrate 600+D 1500 Mg-400 Units) 1 tab PO DAILY ON LICENSE OF [facility] Last Admin: 04/15/20 07:53 Dose: 1 tab Documented by: Dextrose/Water (Dextrose 50% In Water) 50 ml IVPUSH ASDIRECTED PRN PRN Reason: Hypoglycemia Ferrous Sulfate (Ferrous Sulfate) 325 mg PO DAILY ON LICENSE OF [facility] Last Admin: 04/15/20 07:53 Dose: 325 mg Documented by: Gabapentin (Neurontin) 1,200 mg PO QPM ON LICENSE OF [facility] Last Admin: 04/14/20 19:40 Dose: 1,200 mg Documented by: Glucagon (Glucagen) 1 mg IM ASDIRECTED PRN PRN Reason: Hypoglycemia Heparin Sodium (Porcine) (Heparin Sodium) 5,000 units SUBCUT Q8H ON LICENSE OF [facility] Last Admin: 04/15/20 01:55 Dose: 5,000 units Documented by: Lactated Ringer's (Ringers, Lactated) 1,000 mls @ 100 mls/hr IV ASDIRECTED ON LICENSE OF [facility] Last Admin: 04/15/20 01:56 Dose: 100 mls/hr Documented by: Ceftriaxone Sodium 1 gm/ (Sodium Chloride) 50 mls @ 100 mls/hr IV Q24H ON LICENSE OF [facility] Stop: 04/15/20 20:00 Last Admin: 04/14/20 19:45 Dose: 100 mls/hr Documented by: Insulin Glargine (Lantus Solostar) 20 units SUBCUT BID ON LICENSE OF [facility] Last Admin: 04/15/20 08:12 Dose: 20 units Documented by: Insulin Human Lispro (Humalog) 0 unit SUBCUT QIDACANDBED ON LICENSE OF [facility] Last Admin: 04/15/20 08:13 Dose: Not Given Documented by: Leflunomide (Arava) 10 mg PO DAILY ON LICENSE OF [facility] Last Admin: 04/15/20 08:24 Dose: Not Given Documented by: Lisinopril (Prinivil) 40 mg PO DAILY ON LICENSE OF [facility] Last Admin: 04/15/20 07:53 Dose: 40 mg Documented by: Metoprolol Tartrate (Lopressor) 50 mg PO BID ON LICENSE OF [facility] Last Admin: 04/15/20 07:54 Dose: 50 mg Documented by: Multivitamins/Minerals (Thera M Plus) 1 tab PO DAILY ON LICENSE OF [facility] Last Admin: 04/15/20 07:53 Dose: 1 tab Documented by: Lamictal 100 Mg Tabs (*Non-Formulary Med*) 0 each PO DAILY ON LICENSE OF [facility] Last Admin: 04/15/20 08:25 Dose: Not Given Documented by: Nystatin (Nystop) 0 gm TOP BID ON LICENSE OF [facility] Last Admin: 04/15/20 08:17 Dose: 1 applic Documented by: Ondansetron HCl (Zofran) 4 mg IV Q4H PRN PRN Reason: Nausea/Vomiting Pantoprazole Sodium (Protonix) 40 mg PO BIDWIALS ON LICENSE OF [facility] Last Admin: 04/15/20 07:53 Dose: 40 mg Documented by: Prednisone (Prednisone) 5 mg PO DAILY ON LICENSE OF [facility] Last Admin: 04/15/20 07:53 Dose: 5 mg Documented by: Quetiapine Fumarate (Seroquel) 200 mg PO BEDTIME ON LICENSE OF [facility] Last Admin: 04/14/20 19:45 Dose: 200 mg Documented by: Quetiapine Fumarate (Seroquel) 100 mg PO DAILY ON LICENSE OF [facility] Last Admin: 04/15/20 07:54 Dose: 100 mg Documented by: Rifaximin (Xifaxan) 550 mg PO BID ON LICENSE OF [facility] Last Admin: 04/15/20 07:53 Dose: 550 mg Documented by: Discontinued Medications Sodium Chloride (Normal Saline) 500 mls @ 999 mls/hr IV .BOLUS ONE Stop: 04/13/20 14:34 Last Admin: 04/13/20 14:25 Dose: 999 mls/hr Documented by: Insulin Aspart (Novolog) 0 unit SUBCUT TIDMEALS ON LICENSE OF [facility]; Protocol Lamotrigine (Lamictal) 150 mg PO DAILY ON LICENSE OF [facility] Last Admin: 04/14/20 09:28 Dose: 150 mg Documented by: Lamotrigine (Lamotrigine) 50 mg PO DAILY ON LICENSE OF [facility] Last Admin: 04/14/20 09:28 Dose: 50 mg Documented by: Oxycodone HCl (Oxycodone) 5 mg PO Q4H PRN PRN Reason: Pain (moderate 4-6) Last Admin: 04/13/20 22:34 Dose: 5 mg Documented by: Quetiapine Fumarate (Quetiapine Fumarate) Confirm Administered Dose 200 mg PO .STK-MED ONE Stop: 04/14/20 19:46 Last Admin: 04/14/20 19:52 Dose: Not Given Documented by: - Exam Quality Assessment: Skin Breakdown General: Alert, Oriented Neck: Supple Lungs: Clear to Auscultation, Normal Respiratory Effort Cardiovascular: Regular Rate, Regular Rhythm GI/Abdominal Exam: Normal Bowel Sounds, Soft, Non-Tender, No Organomegaly, No Distention, No Abnormal Bruit, No Mass, Pelvis Stable (Male) Exam: Other (rash on groin area looking better ) Sepsis Event Note - Evaluation Sepsis Screening Result: No Definite Risk - Focused Exam Vital Signs: Vital Signs Temp Temp Pulse Pulse Resp BP BP 04/15/20 09:00 97.4 F 71 18 164/91 H 04/15/20 07:54 71 164/91 H 04/15/20 04:48 98 F 98.6 F 75 16 128/76 04/15/20 01:00 98.4 F 69 16 140/66 Pulse Ox 04/15/20 09:00 100 04/15/20 07:54 04/15/20 04:48 99 04/15/20 01:00 99 - Problem List & Annotations (1) Acute kidney injury SNOMED Code(s): 44446344, 17817594 Code(s): N17.9 - ACUTE KIDNEY FAILURE, UNSPECIFIED Status: Acute Priority: Medium Current Visit: Yes Onset Date: ~04/13/20 (2) UTI (urinary tract infection) SNOMED Code(s): 37723444 Code(s): N39.0 - URINARY TRACT INFECTION, SITE NOT SPECIFIED Status: Acute Priority: Medium Current Visit: Yes Qualifiers: Encounter type: initial encounter (3) Fungal infection of the groin SNOMED Code(s): 902608349 Code(s): B35.6 - TINEA CRURIS Status: Acute Current Visit: Yes Onset Date: ~04/12/20 Annotation/Comment:: Clean the area & Nystatin applied - Problem List Review Problem List Initiated/Reviewed/Updated: Yes - My Orders Last 24 Hours: My Active Orders 04/14/20 12:53 Consult to Case Management/Chief Engineer Research [CONS] Routine 04/14/20 17:00 Pantoprazole [ProTONIX] 40 mg PO BIDMEALS 04/14/20 20:00 Gabapentin [Neurontin] 1,200 mg PO QPM QUEtiapine [SEROqueL] 200 mg PO BEDTIME allopurinoL [Zyloprim] 150 mg PO QPM 04/15/20 08:00 Non-Formulary Medication [NF Drug] 0 each PO DAILY allopurinoL [Zyloprim] 300 mg PO DAILY 04/15/20 12:11 COMPREHENSIVE METABOLIC PN,CMP [CHEM] Routine 04/16/20 08:00 CBC WITH AUTO DIFF [HEME] Routine COMPREHENSIVE METABOLIC PN,CMP [CHEM] Routine 04/16/20 12:11 AMMONIA VENOUS [CHEM] Routine - Assessment Assessment:: Myles Bridges Hospitalist CONSULTATION NOTE: eHospitalist was contacted by Jenny Torres NP with request of consultation for admission support. Reason for consult: Unwitnessed fall, MARGARITA HPI: Patient is a 64-year-old male with pmh of HTN, DM, CAD s/p CABG X4 (Oct 2016) who was brought to the ED via EMS after neighbors found him on the floor. Patient is a poor historian. No family at bedside. Per ED provider, patient had an unwitnessed fall last night and had laid on the floor all night. Neighbors found him on the floor and called EMS. Vital stable when EMS found him. Patient reports that he had a fall either last night or the night before, he cannot recall when. Says this is not new for him and that it has happened before. He says his legs gave out underneath him. Says he lives alone and picks up his meals, there is a lady at his apartment building who comes in to check on him frequently. Says he only recalls some details about his fall. Says he fell on his left side, hit his head and then blacked out. Says he does not drink alcohol, last drink was several years ago. Denies history of seizures but says he felt like he had a seizure. Denies loss of bowel or bladder continence. Denies any headaches or dizziness, blurry vision, chest pain or pal pitations prior to the fall. Denies any fevers or chills, chest pain or shortness of breath, headaches or dizziness, abdominal pain, nausea or vomiting, constipation or diarrhea, numbness or tingling, focal weakness. Work-up in the ED: -CBC with no leukocytosis, hemoglobin at baseline (9.6), platelets normal -Sodium 134, potassium, chloride and bicarb normal, BUN elevated 67, creatinine 2.8 (from baseline 1.4), -LFTs elevated-T bili 2.7, AST 47, ALT 33, alk phos 234, ammonia 45 -D-dimer 2480 -Head CT with no acute intracranial abnormalities -CXR with no consolidation, pleural effusion, pneumothorax -Left shoulder x-ray with no evidence of fracture or subluxation per my read. -I am unable to view the EKG on EMR, per ED provider shows sinus rhythm with first-degree AV block. No ischemic ranges. Home Medications: Rifaximin, lamictal, bupropion, allopurinol, Gabapentin 1200 qpm, levemir 20 units BID, novolog SSI with meals, MVT, seroquel 100 BID, Lisinopril 40 mg daily, leflunomide 10 mg daily, lopressor 50 BID, protonix 40 bid, Pertinent Medical History: HTN, DM, CAD s/p CABG X4 (Oct 2016), peripheral neuropathy Pertinent Social History: Does not drink, former smoker, quit 4 years ago, lives alone Exam (performed via interactive video with assistance of bedside nurse): General: Awake alert, cooperative, does not appear to be in any acute distress HEENT: Oral mucosa slightly dry Lungs: Clear to auscultation bilaterally CV: Regular rate and rhythm, no murmurs rubs or gallops Abd: Bowel sounds present, nondistended Ext: No pitting edema Skin: Multiple bruises on upper and lower extremities at different stages of healing. Neuro: Awake alert, oriented to self. Moving all extremities. Demonstrates good motor strength in bilateral upper and lower extremities per evaluation by bedside nurse follows on camera. No facial drooping. Good hand eye coronation. Assessment and Plan: Patient is a 64-year-old male with pmh of HTN, IDDM, CAD s/p CABG X4 who was brought in after an unwitnessed fall at home. Poor historian and is unable to recall some details but says he believes it is from his legs giving out. #Unwitnessed fall #Syncope Vitals reviewed, stable. -Obtain EtOH level, UDS, UA, coags, troponin -Obtain orthostatic vital signs. -Less likely seizure but would monitor closely. Less likely cardiac etiology or stroke. #MARGARITA on CKD Likely prerenal from decreased p.o. intake. Was given 1 L IV fluids in the ED. -We will continue with maintenance fluids at 100 cc an hour X 10 hours. -Obtain repeat BMP and reevaluate volume status in a.m. #Insulin-dependent diabetes -Hold long-acting insulin. -Placed on sliding scale insulin Other chronic medical conditions: Hold antihypertensives, home meds need to be reconciled and restarted Carb controlled diet DVT prophylaxis: SCDs, heparin SQ GI Px: restart protonix once meds reconciled Thank you for including Myles Bridges Hospitalist in the patients care. This service is available for further assistance as requested by your care team by calling [phone]. - Plan Plan:: Continue to monitor vital s Continue antibiotic start ambulating the patient start PT/OT social consult for placement
[2020-04-15] MEDS: cefTRIAXone 1 GM in Sodium Chloride 0.9% 50 ML IV SCH (19:52)
[2020-04-15] MEDS: Gabapentin 600 MG Tab PO SCH (19:55)
[2020-04-15] MEDS ORDERED: QUEtiapine Fumarate 200 MG TABLET PO ONE (20:00)
[2020-04-15] MEDS ORDERED: Melatonin 3 MG Tab PO PRN (20:03)
[2020-04-16] MEDS: Heparin Sodium 5,000 Units/ML Vial SUBCUT SCH ×2 (01:37→12:38)
[2020-04-16] MEDS: Lactated Ringers 1,000 ML IV SCH ×2 (01:38→09:00)
[2020-04-16] MEDS ORDERED: Bacitracin/Neomycin/Polymyxin B Oint 0.9 GM U/D Packet ONE (08:00)
[2020-04-16] MEDS: Allopurinol 300 MG Tab PO SCH (08:05)
[2020-04-16] MEDS: buPROPion 300 MG Tab.ER PO SCH (08:05)
[2020-04-16] MEDS: Metoprolol Tartrate 50 MG Tab PO SCH (08:06)
[2020-04-16] MEDS: Calcium Carbonate/Vitamin D3 1500 MG-400 Units Tab PO SCH (08:06)
[2020-04-16] MEDS: Multivitamins with Iron/Calcium/Folic Acid/Minerals Tab PO SCH (08:06)
[2020-04-16] MEDS: Rifaximin 550 MG Tab PO SCH (08:06)
[2020-04-16] MEDS: predniSONE 5 MG Tab PO SCH (08:06)
[2020-04-16] MEDS: Pantoprazole 40 MG Tab.CR PO SCH (08:06)
[2020-04-16] MEDS: Ferrous Sulfate 325 MG Tab PO SCH (08:06)
[2020-04-16] MEDS: Nystatin Topical Powder 15 GM Bottle TOP SCH (08:09)
[2020-04-16 08:17] VITALS: BP 119/69; PULSE 60
[2020-04-16] MEDS: Insulin Lispro 100 Unit/ML 3 ML KwikPen SUBCUT SCH ×2 (08:17→12:13)
[2020-04-16] MEDS: Leflunomide 20 MG Tab PO SCH (08:38)
[2020-04-16] MEDS: LAMICTAL 100 MG PO SCH (08:48)
[2020-04-16] MEDS: Insulin Glargine,Human Rec. Analog 100 Units/ML 3 ML Pen SUBCUT SCH (08:48)
--- NOTE | 2020-04-16 15:05 | PCM.PN ---
- General Info Date of Service: 04/16/20 Admission Dx/Problem (Free Text): Acute kidney injury UTI AMS High risk of Fall AMS Subjective Update: The patient is felling better - No complain to day denies any fever,N/V ,chest pain ,cough ,headache no abdominal pain Functional Status: Reports: Other (unsteady gait -risk of fall most liky -spoke with PT for rehablitation but patient denied Left agains medical advice ) - Review of Systems General: Reports: Weakness (unstady gait ) HEENT: Reports: No Symptoms Pulmonary: Reports: Shortness of Breath Cardiovascular: Reports: No Symptoms, Edema, Other Gastrointestinal: Reports: No Symptoms Genitourinary: Reports: Other (fungal infection of groin ) Neurological: Reports: Difficulty Walking, Gait Disturbance - Patient Data Vitals - Most Recent: Last Vital Signs Temp 99 F 04/16/20 05:00 Pulse 60 04/16/20 08:37 Resp 16 04/16/20 08:37 BP 119/69 04/16/20 08:37 Pulse Ox 99 04/16/20 08:37 Weight - Most Recent: 250 lb I&O - Last 24 Hours: Intake & Output 04/15/20 04/16/20 04/16/20 22:59 06:59 14:59 Intake Total 1380 1750 Output Total 950 1500 Balance 430 250 Lab Results Last 24 Hours: Laboratory Results - last 24 hr 04/15/20 04/15/20 04/16/20 Range/Units 15:43 19:36 08:20 WBC (4.0-11.0) K/uL RBC (4.50-6.50) M/uL Hgb (13.0-18.0) g/dL Hct (40.0-54.0) % MCV (76-96) fL MCH (27.0-32.0) pg MCHC (31.0-35.0) g/dL RDW (11.0-16.0) % Plt Count (150-400) K/uL MPV (6.0-10.0) fL Neut % (Auto) (45.0-70.0) % Lymph % (Auto) (20.0-40.0) % [place] % (Auto) (3.0-10.0) % Eos % (Auto) (1.0-5.0) % Baso % (Auto) (0.0-0.5) % Neut # (Auto) (2.00-7.50) K/uL Lymph # (Auto) (1.50-4.00) K/uL [place] # (Auto) (0.20-0.80) K/uL Eos # (Auto) (0.04-0.40) K/uL Baso # (Auto) (0.02-0.10) K/uL Sodium (136-145) mmol/L Potassium (3.5-5.1) mmol/L Chloride (98-107) mmol/L Carbon Dioxide (21.0-32.0) mmol/L Anion Gap (5.0-15.0) mmol/L BUN (8-26) mg/dL Creatinine (0.70-1.30) mg/dL Est Cr Clr Drug Dosing mL/min Estimated GFR (MDRD) (>60) MLS/MIN BUN/Creatinine Ratio (6-25) Glucose (74-100) mg/dL POC Glucose 190 H 185 H (74-110) mg/dL Calcium (8.5-10.1) mg/dL Total Bilirubin (0.0-1.0) mg/dL AST (15-37) U/L ALT (12-78) U/L Alkaline Phosphatase (46-116) U/L Ammonia 44 H (11-32) umol/L Total Protein (6.4-8.2) g/dL Albumin (3.4-5.0) g/dL Globulin (2.2-4.2) g/dL Albumin/Globulin Ratio (0.8-2.0) 04/16/20 04/16/20 Range/Units 08:20 08:20 WBC 5.7 D (4.0-11.0) K/uL RBC 3.04 L (4.50-6.50) M/uL Hgb 8.6 L (13.0-18.0) g/dL Hct 28.4 L (40.0-54.0) % MCV 93 (76-96) fL MCH 28.3 (27.0-32.0) pg MCHC 30.3 L (31.0-35.0) g/dL RDW 20.2 H (11.0-16.0) % Plt Count 90 L D (150-400) K/uL MPV 11.7 H (6.0-10.0) fL Neut % (Auto) 71.7 H (45.0-70.0) % Lymph % (Auto) 12.9 L (20.0-40.0) % [place] % (Auto) 9.1 (3.0-10.0) % Eos % (Auto) 5.6 H (1.0-5.0) % Baso % (Auto) 0.7 H (0.0-0.5) % Neut # (Auto) 4.10 (2.00-7.50) K/uL Lymph # (Auto) 0.74 L (1.50-4.00) K/uL [place] # (Auto) 0.52 (0.20-0.80) K/uL Eos # (Auto) 0.32 (0.04-0.40) K/uL Baso # (Auto) 0.04 (0.02-0.10) K/uL Sodium 140 (136-145) mmol/L Potassium 4.0 (3.5-5.1) mmol/L Chloride 103 (98-107) mmol/L Carbon Dioxide 28.6 (21.0-32.0) mmol/L Anion Gap 12.4 (5.0-15.0) mmol/L BUN 29 H (8-26) mg/dL Creatinine 1.40 H (0.70-1.30) mg/dL Est Cr Clr Drug Dosing 56.97 mL/min Estimated GFR (MDRD) 51 L (>60) MLS/MIN BUN/Creatinine Ratio 20.7 (6-25) Glucose 125 H D (74-100) mg/dL POC Glucose (74-110) mg/dL Calcium 8.7 (8.5-10.1) mg/dL Total Bilirubin 1.4 H D (0.0-1.0) mg/dL AST 41 H (15-37) U/L ALT 29 (12-78) U/L Alkaline Phosphatase 243 H (46-116) U/L Ammonia (11-32) umol/L Total Protein 7.4 (6.4-8.2) g/dL Albumin 2.9 L (3.4-5.0) g/dL Globulin 4.5 H (2.2-4.2) g/dL Albumin/Globulin Ratio 0.6 L (0.8-2.0) Abran Results Last 24 Hours: Microbiology 04/13/20 16:42 Urine Culture - Final Urine, Voided Klebsiella Pneumoniae 04/14/20 08:57 MRSA Surveillance Culture - Final Nasal, Left NO MRSA ISOLATED Med Orders - Current: Current Medications Acetaminophen (Tylenol) 650 mg PO Q4H PRN PRN Reason: Pain (Mild 1-3)/fever Last Admin: 04/13/20 22:36 Dose: 650 mg Documented by: Allopurinol (Zyloprim) 150 mg PO QPM [facility] Last Admin: 04/15/20 20:01 Dose: 150 mg Documented by: Allopurinol (Zyloprim) 300 mg PO DAILY [facility] Last Admin: 04/16/20 08:05 Dose: 300 mg Documented by: Bupropion HCl (Wellbutrin Xl) 300 mg PO DAILY [facility] Last Admin: 04/16/20 08:05 Dose: 300 mg Documented by: Calcium Carbonate (Caltrate 600+D 1500 Mg-400 Units) 1 tab PO DAILY [facility] Last Admin: 04/16/20 08:06 Dose: 1 tab Documented by: Dextrose/Water (Dextrose 50% In Water) 50 ml IVPUSH ASDIRECTED PRN PRN Reason: Hypoglycemia Ferrous Sulfate (Ferrous Sulfate) 325 mg PO DAILY [facility] Last Admin: 04/16/20 08:06 Dose: 325 mg Documented by: Gabapentin (Neurontin) 1,200 mg PO QPM [facility] Last Admin: 04/15/20 19:55 Dose: 1,200 mg Documented by: Glucagon (Glucagen) 1 mg IM ASDIRECTED PRN PRN Reason: Hypoglycemia Heparin Sodium (Porcine) (Heparin Sodium) 5,000 units SUBCUT Q8H [facility] Last Admin: 04/16/20 12:38 Dose: Not Given Documented by: Lactated Ringer's (Ringers, Lactated) 1,000 mls @ 50 mls/hr IV ASDIRECTED [facility] Last Admin: 04/16/20 09:00 Dose: 50 mls/hr Documented by: Insulin Glargine (Lantus Solostar) 20 units SUBCUT BID [facility] Last Admin: 04/16/20 08:48 Dose: 20 units Documented by: Insulin Human Lispro (Humalog) 0 unit SUBCUT QIDACANDBED [facility] Last Admin: 04/16/20 12:13 Dose: 4 units Documented by: Leflunomide (Arava) 10 mg PO DAILY [facility] Last Admin: 04/16/20 08:38 Dose: Not Given Documented by: Lisinopril (Prinivil) 40 mg PO DAILY [facility] Last Admin: 04/16/20 08:05 Dose: 40 mg Documented by: Melatonin (Melatonin) 3 mg PO BEDTIME PRN PRN Reason: Sleep Metoprolol Tartrate (Lopressor) 50 mg PO BID [facility] Last Admin: 04/16/20 08:06 Dose: 50 mg Documented by: Multivitamins/Minerals (Thera M Plus) 1 tab PO DAILY [facility] Last Admin: 04/16/20 08:06 Dose: 1 tab Documented by: Lamictal 100 Mg Tabs (*Non-Formulary Med*) 0 each PO DAILY [facility] Last Admin: 04/16/20 08:48 Dose: 200 each Documented by: Nystatin (Nystop) 0 gm TOP BID [facility] Last Admin: 04/16/20 08:09 Dose: 1 applic Documented by: Ondansetron HCl (Zofran) 4 mg IV Q4H PRN PRN Reason: Nausea/Vomiting Pantoprazole Sodium (Protonix) 40 mg PO BIDMEALS [facility] Last Admin: 04/16/20 08:06 Dose: 40 mg Documented by: Prednisone (Prednisone) 5 mg PO DAILY [facility] Last Admin: 04/16/20 08:06 Dose: 5 mg Documented by: Quetiapine Fumarate (Seroquel) 200 mg PO BEDTIME [facility] Last Admin: 04/15/20 20:00 Dose: 200 mg Documented by: Quetiapine Fumarate (Seroquel) 100 mg PO DAILY [facility] Last Admin: 04/16/20 08:06 Dose: 100 mg Documented by: Rifaximin (Xifaxan) 550 mg PO BID [facility] Last Admin: 04/16/20 08:06 Dose: 550 mg Documented by: Discontinued Medications Sodium Chloride (Normal Saline) 500 mls @ 999 mls/hr IV .BOLUS ONE Stop: 04/13/20 14:34 Last Admin: 04/13/20 14:25 Dose: 999 mls/hr Documented by: Ceftriaxone Sodium 1 gm/ (Sodium Chloride) 50 mls @ 100 mls/hr IV Q24H [facility] Stop: 04/15/20 20:00 Last Admin: 04/15/20 19:52 Dose: 100 mls/hr Documented by: Insulin Aspart (Novolog) 0 unit SUBCUT TIDMEALS [facility]; Protocol Lamotrigine (Lamictal) 150 mg PO DAILY [facility] Last Admin: 04/14/20 09:28 Dose: 150 mg Documented by: Lamotrigine (Lamotrigine) 50 mg PO DAILY [facility] Last Admin: 04/14/20 09:28 Dose: 50 mg Documented by: Neomycin/Polymyxin/Bacitracin (Triple Antibiotic Oint) Confirm Administered Dose 1 each .ROUTE .STK-MED ONE Stop: 04/16/20 08:01 Last Admin: 04/16/20 11:34 Dose: Not Given Documented by: Oxycodone HCl (Oxycodone) 5 mg PO Q4H PRN PRN Reason: Pain (moderate 4-6) Last Admin: 04/13/20 22:34 Dose: 5 mg Documented by: Quetiapine Fumarate (Quetiapine Fumarate) Confirm Administered Dose 200 mg PO .STK-MED ONE Stop: 04/14/20 19:46 Last Admin: 04/14/20 19:52 Dose: Not Given Documented by: Quetiapine Fumarate (Quetiapine Fumarate) Confirm Administered Dose 200 mg PO .STK-MED ONE Stop: 04/15/20 20:01 Last Admin: 04/15/20 20:05 Dose: Not Given Documented by: - Exam General: Oriented Neck: Supple Lungs: Clear to Auscultation, Normal Respiratory Effort GI/Abdominal Exam: Normal Bowel Sounds, Soft, Non-Tender, No Organomegaly, No Distention, No Abnormal Bruit, No Mass (Male) Exam: Other (mild redness on groin ) Skin: Rash (groin area -apply nystatin ) Sepsis Event Note - Evaluation Sepsis Screening Result: No Definite Risk - Focused Exam Vital Signs: Vital Signs Temp Pulse Pulse Resp BP BP Pulse Ox 04/16/20 08:37 60 16 119/69 99 04/16/20 08:06 60 119/69 04/16/20 05:00 99 F 77 16 136/74 100 - Problem List & Annotations (1) Acute kidney injury SNOMED Code(s): 59081073, 72700045 Code(s): N17.9 - ACUTE KIDNEY FAILURE, UNSPECIFIED Status: Acute Priority: Medium Current Visit: Yes Onset Date: ~04/13/20 Annotation/Comment:: keep your good hydrations (2) UTI (urinary tract infection) SNOMED Code(s): 89962828 Code(s): N39.0 - URINARY TRACT INFECTION, SITE NOT SPECIFIED Status: Acute Priority: Medium Current Visit: Yes Onset Date: ~04/13/20 Qualifiers: Encounter type: subsequent encounter (3) Fungal infection of the groin SNOMED Code(s): 343810316 Code(s): B35.6 - TINEA CRURIS Status: Acute Priority: Medium Current Visit: Yes Onset Date: ~04/12/20 Annotation/Comment:: Clean the area & Nystatin applied - Problem List Review Problem List Initiated/Reviewed/Updated: Yes - My Orders Last 24 Hours: My Active Orders 04/16/20 13:09 Ready for Discharge [RC] PER UNIT ROUTINE - Assessment Assessment:: Myles Bridges Hospitalist CONSULTATION NOTE: eHospitalist was contacted by Jenny Torres NP with request of consultation for admission support. Reason for consult: Unwitnessed fall, MARGARITA HPI: Patient is a 64-year-old male with pmh of HTN, DM, CAD s/p CABG X4 (Oct 2016) who was brought to the ED via EMS after neighbors found him on the floor. Patient is a poor historian. No family at bedside. Per ED provider, patient had an unwitnessed fall last night and had laid on the floor all night. Neighbors found him on the floor and called EMS. Vital stable when EMS found him. Patient reports that he had a fall either last night or the night before, he cannot recall when. Says this is not new for him and that it has happened before. He says his legs gave out underneath him. Says he lives alone and picks up his meals, there is a lady at his apartment building who comes in to check on him frequently. Says he only recalls some details about his fall. Says he fell on his left side, hit his head and then blacked out. Says he does not drink alcohol, last drink was several years ago. Denies history of seizures but says he felt like he had a seizure. Denies loss of bowel or bladder continence. Denies any headaches or dizziness, blurry vision, chest pain or palpitations prior to the fall. Denies any fevers or chills, chest pain or shortness of breath, headaches or dizziness, abdominal pain, nausea or vomiting, constipation or diarrhea, numbness or tingling, focal weakness. Work-up in the ED: -CBC with no leukocytosis, hemoglobin at baseline (9.6), platelets normal -Sodium 134, potassium, chloride and bicarb normal, BUN elevated 67, creatinine 2.8 (from baseline 1.4), -LFTs elevated-T bili 2.7, AST 47, ALT 33, alk phos 234, ammonia 45 -D-dimer 2480 -Head CT with no acute intracranial abnormalities -CXR with no consolidation, pleural effusion, pneumothorax -Left shoulder x-ray with no evidence of fracture or subluxation per my read. -I am unable to view the EKG on EMR, per ED provider shows sinus rhythm with first-degree AV block. No ischemic ranges. Home Medications: Rifaximin, lamictal, bupropion, allopurinol, Gabapentin 1200 qpm, levemir 20 units BID, novolog SSI with meals, MVT, seroquel 100 BID, Lisinopril 40 mg daily, leflunomide 10 mg daily, lopressor 50 BID, protonix 40 bid, Pertinent Medical History: HTN, DM, CAD s/p CABG X4 (Oct 2016), peripheral neuropathy Pertinent Social History: Does not drink, former smoker, quit 4 years ago, lives alone Exam (performed via interactive video with assistance of bedside nurse): General: Awake alert, cooperative, does not appear to be in any acute distress HEENT: Oral mucosa slightly dry Lungs: Clear to auscultation bilaterally CV: Regular rate and rhythm, no murmurs rubs or gallops Abd: Bowel sounds present, nondistended Ext: No pitting edema Skin: Multiple bruises on upper and lower extremities at different stages of healing. Neuro: Awake alert, oriented to self. Moving all extremities. Demonstrates good motor strength in bilateral upper and lower extremities per evaluation by bedside nurse follows on camera. No facial drooping. Good hand eye coronation. Assessment and Plan: Patient is a 64-year-old male with pmh of HTN, IDDM, CAD s/p CABG X4 who was brought in after an unwitnessed fall at home. Poor historian and is unable to recall some details but says he believes it is from his legs giving out. #Unwitnessed fall #Syncope Vitals reviewed, stable. -Obtain EtOH level, UDS, UA, coags, troponin -Obtain orthostatic vital signs. -Less likely seizure but would monitor closely. Less likely cardiac etiology or stroke. #MARGARITA on CKD Likely prerenal from decreased p.o. intake. Was given 1 L IV fluids in the ED. -We will continue with maintenance fluids at 100 cc an hour X 10 hours. -Obtain repeat BMP and reevaluate volume status in a.m. #Insulin-dependent diabetes -Hold long-acting insulin. -Placed on sliding scale insulin Other chronic medical conditions: Hold antihypertensives, home meds need to be reconciled and restarted Carb controlled diet DVT prophylaxis: SCDs, heparin SQ GI Px: restart protonix once meds reconciled Thank you for including Myles Bridges Hospitalist in the patients care. This service is available for further assistance as requested by your care team by calling [phone]. - Plan Plan:: Continue to monitor vital s Continue antibiotic start ambulating the patient start PT/OT social consult for placement After discussion with DR Alamo ,community mental health social worker ,& physial therapist, it was decided to keep him him on swing bed for one week & do PT/OT ,But did want to stay any more - His gait was unsteady-we want some rehabilitation before going home BUT the patient denied - we change the antibiotic oral (Ciprofloxin) 500mg pobid for 5 days for UTI The patient left against medical advice
--- NOTE | 2020-04-17 09:14 | PCM.DCSUM1 ---
Discharge Summary - Hospital Course Free Text/Narrative:: The patient is 64 year old male patient known diabetic ,cirrhosis of liver ,h/o falls brought by EMS to ED .The patient was found on the floor in living room for the whole night . The patient was very poor historian & he told that he fell last night & had some swelling on back of head .The patient was not able to get up from floor .denies any pain on the back of head -denies fever,N/V ,chest pain ,abd pain ,blurry vision The patient also had incoherent speech -& on examination ,a small swelling was noted .The tongue was dry & mildly hard ,mucosa dry-vitals are normal . Chest was clear o auscultation . heart sound S1S2 present -no added sound ABD soft & non tender unstable gait - Rash present in groin area CT head done that shows no acute findings Chest x ray was unremarkable CBC shows mild anemia HB 9.1 gm/dl chemistry shows raised creatinine & BUN Urine shows nitrites - The decision was made to admit the patient for treatment of acute kidney injury & UTI - There was also raised ammonia . E hospitalist consult was put -he ordered I/V Rocephin for UTI & hydration for acute injury . The patient was seen on daily rounds -Kidney functions improved -antibiotic continued -for groin rash -area was cleaned &Nystatin applied .For hyperammonem ia,the patient was already on rifaximin . The patient was getting better -BUT does not have stable gait & balance .PT/OT consult was requested for rehabilitation & improvement of daily routine work -S ocial consult was placed for proper disposition. Physical therapist asses the patient & recommended to transfer the patient on swing bed & he will work on rehabilitation. The patient decline the treatment left for home against st the medical advice . HPI Initial Comments: Acute kidney injury UTI h/o Fall hyperammonemia Brief History: 64 yearl male margo bustamante found unresponsive in living room Diagnosis: Stroke: No - Discharge Data Discharge Date: 04/16/20 Discharge Disposition: Against Medical Advice 07 Condition: Fair - Referral to Home Health Date of Face to Face Encounter: 04/16/20 Primary Care Physician: PCP None - Discharge Diagnosis/Problem(s) (1) Acute kidney injury SNOMED Code(s): 88620747, [id number] ICD Code: N17.9 - ACUTE KIDNEY FAILURE, UNSPECIFIED Status: Acute Priority: Medium Onset Date: ~04/13/20 Problem Details: keep your good hydrations (2) UTI (urinary tract infection) SNOMED Code(s): 62078333 ICD Code: N39.0 - URINARY TRACT INFECTION, SITE NOT SPECIFIED Status: Acute Priority: Medium Onset Date: ~04/13/20 Problem Details: continue ciprofloxin for 5 days Qualifiers: Encounter type: initial encounter (3) Fungal infection of the groin SNOMED Code(s): 737595605 ICD Code: B35.6 - TINEA CRURIS Status: Acute Priority: Medium Onset Date: ~04/12/20 Problem Details: Clean the area & Nystatin applied - Patient Summary/Data Consults: Consultations 04/13/20 17:26 PT Evaluation and Treatment [CONS] Routine Please Evaluate and Treat. PT Reason for Consult: Balance This query below is only for informational purposes and is not editable. Admission Diagnosis/Problem: Acute kidney injury 04/13/20 17:28 OT Evaluation and Treatment [CONS] Routine Please Evaluate and Treat. OT Reason for Consult: Strengthening This query below is only for informational purposes and is not editable. Admission Diagnosis/Problem: Acute kidney injury 04/14/20 12:53 Consult to Case Management/Morning Caregiver [CONS] Routine Comment: Physician Instructions: Service(s) to be Consulted: Case Management - Discharge Plan *PRESCRIPTION DRUG MONITORING PROGRAM REVIEWED*: No *COPY OF PRESCRIPTION DRUG MONITORING REPORT IN PATIENT JACKY: Yes Home Medications: Home Meds Gabapentin 2 tab PO QPM 07/29/14 [History] Lisinopril 40 mg PO DAILY 07/29/14 [History] Metoprolol Tartrate [Lopressor] 50 mg PO BID 07/29/14 [History] Multivits-Min/FA/Lycopene/Lut [[facility]] 1 tab PO DAILY 07/29/14 [History] buPROPion [buPROPion XL] 300 mg PO DAILY 07/29/14 [History] lamoTRIgine [Lamictal] 200 mg PO DAILY 06/28/17 [History] QUEtiapine [SEROquel] 100 mg PO DAILY 09/19/18 [History] allopurinoL [Zyloprim] 150 mg PO QPM 09/19/18 [History] allopurinoL [Zyloprim] 300 mg PO DAILY 09/19/18 [History] predniSONE [Prednisone] 5 mg PO DAILY 09/19/18 [History] Leflunomide 10 mg PO DAILY 09/20/19 [History] Ferrous Sulfate [Iron] 325 mg PO DAILY 02/20/20 [History] Calcium Carbonate/Vitamin D3 [Calcium 600-Vit D3 400 Tablet] 1 each PO DAILY 03/02/20 [History] Insulin Detemir [Levemir] 20 unit SUBCUT BID 03/02/20 [History] Pantoprazole Sodium [Protonix] 40 mg PO BIDMEALS 03/02/20 [History] Rifaximin [Xifaxan] 550 mg PO BID #120 tab 03/06/20 [Rx] Insulin Aspart [NovoLOG] 0 unit SUBCUT TIDMEALS 04/13/20 [History] QUEtiapine [SEROquel] 200 mg PO BEDTIME 04/13/20 [History] - Discharge Summary/Plan Comment DC Time >30 min.: Yes - Patient Data Vitals - Most Recent: Last Vital Signs Temp 99 F 04/16/20 05:00 Pulse 60 04/16/20 08:37 Resp 16 04/16/20 08:37 BP 119/69 04/16/20 08:37 Pulse Ox 99 04/16/20 08:37 Weight - Most Recent: 250 lb Med Orders - Current: Current Medications Discontinued Medications Acetaminophen (Tylenol) 650 mg PO Q4H PRN PRN Reason: Pain (Mild 1-3)/fever Last Admin: 04/13/20 22:36 Dose: 650 mg Documented by: Allopurinol (Zyloprim) 150 mg PO QPM [facility] Last Admin: 04/15/20 20:01 Dose: 150 mg Documented by: Allopurinol (Zyloprim) 300 mg PO DAILY [facility] Last Admin: 04/16/20 08:05 Dose: 300 mg Documented by: Bupropion HCl (Wellbutrin Xl) 300 mg PO DAILY [facility] Last Admin: 04/16/20 08:05 Dose: 300 mg Documented by: Calcium Carbonate (Caltrate 600+D 1500 Mg-400 Units) 1 tab PO DAILY [facility] Last Admin: 04/16/20 08:06 Dose: 1 tab Documented by: Dextrose/Water (Dextrose 50% In Water) 50 ml IVPUSH ASDIRECTED PRN PRN Reason: Hypoglycemia Ferrous Sulfate (Ferrous Sulfate) 325 mg PO DAILY [facility] Last Admin: 04/16/20 08:06 Dose: 325 mg Documented by: Gabapentin (Neurontin) 1,200 mg PO QPM [facility] Last Admin: 04/15/20 19:55 Dose: 1,200 mg Documented by: Glucagon (Glucagen) 1 mg IM ASDIRECTED PRN PRN Reason: Hypoglycemia Heparin Sodium (Porcine) (Heparin Sodium) 5,000 units SUBCUT Q8H [facility] Last Admin: 04/16/20 12:38 Dose: Not Given Documented by: Sodium Chloride (Normal Saline) 500 mls @ 999 mls/hr IV .BOLUS ONE Stop: 04/13/20 14:34 Last Admin: 04/13/20 14:25 Dose: 999 mls/hr Documented by: Lactated Ringer's (Ringers, Lactated) 1,000 mls @ 50 mls/hr IV ASDIRECTED [facility] Last Admin: 04/16/20 09:00 Dose: 50 mls/hr Documented by: Ceftriaxone Sodium 1 gm/ (Sodium Chloride) 50 mls @ 100 mls/hr IV Q24H [facility] Stop: 04/15/20 20:00 Last Admin: 04/15/20 19:52 Dose: 100 mls/hr Documented by: Insulin Aspart (Novolog) 0 unit SUBCUT TIDMEALS [facility]; Protocol Insulin Glargine (Lantus Solostar) 20 units SUBCUT BID [facility] Last Admin: 04/16/20 08:48 Dose: 20 units Documented by: Insulin Human Lispro (Humalog) 0 unit SUBCUT QIDACANDBED [facility] Last Admin: 04/16/20 12:13 Dose: 4 units Documented by: Lamotrigine (Lamictal) 150 mg PO DAILY [facility] Last Admin: 04/14/20 09:28 Dose: 150 mg Documented by: Lamotrigine (Lamotrigine) 50 mg PO DAILY [facility] Last Admin: 04/14/20 09:28 Dose: 50 mg Documented by: Leflunomide (Arava) 10 mg PO DAILY [facility] Last Admin: 04/16/20 08:38 Dose: Not Given Documented by: Lisinopril (Prinivil) 40 mg PO DAILY [facility] Last Admin: 04/16/20 08:05 Dose: 40 mg Documented by: Melatonin (Melatonin) 3 mg PO BEDTIME PRN PRN Reason: Sleep Metoprolol Tartrate (Lopressor) 50 mg PO BID [facility] Last Admin: 04/16/20 08:06 Dose: 50 mg Documented by: Multivitamins/Minerals (Thera M Plus) 1 tab PO DAILY [facility] Last Admin: 04/16/20 08:06 Dose: 1 tab Documented by: Neomycin/Polymyxin/Bacitracin (Triple Antibiotic Oint) Confirm Administered Dose 1 each .ROUTE .ST-MED ONE Stop: 04/16/20 08:01 Last Admin: 04/16/20 11:34 Dose: Not Given Documented by: Lamictal 100 Mg Tabs (*Non-Formulary Med*) 0 each PO DAILY [facility] Last Admin: 04/16/20 08:48 Dose: 200 each Documented by: Nystatin (Nystop) 0 gm TOP BID [facility] Last Admin: 04/16/20 08:09 Dose: 1 applic Documented by: Ondansetron HCl (Zofran) 4 mg IV Q4H PRN PRN Reason: Nausea/Vomiting Oxycodone HCl (Oxycodone) 5 mg PO Q4H PRN PRN Reason: Pain (moderate 4-6) Last Admin: 04/13/20 22:34 Dose: 5 mg Documented by: Pantoprazole Sodium (Protonix) 40 mg PO BIDMEALS [facility] Last Admin: 04/16/20 08:06 Dose: 40 mg Documented by: Prednisone (Prednisone) 5 mg PO DAILY [facility] Last Admin: 04/16/20 08:06 Dose: 5 mg Documented by: Quetiapine Fumarate (Seroquel) 200 mg PO BEDTIME [facility] Last Admin: 04/15/20 20:00 Dose: 200 mg Documented by: Quetiapine Fumarate (Seroquel) 100 mg PO DAILY [facility] Last Admin: 04/16/20 08:06 Dose: 100 mg Documented by: Quetiapine Fumarate (Quetiapine Fumarate) Confirm Administered Dose 200 mg PO .[facility]-MED ONE Stop: 04/14/20 19:46 Last Admin: 04/14/20 19:52 Dose: Not Given Documented by: Quetiapine Fumarate (Quetiapine Fumarate) Confirm Administered Dose 200 mg PO .STK-MED ONE Stop: 04/15/20 20:01 Last Admin: 04/15/20 20:05 Dose: Not Given Documented by: Rifaximin (Xifaxan) 550 mg PO BID [facility] Last Admin: 04/16/20 08:06 Dose: 550 mg Documented by:
== END 2020-04-16 14:50 | disposition left against medical advice (07) | DRG 682 ==
LOC: LB.ED 13:07 → LB.MS 15:16
PROVIDERS: ADMIT Physician Assistant; ATTEND Physician Assistant
DX: N17.9 Acute kidney failure, unspecified (principal); G92 Toxic encephalopathy; N39.0 Urinary tract infection, site not specified; E72.20 Disorder of urea cycle metabolism, unspecified; I11.0 Hypertensive heart disease with heart failure; I13.0 Hypertensive heart and chronic kidney disease with heart failure and stage 1 through stage 4 chronic kidney disease, or unspecified chronic kidney disease; K74.60 Unspecified cirrhosis of liver; K72.90 Hepatic failure, unspecified without coma; B35.6 Tinea cruris; H54.7 Unspecified visual loss; I25.10 Atherosclerotic heart disease of native coronary artery without angina pectoris; N28.9 Disorder of kidney and ureter, unspecified; H91.90 Unspecified hearing loss, unspecified ear; I50.9 Heart failure, unspecified; E78.00 Pure hypercholesterolemia, unspecified; F32.9 Major depressive disorder, single episode, unspecified; J43.9 Emphysema, unspecified; E11.21 Type 2 diabetes mellitus with diabetic nephropathy; N40.1 Benign prostatic hyperplasia with lower urinary tract symptoms; R32 Unspecified urinary incontinence; N40.0 Benign prostatic hyperplasia without lower urinary tract symptoms; M19.90 Unspecified osteoarthritis, unspecified site; R26.9 Unspecified abnormalities of gait and mobility; Z88.6 Allergy status to analgesic agent; M10.9 Gout, unspecified; M06.9 Rheumatoid arthritis, unspecified; F41.9 Anxiety disorder, unspecified; D63.1 Anemia in chronic kidney disease; F31.9 Bipolar disorder, unspecified; Z20.822 Contact with and (suspected) exposure to COVID-19; E11.42 Type 2 diabetes mellitus with diabetic polyneuropathy; N18.9 Chronic kidney disease, unspecified; E11.22 Type 2 diabetes mellitus with diabetic chronic kidney disease; R21 Rash and other nonspecific skin eruption; R79.89 Other specified abnormal findings of blood chemistry; Z79.52 Long term (current) use of systemic steroids; Z79.899 Other long term (current) drug therapy; Z79.4 Long term (current) use of insulin; Z87.891 Personal history of nicotine dependence; I25.2 Old myocardial infarction; Z95.5 Presence of coronary angioplasty implant and graft; Z95.1 Presence of aortocoronary bypass graft; Z88.5 Allergy status to narcotic agent; Z91.81 History of falling; Z88.8 Allergy status to other drugs, medicaments and biological substances
CPT/HCPCS: 36415; 70450; 71045; 73030-LT; 80048; 80053; 80307; 81001; 82140; 82550; 82962; 83735; 84100; 84484; 85025; 85379; 85610; 87086; 87088; 87186; 97161-GP; 99285-25; A9270-GY; J0696; J1644; J1815; J1815-GY; J7040; J7120; J7512; U0002

== ENCOUNTER 2020-05-03 13:26 | Inpatient (IN) | payer MEDICARE, OTHER ==
--- NOTE | 2020-05-03 14:13 | EDM.PDOC ---
ED HPI GENERAL MEDICAL PROBLEM - General Chief Complaint: General Stated Complaint: WEAK Time Seen by Provider: 05/03/20 13:30 Source of Information: Reports: Patient History Limitations: Reports: No Limitations - History of Present Illness INITIAL COMMENTS - FREE TEXT/NARRATIVE: 64 year old male with PMH diabetes, CABG, HTN, MARGARITA, elevated liver enzymes, presents to ED after 3 falls since 2300 yesterday. Patient called 911 and had an EMS assist for the first 2 falls, then for the third he presents to ED. Denies any injury, slid himself to the ground when he felt his legs become weak. Denies hitting his head. Patient is a poor historian and is not able to verbalize how long he has had the weakness . Patient has slower slurred speech at baseline with a large geographical tongue at baseline. Denies any fever, CP, SOB, N/V/D, and cough, although he has been coughing since arrival in the ED. - Related Data Allergies Allergy/AdvReac Type Severity Reaction Status Date / Time morphine Allergy Cannot Verified 05/03/20 13:51 Remember Serotonin 5HT-3 Antagonists Allergy Cannot Verified 05/03/20 13:51 Remember fentanyl AdvReac Cannot Verified 05/03/20 13:51 Remember Home Meds: Home Meds Gabapentin 2 tab PO QPM 07/29/14 [History] Lisinopril 40 mg PO DAILY 07/29/14 [History] Metoprolol Tartrate [Lopressor] 50 mg PO BID 07/29/14 [History] Multivits-Min/FA/Lycopene/Lut [[facility]] 1 tab PO DAILY 07/29/14 [History] buPROPion [buPROPion XL] 300 mg PO DAILY 07/29/14 [History] lamoTRIgine [Lamictal] 200 mg PO DAILY 06/28/17 [History] QUEtiapine [SEROquel] 100 mg PO DAILY 09/19/18 [History] allopurinoL [Zyloprim] 150 mg PO QPM 09/19/18 [History] allopurinoL [Zyloprim] 300 mg PO DAILY 09/19/18 [History] predniSONE [Prednisone] 5 mg PO DAILY 09/19/18 [History] Leflunomide 10 mg PO DAILY 09/20/19 [History] Ferrous Sulfate [Iron] 325 mg PO DAILY 02/20/20 [History] Calcium Carbonate/Vitamin D3 [Calcium 600-Vit D3 400 Tablet] 1 each PO DAILY 03/02/20 [History] Insulin Detemir [Levemir] 20 unit SUBCUT BID 03/02/20 [History] Pantoprazole Sodium [Protonix] 40 mg PO BIDMEALS 03/02/20 [History] Rifaximin [Xifaxan] 550 mg PO BID #120 tab 03/06/20 [Rx] Insulin Aspart [NovoLOG] 0 unit SUBCUT TIDMEALS 04/13/20 [History] QUEtiapine [SEROquel] 200 mg PO BEDTIME 04/13/20 [History] Past Medical History HEENT History: Reports: Impaired Vision Other HEENT History: [place] Cardiovascular History: Reports: CAD, Heart Failure, High Cholesterol, Hypertension, [place], Stents Other Cardiovascular History: stent 1993 Respiratory History: Reports: Other (See Below) Other Respiratory History: Emphysema Gastrointestinal History: Reports: Cirrhosis, Other (See Below) Other Gastrointestinal History: Hepatic encephalopathy Genitourinary History: Reports: Diabetic Nephropathy, Renal Disease, Urinary Incontinence Other Genitourinary History: BPH, fiborus Musculoskeletal History: Reports: Arthritis, Gout, RA, Other (See Below) Other Musculoskeletal History: finger fractures Neurological History: Reports: Neuropathy, Diabetic Psychiatric History: Reports: Anxiety, Bipolar, Depression, Panic Attack Endocrine/Metabolic History: Reports: Diabetes, Type II Hematologic History: Reports: Anemia Immunologic History: Reports: None Oncologic (Cancer) History: Reports: None Dermatologic History: Reports: Other (See Below) Other Dermatologic History: Medication for SA lesions - Infectious Disease History Infectious Disease History: Reports: Chicken Pox, Measles - Past Surgical History Cardiovascular Surgical History: Reports: Coronary Artery Bypass Other Cardiovascular Surgeries/Procedures: States he's had 2 surgeries on sternum since his bypass surgery to try to help sternum heal together Male Surgical History: Reports: None Musculoskeletal Surgical History: Reports: None Social & Family History - Family History Family Medical History: No Pertinent Family History - Caffeine Use Caffeine Use: Reports: Coffee ED ROS GENERAL - Review of Systems Review Of Systems: See Below Constitutional: Reports: Weakness HEENT: Reports: No Symptoms Respiratory: Reports: Cough Cardiovascular: Reports: Edema GI/Abdominal: Reports: No Symptoms : Reports: No Symptoms Musculoskeletal: Reports: No Symptoms Skin: Reports: Pallor (patient's baseline) Neurological: Reports: Weakness Psychiatric: Reports: No Symptoms ED EXAM, GENERAL - Physical Exam Exam: See Below Exam Limited By: No Limitations General Appearance: Alert, No Apparent Distress Eye Exam: Bilateral Eye: PERRL Ears: Normal External Exam Ear Exam: Bilateral Ear: Auricle Normal Nose: Normal Inspection Throat/Mouth: Normal Inspection, Normal Lips, Normal Gums, Normal Oropharynx Head: Atraumatic Neck: Normal Inspection, Non-Tender, Full Range of Motion Respiratory/Chest: No Respiratory Distress, Normal Breath Sounds, No Accessory Muscle Use Cardiovascular: Normal Peripheral Pulses, Regular Rate, Rhythm, No JVD, No Murmur Peripheral Pulses: 3+: Carotid (L), Carotid (R), Radial (L), Radial (R), Dorsalis Pedis (L), Dorsalis Pedis (R) GI/Abdominal: Normal Bowel Sounds, Soft, Non-Tender (Male) Exam: Deferred Rectal (Males) Exam: Deferred Back Exam: Normal Inspection, Full Range of Motion. No: CVA Tenderness (R), CVA Tenderness (L) Extremities: Non-Tender, Normal Capillary Refill, Pedal Edema Neurological: Alert, Oriented, CN II-XII Intact, Normal Cognition, No Motor/Sensory Deficits Psychiatric: Normal Affect, Normal Mood Skin Exam: Warm, Dry, Intact Lymphatic: No Adenopathy Course - Vital Signs Last Recorded V/S: Last Vital Signs Temp 97 F 05/03/20 14:32 Pulse 69 05/03/20 15:24 Resp 16 05/03/20 15:24 BP 136/63 05/03/20 15:24 Pulse Ox 95 05/03/20 15:24 - Orders/Labs/Meds Orders: Active Orders 24 hr Category Date Time Status EKG Documentation Completion [RC] ASDIRECTED Care 05/03/20 13:44 Active CXR [Chest 1V Frontal] [CR] Stat Exams 05/03/20 13:44 Taken CORONAVIRUS COVID-19 KONSTANTIN [MOLEC] Stat Lab 05/03/20 15:00 Received Sodium Chloride 0.9% [Normal Saline] 250 ml Med 05/03/20 14:45 Active IV .BOLUS Code Status [Resuscitation Status] Stat Resus Stat 05/03/20 14:36 Ordered Medication Orders Sodium Chloride (Normal Saline) 250 mls @ 999 mls/hr IV .BOLUS ADAIR Last Admin: 05/03/20 14:48 Dose: 999 mls/hr Documented by: BARI Labs: Laboratory Tests 05/03/20 05/03/20 05/03/20 Range/Units 13:43 13:43 13:45 WBC 10.6 D (4.0-11.0) K/uL RBC 3.30 L (4.50-6.50) M/uL Hgb 9.4 L (13.0-18.0) g/dL Hct 29.5 L (40.0-54.0) % MCV 89 (76-96) fL MCH 28.5 (27.0-32.0) pg MCHC 31.9 (31.0-35.0) g/dL RDW 20.2 H (11.0-16.0) % Plt Count 146 L D (150-400) K/uL MPV 10.7 H (6.0-10.0) fL Neut % (Auto) 78.8 H (45.0-70.0) % Lymph % (Auto) 9.5 L (20.0-40.0) % [place] % (Auto) 8.0 (3.0-10.0) % Eos % (Auto) 3.4 (1.0-5.0) % Baso % (Auto) 0.3 (0.0-0.5) % Neut # (Auto) 8.33 H (2.00-7.50) K/uL Lymph # (Auto) 1.01 L (1.50-4.00) K/uL [place] # (Auto) 0.85 H (0.20-0.80) K/uL Eos # (Auto) 0.36 (0.04-0.40) K/uL Baso # (Auto) 0.03 (0.02-0.10) K/uL Sodium 134 L (136-145) mmol/L Potassium 3.9 (3.5-5.1) mmol/L Chloride 92 L (98-107) mmol/L Carbon Dioxide 31.7 (21.0-32.0) mmol/L Anion Gap 14.2 (5.0-15.0) mmol/L BUN 117 H* D (8-26) mg/dL Creatinine 3.48 H* D (0.70-1.30) mg/dL Est Cr Clr Drug Dosing 22.92 mL/min Estimated GFR (MDRD) 18 L (>60) MLS/MIN BUN/Creatinine Ratio 33.6 H (6-25) Glucose 101 H (74-100) mg/dL Lactic Acid (0.4-2.0) mmol/L Calcium 9.3 (8.5-10.1) mg/dL Magnesium (1.8-2.4) mg/dL Total Bilirubin 1.6 H (0.0-1.0) mg/dL AST 52 H (15-37) U/L ALT 38 (12-78) U/L Alkaline Phosphatase 256 H (46-116) U/L Ammonia 29 (11-32) umol/L Troponin I 0.034 (0.000-0.060) ng/mL B-Natriuretic Peptide (0-125) pg/mL Total Protein 8.2 (6.4-8.2) g/dL Albumin 3.5 (3.4-5.0) g/dL Globulin 4.7 H (2.2-4.2) g/dL Albumin/Globulin Ratio 0.7 L (0.8-2.0) Urine Color Urine Appearance (CLEAR) Urine pH (5.0-8.0) Ur Specific [place] (1.003-1.030) Urine Protein (NEGATIVE) mg/dL Urine Glucose (UA) (NEGATIVE) mg/dL Urine Ketones (NEGATIVE) mg/dL Urine Occult Blood (NEGATIVE) Urine Nitrite (NEGATIVE) Urine Bilirubin (NEGATIVE) Urine Urobilinogen (0.2-1.0) E.U./dL Ur Leukocyte Esterase (NEGATIVE) 05/03/20 05/03/20 05/03/20 Range/Units 13:45 13:50 14:04 WBC (4.0-11.0) K/uL RBC (4.50-6.50) M/uL Hgb (13.0-18.0) g/dL Hct (40.0-54.0) % MCV (76-96) fL MCH (27.0-32.0) pg MCHC (31.0-35.0) g/dL RDW (11.0-16.0) % Plt Count (150-400) K/uL MPV (6.0-10.0) fL Neut % (Auto) (45.0-70.0) % Lymph % (Auto) (20.0-40.0) % [place] % (Auto) (3.0-10.0) % Eos % (Auto) (1.0-5.0) % Baso % (Auto) (0.0-0.5) % Neut # (Auto) (2.00-7.50) K/uL Lymph # (Auto) (1.50-4.00) K/uL [place] # (Auto) (0.20-0.80) K/uL Eos # (Auto) (0.04-0.40) K/uL Baso # (Auto) (0.02-0.10) K/uL Sodium (136-145) mmol/L Potassium (3.5-5.1) mmol/L Chloride (98-107) mmol/L Carbon Dioxide (21.0-32.0) mmol/L Anion Gap (5.0-15.0) mmol/L BUN (8-26) mg/dL Creatinine (0.70-1.30) mg/dL Est Cr Clr Drug Dosing mL/min Estimated GFR (MDRD) (>60) MLS/MIN BUN/Creatinine Ratio (6-25) Glucose (74-100) mg/dL Lactic Acid 1.7 (0.4-2.0) mmol/L Calcium (8.5-10.1) mg/dL Magnesium (1.8-2.4) mg/dL Total Bilirubin (0.0-1.0) mg/dL AST (15-37) U/L ALT (12-78) U/L Alkaline Phosphatase (46-116) U/L Ammonia (11-32) umol/L Troponin I (0.000-0.060) ng/mL B-Natriuretic Peptide 367 H (0-125) pg/mL Total Protein (6.4-8.2) g/dL Albumin (3.4-5.0) g/dL Globulin (2.2-4.2) g/dL Albumin/Globulin Ratio (0.8-2.0) Urine Color Yellow Urine Appearance Clear (CLEAR) Urine pH 5.5 (5.0-8.0) Ur Specific [place] 1.015 (1.003-1.030) Urine Protein Negative (NEGATIVE) mg/dL Urine Glucose (UA) Negative (NEGATIVE) mg/dL Urine Ketones Negative (NEGATIVE) mg/dL Urine Occult Blood Negative (NEGATIVE) Urine Nitrite Negative (NEGATIVE) Urine Bilirubin Negative (NEGATIVE) Urine Urobilinogen 0.2 (0.2-1.0) E.U./dL Ur Leukocyte Esterase Negative (NEGATIVE) 05/03/20 Range/Units 15:17 WBC (4.0-11.0) K/uL RBC (4.50-6.50) M/uL Hgb (13.0-18.0) g/dL Hct (40.0-54.0) % MCV (76-96) fL MCH (27.0-32.0) pg MCHC (31.0-35.0) g/dL RDW (11.0-16.0) % Plt Count (150-400) K/uL MPV (6.0-10.0) fL Neut % (Auto) (45.0-70.0) % Lymph % (Auto) (20.0-40.0) % [place] % (Auto) (3.0-10.0) % Eos % (Auto) (1.0-5.0) % Baso % (Auto) (0.0-0.5) % Neut # (Auto) (2.00-7.50) K/uL Lymph # (Auto) (1.50-4.00) K/uL [place] # (Auto) (0.20-0.80) K/uL Eos # (Auto) (0.04-0.40) K/uL Baso # (Auto) (0.02-0.10) K/uL Sodium (136-145) mmol/L Potassium (3.5-5.1) mmol/L Chloride (98-107) mmol/L Carbon Dioxide (21.0-32.0) mmol/L Anion Gap (5.0-15.0) mmol/L BUN (8-26) mg/dL Creatinine (0.70-1.30) mg/dL Est Cr Clr Drug Dosing mL/min Estimated GFR (MDRD) (>60) MLS/MIN BUN/Creatinine Ratio (6-25) Glucose (74-100) mg/dL Lactic Acid (0.4-2.0) mmol/L Calcium (8.5-10.1) mg/dL Magnesium 2.3 D (1.8-2.4) mg/dL Total Bilirubin (0.0-1.0) mg/dL AST (15-37) U/L ALT (12-78) U/L Alkaline Phosphatase (46-116) U/L Ammonia (11-32) umol/L Troponin I (0.000-0.060) ng/mL B-Natriuretic Peptide (0-125) pg/mL Total Protein (6.4-8.2) g/dL Albumin (3.4-5.0) g/dL Globulin (2.2-4.2) g/dL Albumin/Globulin Ratio (0.8-2.0) Urine Color Urine Appearance (CLEAR) Urine pH (5.0-8.0) Ur Specific [place] (1.003-1.030) Urine Protein (NEGATIVE) mg/dL Urine Glucose (UA) (NEGATIVE) mg/dL Urine Ketones (NEGATIVE) mg/dL Urine Occult Blood (NEGATIVE) Urine Nitrite (NEGATIVE) Urine Bilirubin (NEGATIVE) Urine Urobilinogen (0.2-1.0) E.U./dL Ur Leukocyte Esterase (NEGATIVE) Meds: Medications Generic Name Dose Route Start Last Admin Trade Name José PRN Reason Stop Dose Admin Sodium Chloride 250 mls @ 999 mls/hr 05/03/20 14:45 05/03/20 14:48 Normal Saline IV 999 mls/hr .BOLUS ADAIR Administration Departure - Departure Time of Disposition: 15:54 Disposition: [facility] Clinical Impression: Weakness, MARGARITA (acute kidney injury), Frequent falls - Discharge Information *PRESCRIPTION DRUG MONITORING PROGRAM REVIEWED*: Not Applicable *COPY OF PRESCRIPTION DRUG MONITORING REPORT IN PATIENT JACKY: Not Applicable Instructions: Fall Prevention in the Home, Adult, [id number], Acute Kidney Injury, Adult Referrals: PCP,None [Primary Care Provider] - Forms: ED Department Discharge Sepsis Event Note (ED) - Evaluation Sepsis Screening Result: No Definite Risk - Focused Exam Vital Signs: Vital Signs Temp Pulse Resp BP Pulse Ox 05/03/20 15:24 69 16 136/63 95 05/03/20 14:32 97 F 61 16 133/62 94 L 05/03/20 14:01 96.6 F L 61 18 105/59 L 96 - My Orders Last 24 Hours: My Active Orders 05/03/20 13:44 EKG Documentation Completion [RC] ASDIRECTED CXR [Chest 1V Frontal] [CR] Stat 05/03/20 14:36 Code Status [Resuscitation Status] Stat 05/03/20 14:45 Sodium Chloride 0.9% [Normal Saline] 250 ml IV .BOLUS 05/03/20 15:00 CORONAVIRUS COVID-19 KONSTANTIN [MOLEC] Stat - Assessment/Plan Last 24 Hours: My Active Orders 05/03/20 13:44 EKG Documentation Completion [RC] ASDIRECTED CXR [Chest 1V Frontal] [CR] Stat 05/03/20 14:36 Code Status [Resuscitation Status] Stat 05/03/20 14:45 Sodium Chloride 0.9% [Normal Saline] 250 ml IV .BOLUS 05/03/20 15:00 CORONAVIRUS COVID-19 KONSTANTIN [MOLEC] Stat Plan: Spoke with Ehospitalist Dr. Terrell, he agrees to admission to monitor BUN and creatinine in the AM. Patient is agreeable to the plan. Will hold gabapentin and lisinopril for now.
[2020-05-03] MEDS ORDERED: Sodium Chloride 0.9% 250 ML IV SCH (14:45)
[2020-05-03] MEDS ORDERED: 50% Dextrose in Water 50 ML Syringe IVPUSH PRN (15:47)
[2020-05-03] MEDS ORDERED: Glucagon,Human Recombinant 1 MG Vial IM PRN (15:47)
--- NOTE | 2020-05-03 16:05 | CR ---
DATE OF SERVICE: 05/03/2020 CLINICAL DATA: Cough, falls AP chest: The patient is in an apical lordotic position and has taken a poor inspiration. The patient is status post median sternotomy. The heart size is within normal limits. The lungs appear normal. No pneumothorax. No pleural effusions. MTDD
[2020-05-03] MEDS: Sodium Chloride 0.9% 1,000 ML IV SCH (17:39)
[2020-05-03] MEDS: Pantoprazole 40 MG Tab.CR PO SCH (17:40)
[2020-05-03] MEDS: Insulin Aspart 100 Units/ML 3 ML Pen SUBCUT SCH (17:45)
[2020-05-03] MEDS ORDERED: Allopurinol 300 MG Tab PO SCH (20:00)
[2020-05-03] MEDS: Rifaximin 550 MG Tab PO SCH (20:35)
[2020-05-03] MEDS: Metoprolol Tartrate 100 MG Tab PO SCH (20:37)
[2020-05-03] MEDS: Insulin Detemir 100 Units/ML 3 ML Pen SUBCUT SCH (21:06)
[2020-05-03] MEDS ORDERED: oxyCODONE 5 MG Tab PO PRN (21:44)
[2020-05-03] MEDS ORDERED: oxyCODONE 5 MG Tab ONE (21:49)
[2020-05-04] MEDS: Sodium Chloride 0.9% 1,000 ML IV SCH (02:17)
[2020-05-04] MEDS ORDERED: diphenhydrAMINE 50 MG/ML SDV IVPUSH ONE (03:54)
[2020-05-04] MEDS ORDERED: Calcium Carbonate/Vitamin D3 1500 MG-400 Units Tab PO SCH (08:00)
[2020-05-04] MEDS ORDERED: buPROPion 150 MG Tab.ER PO SCH (08:00)
[2020-05-04] MEDS ORDERED: MULTIVITS MIN PO SCH (08:00)
[2020-05-04] MEDS ORDERED: LYCOPENE PO SCH (08:00)
[2020-05-04] MEDS ORDERED: LUT PO SCH (08:00)
[2020-05-04] MEDS ORDERED: Allopurinol 300 MG Tab PO SCH (08:00)
[2020-05-04] MEDS ORDERED: LAMOTRIGINE 200 MG PO SCH (08:00)
[2020-05-04] MEDS ORDERED: predniSONE 5 MG Tab PO SCH (08:00)
[2020-05-04] MEDS ORDERED: LEFLUNOMIDE 10 MG PO SCH (08:00)
[2020-05-04] MEDS ORDERED: [UNRECOGNIZED DRUG - OTHER] PO SCH (08:00)
[2020-05-04] MEDS ORDERED: Ferrous Sulfate 325 MG Tab PO SCH (08:00)
[2020-05-04] MEDS: Rifaximin 550 MG Tab PO SCH (08:53)
[2020-05-04] MEDS: Pantoprazole 40 MG Tab.CR PO SCH (08:53)
[2020-05-04] MEDS: Metoprolol Tartrate 100 MG Tab PO SCH (08:56)
[2020-05-04] MEDS: Insulin Detemir 100 Units/ML 3 ML Pen SUBCUT SCH (08:57)
[2020-05-04 08:58] VITALS: BP 110/50; PULSE 53
[2020-05-04] MEDS: Insulin Aspart 100 Units/ML 3 ML Pen SUBCUT SCH ×2 (09:16→12:05)
--- NOTE | 2020-05-04 10:54 | PCM.PN ---
- General Info Date of Service: 05/04/20 Functional Status: Reports: Pain Controlled, Tolerating Diet, Ambulating, Urinating - Review of Systems General: Reports: Weakness HEENT: Reports: No Symptoms Pulmonary: Reports: No Symptoms Cardiovascular: Reports: Edema (LE edema at baseline per patient) Gastrointestinal: Reports: Other (blood in stool on hemocult) Genitourinary: Reports: No Symptoms Musculoskeletal: Reports: Back Pain (from previous falls, no new injuries) Skin: Reports: Bruising (bruising in various stages of healing notes to left occipital area, gluteal folds, bilateral knees and arms) Neurological: Reports: Weakness Psychiatric: Reports: No Symptoms - Patient Data Vitals - Most Recent: Last Vital Signs Temp 97.3 F 05/04/20 10:00 Pulse 53 L 05/04/20 10:00 Resp 18 05/04/20 10:00 BP 110/50 L 05/04/20 10:00 Pulse Ox 100 05/04/20 10:00 Weight - Most Recent: 249 lb 6.4 oz I&O - Last 24 Hours: Intake & Output 05/03/20 05/04/20 05/04/20 22:59 06:59 14:59 Intake Total 640 1360 Output Total 350 300 Balance 290 1060 Lab Results Last 24 Hours: Laboratory Results - last 24 hr 05/03/20 05/03/20 05/03/20 Range/Units 13:43 13:43 13:45 WBC 10.6 D (4.0-11.0) K/uL RBC 3.30 L (4.50-6.50) M/uL Hgb 9.4 L (13.0-18.0) g/dL Hct 29.5 L (40.0-54.0) % MCV 89 (76-96) fL MCH 28.5 (27.0-32.0) pg MCHC 31.9 (31.0-35.0) g/dL RDW 20.2 H (11.0-16.0) % Plt Count 146 L D (150-400) K/uL MPV 10.7 H (6.0-10.0) fL Neut % (Auto) 78.8 H (45.0-70.0) % Lymph % (Auto) 9.5 L (20.0-40.0) % [place] % (Auto) 8.0 (3.0-10.0) % Eos % (Auto) 3.4 (1.0-5.0) % Baso % (Auto) 0.3 (0.0-0.5) % Neut # (Auto) 8.33 H (2.00-7.50) K/uL Lymph # (Auto) 1.01 L (1.50-4.00) K/uL [place] # (Auto) 0.85 H (0.20-0.80) K/uL Eos # (Auto) 0.36 (0.04-0.40) K/uL Baso # (Auto) 0.03 (0.02-0.10) K/uL Sodium 134 L (136-145) mmol/L Potassium 3.9 (3.5-5.1) mmol/L Chloride 92 L (98-107) mmol/L Carbon Dioxide 31.7 (21.0-32.0) mmol/L Anion Gap 14.2 (5.0-15.0) mmol/L BUN 117 H* D (8-26) mg/dL Creatinine 3.48 H* D (0.70-1.30) mg/dL Est Cr Clr Drug Dosing 22.92 mL/min Estimated GFR (MDRD) 18 L (>60) MLS/MIN BUN/Creatinine Ratio 33.6 H (6-25) Glucose 101 H (74-100) mg/dL POC Glucose (74-110) mg/dL Lactic Acid (0.4-2.0) mmol/L Calcium 9.3 (8.5-10.1) mg/dL Magnesium (1.8-2.4) mg/dL Total Bilirubin 1.6 H (0.0-1.0) mg/dL AST 52 H (15-37) U/L ALT 38 (12-78) U/L Alkaline Phosphatase 256 H (46-116) U/L Ammonia 29 (11-32) umol/L Troponin I 0.034 (0.000-0.060) ng/mL B-Natriuretic Peptide (0-125) pg/mL Total Protein 8.2 (6.4-8.2) g/dL Albumin 3.5 (3.4-5.0) g/dL Globulin 4.7 H (2.2-4.2) g/dL Albumin/Globulin Ratio 0.7 L (0.8-2.0) Urine Color Urine Appearance (CLEAR) Urine pH (5.0-8.0) Ur Specific [place] (1.003-1.030) Urine Protein (NEGATIVE) mg/dL Urine Glucose (UA) (NEGATIVE) mg/dL Urine Ketones (NEGATIVE) mg/dL Urine Occult Blood (NEGATIVE) Urine Nitrite (NEGATIVE) Urine Bilirubin (NEGATIVE) Urine Urobilinogen (0.2-1.0) E.U./dL Ur Leukocyte Esterase (NEGATIVE) SARS-CoV-2 RNA ([place]) (NEGATIVE) 05/03/20 05/03/20 05/03/20 Range/Units 13:45 13:50 14:04 WBC (4.0-11.0) K/uL RBC (4.50-6.50) M/uL Hgb (13.0-18.0) g/dL Hct (40.0-54.0) % MCV (76-96) fL MCH (27.0-32.0) pg MCHC (31.0-35.0) g/dL RDW (11.0-16.0) % Plt Count (150-400) K/uL MPV (6.0-10.0) fL Neut % (Auto) (45.0-70.0) % Lymph % (Auto) (20.0-40.0) % [place] % (Auto) (3.0-10.0) % Eos % (Auto) (1.0-5.0) % Baso % (Auto) (0.0-0.5) % Neut # (Auto) (2.00-7.50) K/uL Lymph # (Auto) (1.50-4.00) K/uL [place] # (Auto) (0.20-0.80) K/uL Eos # (Auto) (0.04-0.40) K/uL Baso # (Auto) (0.02-0.10) K/uL Sodium (136-145) mmol/L Potassium (3.5-5.1) mmol/L Chloride (98-107) mmol/L Carbon Dioxide (21.0-32.0) mmol/L Anion Gap (5.0-15.0) mmol/L BUN (8-26) mg/dL Creatinine (0.70-1.30) mg/dL Est Cr Clr Drug Dosing mL/min Estimated GFR (MDRD) (>60) MLS/MIN BUN/Creatinine Ratio (6-25) Glucose (74-100) mg/dL POC Glucose (74-110) mg/dL Lactic Acid 1.7 (0.4-2.0) mmol/L Calcium (8.5-10.1) mg/dL Magnesium (1.8-2.4) mg/dL Total Bilirubin (0.0-1.0) mg/dL AST (15-37) U/L ALT (12-78) U/L Alkaline Phosphatase (46-116) U/L Ammonia (11-32) umol/L Troponin I (0.000-0.060) ng/mL B-Natriuretic Peptide 367 H (0-125) pg/mL Total Protein (6.4-8.2) g/dL Albumin (3.4-5.0) g/dL Globulin (2.2-4.2) g/dL Albumin/Globulin Ratio (0.8-2.0) Urine Color Yellow Urine Appearance Clear (CLEAR) Urine pH 5.5 (5.0-8.0) Ur Specific [place] 1.015 (1.003-1.030) Urine Protein Negative (NEGATIVE) mg/dL Urine Glucose (UA) Negative (NEGATIVE) mg/dL Urine Ketones Negative (NEGATIVE) mg/dL Urine Occult Blood Negative (NEGATIVE) Urine Nitrite Negative (NEGATIVE) Urine Bilirubin Negative (NEGATIVE) Urine Urobilinogen 0.2 (0.2-1.0) E.U./dL Ur Leukocyte Esterase Negative (NEGATIVE) SARS-CoV-2 RNA ([place]) (NEGATIVE) 05/03/20 05/03/20 05/03/20 Range/Units 15:00 15:17 17:13 WBC (4.0-11.0) K/uL RBC (4.50-6.50) M/uL Hgb (13.0-18.0) g/dL Hct (40.0-54.0) % MCV (76-96) fL MCH (27.0-32.0) pg MCHC (31.0-35.0) g/dL RDW (11.0-16.0) % Plt Count (150-400) K/uL MPV (6.0-10.0) fL Neut % (Auto) (45.0-70.0) % Lymph % (Auto) (20.0-40.0) % [place] % (Auto) (3.0-10.0) % Eos % (Auto) (1.0-5.0) % Baso % (Auto) (0.0-0.5) % Neut # (Auto) (2.00-7.50) K/uL Lymph # (Auto) (1.50-4.00) K/uL [place] # (Auto) (0.20-0.80) K/uL Eos # (Auto) (0.04-0.40) K/uL Baso # (Auto) (0.02-0.10) K/uL Sodium (136-145) mmol/L Potassium (3.5-5.1) mmol/L Chloride (98-107) mmol/L Carbon Dioxide (21.0-32.0) mmol/L Anion Gap (5.0-15.0) mmol/L BUN (8-26) mg/dL Creatinine (0.70-1.30) mg/dL Est Cr Clr Drug Dosing mL/min Estimated GFR (MDRD) (>60) MLS/MIN BUN/Creatinine Ratio (6-25) Glucose (74-100) mg/dL POC Glucose 216 H (74-110) mg/dL Lactic Acid (0.4-2.0) mmol/L Calcium (8.5-10.1) mg/dL Magnesium 2.3 D (1.8-2.4) mg/dL Total Bilirubin (0.0-1.0) mg/dL AST (15-37) U/L ALT (12-78) U/L Alkaline Phosphatase (46-116) U/L Ammonia (11-32) umol/L Troponin I (0.000-0.060) ng/mL B-Natriuretic Peptide (0-125) pg/mL Total Protein (6.4-8.2) g/dL Albumin (3.4-5.0) g/dL Globulin (2.2-4.2) g/dL Albumin/Globulin Ratio (0.8-2.0) Urine Color Urine Appearance (CLEAR) Urine pH (5.0-8.0) Ur Specific [place] (1.003-1.030) Urine Protein (NEGATIVE) mg/dL Urine Glucose (UA) (NEGATIVE) mg/dL Urine Ketones (NEGATIVE) mg/dL Urine Occult Blood (NEGATIVE) Urine Nitrite (NEGATIVE) Urine Bilirubin (NEGATIVE) Urine Urobilinogen (0.2-1.0) E.U./dL Ur Leukocyte Esterase (NEGATIVE) SARS-CoV-2 RNA ([place]) Negative (NEGATIVE) 05/03/20 05/04/20 05/04/20 Range/Units 19:41 01:32 08:25 WBC 5.8 D (4.0-11.0) K/uL RBC 2.94 L (4.50-6.50) M/uL Hgb 8.4 L (13.0-18.0) g/dL Hct 27.1 L (40.0-54.0) % MCV 92 (76-96) fL MCH 28.6 (27.0-32.0) pg MCHC 31.0 (31.0-35.0) g/dL RDW 20.3 H (11.0-16.0) % Plt Count 93 L D (150-400) K/uL MPV 11.5 H (6.0-10.0) fL Neut % (Auto) 77.6 H (45.0-70.0) % Lymph % (Auto) 11.7 L (20.0-40.0) % [place] % (Auto) 6.7 (3.0-10.0) % Eos % (Auto) 3.5 (1.0-5.0) % Baso % (Auto) 0.5 (0.0-0.5) % Neut # (Auto) 4.49 (2.00-7.50) K/uL Lymph # (Auto) 0.68 L (1.50-4.00) K/uL [place] # (Auto) 0.39 (0.20-0.80) K/uL Eos # (Auto) 0.20 (0.04-0.40) K/uL Baso # (Auto) 0.03 (0.02-0.10) K/uL Sodium (136-145) mmol/L Potassium (3.5-5.1) mmol/L Chloride (98-107) mmol/L Carbon Dioxide (21.0-32.0) mmol/L Anion Gap (5.0-15.0) mmol/L BUN (8-26) mg/dL Creatinine (0.70-1.30) mg/dL Est Cr Clr Drug Dosing mL/min Estimated GFR (MDRD) (>60) MLS/MIN BUN/Creatinine Ratio (6-25) Glucose (74-100) mg/dL POC Glucose 158 H 169 H (74-110) mg/dL Lactic Acid (0.4-2.0) mmol/L Calcium (8.5-10.1) mg/dL Magnesium (1.8-2.4) mg/dL Total Bilirubin (0.0-1.0) mg/dL AST (15-37) U/L ALT (12-78) U/L Alkaline Phosphatase (46-116) U/L Ammonia (11-32) umol/L Troponin I (0.000-0.060) ng/mL B-Natriuretic Peptide (0-125) pg/mL Total Protein (6.4-8.2) g/dL Albumin (3.4-5.0) g/dL Globulin (2.2-4.2) g/dL Albumin/Globulin Ratio (0.8-2.0) Urine Color Urine Appearance (CLEAR) Urine pH (5.0-8.0) Ur Specific [place] (1.003-1.030) Urine Protein (NEGATIVE) mg/dL Urine Glucose (UA) (NEGATIVE) mg/dL Urine Ketones (NEGATIVE) mg/dL Urine Occult Blood (NEGATIVE) Urine Nitrite (NEGATIVE) Urine Bilirubin (NEGATIVE) Urine Urobilinogen (0.2-1.0) E.U./dL Ur Leukocyte Esterase (NEGATIVE) SARS-CoV-2 RNA ([place]) (NEGATIVE) 05/04/20 05/04/20 Range/Units 08:25 08:25 WBC (4.0-11.0) K/uL RBC (4.50-6.50) M/uL Hgb (13.0-18.0) g/dL Hct (40.0-54.0) % MCV (76-96) fL MCH (27.0-32.0) pg MCHC (31.0-35.0) g/dL RDW (11.0-16.0) % Plt Count (150-400) K/uL MPV (6.0-10.0) fL Neut % (Auto) (45.0-70.0) % Lymph % (Auto) (20.0-40.0) % [place] % (Auto) (3.0-10.0) % Eos % (Auto) (1.0-5.0) % Baso % (Auto) (0.0-0.5) % Neut # (Auto) (2.00-7.50) K/uL Lymph # (Auto) (1.50-4.00) K/uL [place] # (Auto) (0.20-0.80) K/uL Eos # (Auto) (0.04-0.40) K/uL Baso # (Auto) (0.02-0.10) K/uL Sodium 135 L (136-145) mmol/L Potassium 4.2 (3.5-5.1) mmol/L Chloride 96 L (98-107) mmol/L Carbon Dioxide 29.0 (21.0-32.0) mmol/L Anion Gap 14.2 (5.0-15.0) mmol/L BUN 115 H* (8-26) mg/dL Creatinine 3.38 H* (0.70-1.30) mg/dL Est Cr Clr Drug Dosing 23.60 mL/min Estimated GFR (MDRD) 18 L (>60) MLS/MIN BUN/Creatinine Ratio 34.0 H (6-25) Glucose 197 H D (74-100) mg/dL POC Glucose (74-110) mg/dL Lactic Acid (0.4-2.0) mmol/L Calcium 8.4 L (8.5-10.1) mg/dL Magnesium (1.8-2.4) mg/dL Total Bilirubin 1.3 H (0.0-1.0) mg/dL AST 48 H (15-37) U/L ALT 35 (12-78) U/L Alkaline Phosphatase 238 H (46-116) U/L Ammonia 22 (11-32) umol/L Troponin I (0.000-0.060) ng/mL B-Natriuretic Peptide 386 H (0-125) pg/mL Total Protein 7.2 (6.4-8.2) g/dL Albumin 3.1 L (3.4-5.0) g/dL Globulin 4.1 (2.2-4.2) g/dL Albumin/Globulin Ratio 0.8 (0.8-2.0) Urine Color Urine Appearance (CLEAR) Urine pH (5.0-8.0) Ur Specific [place] (1.003-1.030) Urine Protein (NEGATIVE) mg/dL Urine Glucose (UA) (NEGATIVE) mg/dL Urine Ketones (NEGATIVE) mg/dL Urine Occult Blood (NEGATIVE) Urine Nitrite (NEGATIVE) Urine Bilirubin (NEGATIVE) Urine Urobilinogen (0.2-1.0) E.U./dL Ur Leukocyte Esterase (NEGATIVE) SARS-CoV-2 RNA ([place]) (NEGATIVE) Med Orders - Current: Current Medications Allopurinol (Zyloprim) 300 mg PO DAILY [facility] Last Admin: 05/04/20 08:55 Dose: 300 mg Documented by: Allopurinol (Zyloprim) 150 mg PO QPM [facility] Last Admin: 05/03/20 20:36 Dose: 150 mg Documented by: Bupropion HCl (Wellbutrin Xl) 300 mg PO DAILY [facility] Last Admin: 05/04/20 08:54 Dose: 300 mg Documented by: Calcium Carbonate (Caltrate 600+D 1500 Mg-400 Units) 1 tab PO DAILY [facility] Last Admin: 05/04/20 08:53 Dose: 1 tab Documented by: Dextrose/Water (Dextrose 50% In Water) 50 ml IVPUSH ASDIRECTED PRN PRN Reason: Hypoglycemia Ferrous Sulfate (Ferrous Sulfate) 325 mg PO DAILY [facility] Last Admin: 05/04/20 08:52 Dose: 325 mg Documented by: Glucagon (Glucagen) 1 mg IM ASDIRECTED PRN PRN Reason: Hypoglycemia Sodium Chloride (Normal Saline) 1,000 mls @ 100 mls/hr IV ASDIRECTED [facility] Last Admin: 05/04/20 02:17 Dose: 100 mls/hr Documented by: Insulin Aspart (Novolog) 0 unit SUBCUT TIDMEALS [facility]; Protocol Last Admin: 05/04/20 09:16 Dose: 2 units Documented by: Insulin Detemir (Levemir) 20 unit SUBCUT BID [facility] Last Admin: 05/04/20 08:57 Dose: Not Given Documented by: Metoprolol Tartrate (Lopressor) 50 mg PO BID [facility] Last Admin: 05/04/20 08:56 Dose: Not Given Documented by: Non-Formulary Medication (Lamotrigine [Lamictal]) 200 mg PO DAILY [facility] Last Admin: 05/04/20 08:56 Dose: 200 mg Documented by: Non-Formulary Medication (Leflunomide [Leflunomide]) 10 mg PO DAILY [facility] Last Admin: 05/04/20 08:56 Dose: Not Given Documented by: Non-Formulary Medication (Multivits-Min/Fa/Lycopene/Lut [[facility]]) 1 tab PO DAILY [facility] Last Admin: 05/04/20 08:55 Dose: Not Given Documented by: Oxycodone HCl (Oxycodone) 5 mg PO Q6H PRN PRN Reason: Pain Last Admin: 05/03/20 21:52 Dose: 5 mg Documented by: Pantoprazole Sodium (Protonix) 40 mg PO BIDMEALS [facility] Last Admin: 05/04/20 08:53 Dose: 40 mg Documented by: Prednisone (Prednisone) 5 mg PO DAILY [facility] Last Admin: 05/04/20 08:53 Dose: 5 mg Documented by: Quetiapine Fumarate (Seroquel) 200 mg PO BEDTIME [facility] Last Admin: 05/03/20 20:34 Dose: 200 mg Documented by: Rifaximin (Xifaxan) 550 mg PO BID [facility] Last Admin: 05/04/20 08:53 Dose: 550 mg Documented by: Discontinued Medications Diphenhydramine HCl (Benadryl) 25 mg IVPUSH ONETIME ONE Stop: 05/04/20 03:55 Last Admin: 05/04/20 04:09 Dose: 25 mg Documented by: Sodium Chloride (Normal Saline) 250 mls @ 999 mls/hr IV .BOLUS [facility] Last Admin: 05/03/20 14:48 Dose: 999 mls/hr Documented by: Oxycodone HCl (Oxycodone) Confirm Administered Dose 5 mg .ROUTE .STK-MED ONE Stop: 05/03/20 21:50 Last Admin: 05/04/20 01:40 Dose: Not Given Documented by: - Patient Data Lab Results Last 24 hrs: Laboratory Results - last 24 hr 02/18/21 02/18/21 02/18/21 Range/Units 13:43 13:43 13:45 WBC 10.6 D (4.0-11.0) K/uL RBC 3.30 L (4.50-6.50) M/uL Hgb 9.4 L (13.0-18.0) g/dL Hct 29.5 L (40.0-54.0) % MCV 89 (76-96) fL MCH 28.5 (27.0-32.0) pg MCHC 31.9 (31.0-35.0) g/dL RDW 20.2 H (11.0-16.0) % Plt Count 146 L D (150-400) K/uL MPV 10.7 H (6.0-10.0) fL Neut % (Auto) 78.8 H (45.0-70.0) % Lymph % (Auto) 9.5 L (20.0-40.0) % [place] % (Auto) 8.0 (3.0-10.0) % Eos % (Auto) 3.4 (1.0-5.0) % Baso % (Auto) 0.3 (0.0-0.5) % Neut # (Auto) 8.33 H (2.00-7.50) K/uL Lymph # (Auto) 1.01 L (1.50-4.00) K/uL [place] # (Auto) 0.85 H (0.20-0.80) K/uL Eos # (Auto) 0.36 (0.04-0.40) K/uL Baso # (Auto) 0.03 (0.02-0.10) K/uL Sodium 134 L (136-145) mmol/L Potassium 3.9 (3.5-5.1) mmol/L Chloride 92 L (98-107) mmol/L Carbon Dioxide 31.7 (21.0-32.0) mmol/L Anion Gap 14.2 (5.0-15.0) mmol/L BUN 117 H* D (8-26) mg/dL Creatinine 3.48 H* D (0.70-1.30) mg/dL Est Cr Clr Drug Dosing 22.92 mL/min Estimated GFR (MDRD) 18 L (>60) MLS/MIN BUN/Creatinine Ratio 33.6 H (6-25) Glucose 101 H (74-100) mg/dL POC Glucose (74-110) mg/dL Lactic Acid (0.4-2.0) mmol/L Calcium 9.3 (8.5-10.1) mg/dL Magnesium (1.8-2.4) mg/dL Total Bilirubin 1.6 H (0.0-1.0) mg/dL AST 52 H (15-37) U/L ALT 38 (12-78) U/L Alkaline Phosphatase 256 H (46-116) U/L Ammonia 29 (11-32) umol/L Troponin I 0.034 (0.000-0.060) ng/mL B-Natriuretic Peptide (0-125) pg/mL Total Protein 8.2 (6.4-8.2) g/dL Albumin 3.5 (3.4-5.0) g/dL Globulin 4.7 H (2.2-4.2) g/dL Albumin/Globulin Ratio 0.7 L (0.8-2.0) Urine Color Urine Appearance (CLEAR) Urine pH (5.0-8.0) Ur Specific [place] (1.003-1.030) Urine Protein (NEGATIVE) mg/dL Urine Glucose (UA) (NEGATIVE) mg/dL Urine Ketones (NEGATIVE) mg/dL Urine Occult Blood (NEGATIVE) Urine Nitrite (NEGATIVE) Urine Bilirubin (NEGATIVE) Urine Urobilinogen (0.2-1.0) E.U./dL Ur Leukocyte Esterase (NEGATIVE) SARS-CoV-2 RNA ([place]) (NEGATIVE) 05/03/20 05/03/20 05/03/20 Range/Units 13:45 13:50 14:04 WBC (4.0-11.0) K/uL RBC (4.50-6.50) M/uL Hgb (13.0-18.0) g/dL Hct (40.0-54.0) % MCV (76-96) fL MCH (27.0-32.0) pg MCHC (31.0-35.0) g/dL RDW (11.0-16.0) % Plt Count (150-400) K/uL MPV (6.0-10.0) fL Neut % (Auto) (45.0-70.0) % Lymph % (Auto) (20.0-40.0) % [place] % (Auto) (3.0-10.0) % Eos % (Auto) (1.0-5.0) % Baso % (Auto) (0.0-0.5) % Neut # (Auto) (2.00-7.50) K/uL Lymph # (Auto) (1.50-4.00) K/uL [place] # (Auto) (0.20-0.80) K/uL Eos # (Auto) (0.04-0.40) K/uL Baso # (Auto) (0.02-0.10) K/uL Sodium (136-145) mmol/L Potassium (3.5-5.1) mmol/L Chloride (98-107) mmol/L Carbon Dioxide (21.0-32.0) mmol/L Anion Gap (5.0-15.0) mmol/L BUN (8-26) mg/dL Creatinine (0.70-1.30) mg/dL Est Cr Clr Drug Dosing mL/min Estimated GFR (MDRD) (>60) MLS/MIN BUN/Creatinine Ratio (6-25) Glucose (74-100) mg/dL POC Glucose (74-110) mg/dL Lactic Acid 1.7 (0.4-2.0) mmol/L Calcium (8.5-10.1) mg/dL Magnesium (1.8-2.4) mg/dL Total Bilirubin (0.0-1.0) mg/dL AST (15-37) U/L ALT (12-78) U/L Alkaline Phosphatase (46-116) U/L Ammonia (11-32) umol/L Troponin I (0.000-0.060) ng/mL B-Natriuretic Peptide 367 H (0-125) pg/mL Total Protein (6.4-8.2) g/dL Albumin (3.4-5.0) g/dL Globulin (2.2-4.2) g/dL Albumin/Globulin Ratio (0.8-2.0) Urine Color Yellow Urine Appearance Clear (CLEAR) Urine pH 5.5 (5.0-8.0) Ur Specific [place] 1.015 (1.003-1.030) Urine Protein Negative (NEGATIVE) mg/dL Urine Glucose (UA) Negative (NEGATIVE) mg/dL Urine Ketones Negative (NEGATIVE) mg/dL Urine Occult Blood Negative (NEGATIVE) Urine Nitrite Negative (NEGATIVE) Urine Bilirubin Negative (NEGATIVE) Urine Urobilinogen 0.2 (0.2-1.0) E.U./dL Ur Leukocyte Esterase Negative (NEGATIVE) SARS-CoV-2 RNA ([place]) (NEGATIVE) 05/03/20 05/03/20 05/03/20 Range/Units 15:00 15:17 17:13 WBC (4.0-11.0) K/uL RBC (4.50-6.50) M/uL Hgb (13.0-18.0) g/dL Hct (40.0-54.0) % MCV (76-96) fL MCH (27.0-32.0) pg MCHC (31.0-35.0) g/dL RDW (11.0-16.0) % Plt Count (150-400) K/uL MPV (6.0-10.0) fL Neut % (Auto) (45.0-70.0) % Lymph % (Auto) (20.0-40.0) % [place] % (Auto) (3.0-10.0) % Eos % (Auto) (1.0-5.0) % Baso % (Auto) (0.0-0.5) % Neut # (Auto) (2.00-7.50) K/uL Lymph # (Auto) (1.50-4.00) K/uL [place] # (Auto) (0.20-0.80) K/uL Eos # (Auto) (0.04-0.40) K/uL Baso # (Auto) (0.02-0.10) K/uL Sodium (136-145) mmol/L Potassium (3.5-5.1) mmol/L Chloride (98-107) mmol/L Carbon Dioxide (21.0-32.0) mmol/L Anion Gap (5.0-15.0) mmol/L BUN (8-26) mg/dL Creatinine (0.70-1.30) mg/dL Est Cr Clr Drug Dosing mL/min Estimated GFR (MDRD) (>60) MLS/MIN BUN/Creatinine Ratio (6-25) Glucose (74-100) mg/dL POC Glucose 216 H (74-110) mg/dL Lactic Acid (0.4-2.0) mmol/L Calcium (8.5-10.1) mg/dL Magnesium 2.3 D (1.8-2.4) mg/dL Total Bilirubin (0.0-1.0) mg/dL AST (15-37) U/L ALT (12-78) U/L Alkaline Phosphatase (46-116) U/L Ammonia (11-32) umol/L Troponin I (0.000-0.060) ng/mL B-Natriuretic Peptide (0-125) pg/mL Total Protein (6.4-8.2) g/dL Albumin (3.4-5.0) g/dL Globulin (2.2-4.2) g/dL Albumin/Globulin Ratio (0.8-2.0) Urine Color Urine Appearance (CLEAR) Urine pH (5.0-8.0) Ur Specific [place] (1.003-1.030) Urine Protein (NEGATIVE) mg/dL Urine Glucose (UA) (NEGATIVE) mg/dL Urine Ketones (NEGATIVE) mg/dL Urine Occult Blood (NEGATIVE) Urine Nitrite (NEGATIVE) Urine Bilirubin (NEGATIVE) Urine Urobilinogen (0.2-1.0) E.U./dL Ur Leukocyte Esterase (NEGATIVE) SARS-CoV-2 RNA ([place]) Negative (NEGATIVE) 05/03/20 05/04/20 05/04/20 Range/Units 19:41 01:32 08:25 WBC 5.8 D (4.0-11.0) K/uL RBC 2.94 L (4.50-6.50) M/uL Hgb 8.4 L (13.0-18.0) g/dL Hct 27.1 L (40.0-54.0) % MCV 92 (76-96) fL MCH 28.6 (27.0-32.0) pg MCHC 31.0 (31.0-35.0) g/dL RDW 20.3 H (11.0-16.0) % Plt Count 93 L D (150-400) K/uL MPV 11.5 H (6.0-10.0) fL Neut % (Auto) 77.6 H (45.0-70.0) % Lymph % (Auto) 11.7 L (20.0-40.0) % [place] % (Auto) 6.7 (3.0-10.0) % Eos % (Auto) 3.5 (1.0-5.0) % Baso % (Auto) 0.5 (0.0-0.5) % Neut # (Auto) 4.49 (2.00-7.50) K/uL Lymph # (Auto) 0.68 L (1.50-4.00) K/uL [place] # (Auto) 0.39 (0.20-0.80) K/uL Eos # (Auto) 0.20 (0.04-0.40) K/uL Baso # (Auto) 0.03 (0.02-0.10) K/uL Sodium (136-145) mmol/L Potassium (3.5-5.1) mmol/L Chloride (98-107) mmol/L Carbon Dioxide (21.0-32.0) mmol/L Anion Gap (5.0-15.0) mmol/L BUN (8-26) mg/dL Creatinine (0.70-1.30) mg/dL Est Cr Clr Drug Dosing mL/min Estimated GFR (MDRD) (>60) MLS/MIN BUN/Creatinine Ratio (6-25) Glucose (74-100) mg/dL POC Glucose 158 H 169 H (74-110) mg/dL Lactic Acid (0.4-2.0) mmol/L Calcium (8.5-10.1) mg/dL Magnesium (1.8-2.4) mg/dL Total Bilirubin (0.0-1.0) mg/dL AST (15-37) U/L ALT (12-78) U/L Alkaline Phosphatase (46-116) U/L Ammonia (11-32) umol/L Troponin I (0.000-0.060) ng/mL B-Natriuretic Peptide (0-125) pg/mL Total Protein (6.4-8.2) g/dL Albumin (3.4-5.0) g/dL Globulin (2.2-4.2) g/dL Albumin/Globulin Ratio (0.8-2.0) Urine Color Urine Appearance (CLEAR) Urine pH (5.0-8.0) Ur Specific [place] (1.003-1.030) Urine Protein (NEGATIVE) mg/dL Urine Glucose (UA) (NEGATIVE) mg/dL Urine Ketones (NEGATIVE) mg/dL Urine Occult Blood (NEGATIVE) Urine Nitrite (NEGATIVE) Urine Bilirubin (NEGATIVE) Urine Urobilinogen (0.2-1.0) E.U./dL Ur Leukocyte Esterase (NEGATIVE) SARS-CoV-2 RNA ([place]) (NEGATIVE) 05/04/20 05/04/20 Range/Units 08:25 08:25 WBC (4.0-11.0) K/uL RBC (4.50-6.50) M/uL Hgb (13.0-18.0) g/dL Hct (40.0-54.0) % MCV (76-96) fL MCH (27.0-32.0) pg MCHC (31.0-35.0) g/dL RDW (11.0-16.0) % Plt Count (150-400) K/uL MPV (6.0-10.0) fL Neut % (Auto) (45.0-70.0) % Lymph % (Auto) (20.0-40.0) % [place] % (Auto) (3.0-10.0) % Eos % (Auto) (1.0-5.0) % Baso % (Auto) (0.0-0.5) % Neut # (Auto) (2.00-7.50) K/uL Lymph # (Auto) (1.50-4.00) K/uL [place] # (Auto) (0.20-0.80) K/uL Eos # (Auto) (0.04-0.40) K/uL Baso # (Auto) (0.02-0.10) K/uL Sodium 135 L (136-145) mmol/L Potassium 4.2 (3.5-5.1) mmol/L Chloride 96 L (98-107) mmol/L Carbon Dioxide 29.0 (21.0-32.0) mmol/L Anion Gap 14.2 (5.0-15.0) mmol/L BUN 115 H* (8-26) mg/dL Creatinine 3.38 H* (0.70-1.30) mg/dL Est Cr Clr Drug Dosing 23.60 mL/min Estimated GFR (MDRD) 18 L (>60) MLS/MIN BUN/Creatinine Ratio 34.0 H (6-25) Glucose 197 H D (74-100) mg/dL POC Glucose (74-110) mg/dL Lactic Acid (0.4-2.0) mmol/L Calcium 8.4 L (8.5-10.1) mg/dL Magnesium (1.8-2.4) mg/dL Total Bilirubin 1.3 H (0.0-1.0) mg/dL AST 48 H (15-37) U/L ALT 35 (12-78) U/L Alkaline Phosphatase 238 H (46-116) U/L Ammonia 22 (11-32) umol/L Troponin I (0.000-0.060) ng/mL B-Natriuretic Peptide 386 H (0-125) pg/mL Total Protein 7.2 (6.4-8.2) g/dL Albumin 3.1 L (3.4-5.0) g/dL Globulin 4.1 (2.2-4.2) g/dL Albumin/Globulin Ratio 0.8 (0.8-2.0) Urine Color Urine Appearance (CLEAR) Urine pH (5.0-8.0) Ur Specific [place] (1.003-1.030) Urine Protein (NEGATIVE) mg/dL Urine Glucose (UA) (NEGATIVE) mg/dL Urine Ketones (NEGATIVE) mg/dL Urine Occult Blood (NEGATIVE) Urine Nitrite (NEGATIVE) Urine Bilirubin (NEGATIVE) Urine Urobilinogen (0.2-1.0) E.U./dL Ur Leukocyte Esterase (NEGATIVE) SARS-CoV-2 RNA ([place]) (NEGATIVE) Result Diagrams: 05/04/20 08:25 05/04/20 08:25 Sepsis Event Note - Evaluation Sepsis Screening Result: No Definite Risk - Focused Exam Vital Signs: Vital Signs Temp Temp Pulse Pulse Resp BP BP 05/04/20 10:00 97.3 F 53 L 18 05/04/20 08:56 53 L 110/50 L 05/04/20 07:51 56 L 18 05/04/20 06:00 98 F 55 L 16 95/52 L 05/04/20 04:36 55 L 14 84/46 L 05/04/20 04:15 54 L 16 70/39 L 05/04/20 03:30 54 L 14 94/51 L 05/04/20 02:30 56 L 16 80/44 L 05/04/20 02:00 104 H 16 87/46 L 05/04/20 01:31 98 F 102 H 16 85/45 L BP Pulse Ox 05/04/20 10:00 110/50 L 100 05/04/20 08:56 05/04/20 07:51 104/62 100 05/04/20 06:00 97 05/04/20 04:36 95 05/04/20 04:15 95 05/04/20 03:30 96 05/04/20 02:30 97 05/04/20 02:00 99 05/04/20 01:31 100 - Problem List Review Problem List Initiated/Reviewed/Updated: Yes - My Orders Last 24 Hours: My Active Orders 05/03/20 13:44 EKG Documentation Completion [RC] ASDIRECTED 05/03/20 14:36 Code Status [Resuscitation Status] Stat 05/03/20 15:43 Patient Status [ADT] Routine Up With Assistance [RC] ASDIRECTED Vital Signs [RC] Q4H 05/03/20 15:45 Intake and Output [RC] ,18 05/03/20 15:46 Neuro Check [RC] Q4HR 05/03/20 15:47 Dextrose 50% in Water 50 ml IVPUSH ASDIRECTED PRN Glucagon,Human Recombinant [GlucaGen] 1 mg IM ASDIRECTED PRN 05/03/20 15:56 OT Evaluation and Treatment [CONS] Routine PT Evaluation and Treatment [CONS] Routine 05/03/20 16:00 Sodium Chloride 0.9% [Normal Saline] 1,000 ml IV ASDIRECTED 05/03/20 Dinner 2 Gram Sodium Diet [DIET] Pantoprazole [ProTONIX] 40 mg PO BIDMEALS 05/03/20 18:00 Insulin Aspart [NovoLOG] See Protocol SUBCUT TIDMEALS 05/03/20 20:00 Insulin Detemir [Levemir] 20 unit SUBCUT BID Metoprolol Tartrate [Lopressor] 50 mg PO BID QUEtiapine [SEROquel] 200 mg PO BEDTIME Rifaximin [Xifaxan] 550 mg PO BID allopurinoL [Zyloprim] 150 mg PO QPM 05/03/20 21:44 oxyCODONE 5 mg PO Q6H PRN 05/04/20 CULTURE MRSA SURVEY [RM] Routine 05/04/20 03:32 EKG Documentation Completion [RC] ASDIRECTED 05/04/20 03:33 Telemetry Monitoring [Cardiac Monitoring] [RC] .As Directed 05/04/20 08:00 Calcium Carbonate/Vitamin D3 [Caltrate 600+D 1500 MG-400 Units] 1 tab PO DAILY Ferrous Sulfate 325 mg PO DAILY Leflunomide [Leflunomide] 10 mg PO DAILY Multivits-Min/FA/Lycopene/Lut [Sentry Senior] 1 tab PO DAILY allopurinoL [Zyloprim] 300 mg PO DAILY buPROPion [Wellbutrin XL] 300 mg PO DAILY lamoTRIgine [Lamictal] 200 mg PO DAILY predniSONE 5 mg PO DAILY 05/04/20 10:31 INR,PT,PROTHROMBIN TIME [COAG] Routine 05/04/20 10:33 NICOLE Hose [Antiembolic Hose] [OM.PC] Routine - Assessment Assessment:: Patient had several episodes of bradycardia and hypotension overnight. He was bolused 250ml NS IV with mild improvement. Repeat labs this AM show decreased HGB, elevated BUN and creatinine, low platelets. Patient is still urinating without issues, no fever, cough, chills, abdominal pain, BRBPR, N/V/D, SOB, or CP. - Plan Plan:: Attempted to transfer patient to [facility] for further cares, spoke with Dr. Huizar, he is not comfortable taking the patient due to PMH of cirrhosis and esophageal varices. The patient will be transfered to [facility] with Dr. Burleson as accepting. Patient is agreeable to the plan and will go by ground AMB ACLS to [place]. He is requesting some belongings from home and Mignon TA is working on coordinating this.
== END 2020-05-04 11:45 | DRG 315 ==
LOC: LB.ED 13:26 → LB.MS 15:43
PROVIDERS: ADMIT Nurse Practitioner; ATTEND Nurse Practitioner
DX: R53.1 Weakness (principal); I95.9 Hypotension, unspecified; N17.9 Acute kidney failure, unspecified; R29.6 Repeated falls; H54.7 Unspecified visual loss; F41.0 Panic disorder [episodic paroxysmal anxiety]; F32.9 Major depressive disorder, single episode, unspecified; E11.42 Type 2 diabetes mellitus with diabetic polyneuropathy; E11.21 Type 2 diabetes mellitus with diabetic nephropathy; I25.10 Atherosclerotic heart disease of native coronary artery without angina pectoris; I13.0 Hypertensive heart and chronic kidney disease with heart failure and stage 1 through stage 4 chronic kidney disease, or unspecified chronic kidney disease; I11.0 Hypertensive heart disease with heart failure; N40.1 Benign prostatic hyperplasia with lower urinary tract symptoms; N39.498 Other specified urinary incontinence; M19.90 Unspecified osteoarthritis, unspecified site; N18.9 Chronic kidney disease, unspecified; I50.9 Heart failure, unspecified; Z95.1 Presence of aortocoronary bypass graft; Z88.5 Allergy status to narcotic agent; E78.00 Pure hypercholesterolemia, unspecified; I25.2 Old myocardial infarction; Z95.5 Presence of coronary angioplasty implant and graft; J43.9 Emphysema, unspecified; E11.22 Type 2 diabetes mellitus with diabetic chronic kidney disease; E11.40 Type 2 diabetes mellitus with diabetic neuropathy, unspecified; K74.60 Unspecified cirrhosis of liver; M10.9 Gout, unspecified; M06.9 Rheumatoid arthritis, unspecified; N40.0 Benign prostatic hyperplasia without lower urinary tract symptoms; F33.9 Major depressive disorder, recurrent, unspecified; F41.9 Anxiety disorder, unspecified; D64.9 Anemia, unspecified; Z88.6 Allergy status to analgesic agent; Z88.8 Allergy status to other drugs, medicaments and biological substances; Z79.4 Long term (current) use of insulin; Z79.52 Long term (current) use of systemic steroids; Z79.899 Other long term (current) drug therapy; Z20.822 Contact with and (suspected) exposure to COVID-19
CPT/HCPCS: 36415; 71045; 80053; 81003; 82140; 83605; 83735; 83880; 84484; 85025; 93005; 99285; A0425; A0429; J7040; U0002; 82962; 85610; 97161-GP; A9270-GY; J1200; J1815-GY; J7030; J7512

== ENCOUNTER 2020-05-09 11:05 | Inpatient (IN) | payer MEDICARE, OTHER ==
[2020-05-09] MEDS ORDERED: Glucagon,Human Recombinant 1 MG Vial IM PRN (13:49)
[2020-05-09] MEDS ORDERED: 50% Dextrose in Water 50 ML Syringe IVPUSH PRN (13:49)
[2020-05-09] MEDS ORDERED: Nitroglycerin 0.4 MG Tab.SL SL PRN (13:49)
[2020-05-09] MEDS ORDERED: Tuberculin, PPD 5 Units/0.1 ML 1 ML MDV IDERM ONE (14:52)
[2020-05-09] MEDS: Insulin Aspart 100 Units/ML 3 ML Pen SUBCUT SCH ×2 (16:47→20:45)
[2020-05-09] MEDS ORDERED: Pantoprazole 40 MG Tab.CR PO SCH (17:00)
--- NOTE | 2020-05-09 17:05 | PCM.HP.2 ---
H&P History of Present Illness - General Date of Service: 05/09/20 Admit Problem/Dx: Admission Diagnosis/Problem Admission Diagnosis/Problem Weakness Source of Information: Patient History Limitations: Reports: No Limitations - History of Present Illness Initial Comments - Free Text/Narative: This is a 64yo M post discharge from [facility] for recent bradycardia, anemia, acute renal failure, and hypotension with AMS. He has improved greatly and here for rehabilitation and possible transfer to the [facility]. Onset of Symptoms: Reports: Gradual Duration of Symptoms: Reports: Improving Location: Reports: Generalized Associated Symptoms: Reports: No Other Symptoms Left Chest Pain Score (Numeric/FACES): 3 - Related Data Allergies/Adverse Reactions: Allergies Allergy/AdvReac Type Severity Reaction Status Date / Time morphine Allergy Cannot Verified 05/03/20 13:51 Remember Serotonin 5HT-3 Antagonists Allergy Cannot Verified 05/09/20 14:14 Remember fentanyl AdvReac Cannot Verified 05/03/20 13:51 Remember Home Medications: Home Meds buPROPion [buPROPion XL] 300 mg PO DAILY 07/29/14 [History] lamoTRIgine [Lamictal] 200 mg PO DAILY 06/28/17 [History] allopurinoL [Zyloprim] 150 mg PO QPM 09/19/18 [History] allopurinoL [Zyloprim] 300 mg PO DAILY 09/19/18 [History] predniSONE [Prednisone] 5 mg PO DAILY 09/19/18 [History] Leflunomide 10 mg PO DAILY 09/20/19 [History] Ferrous Sulfate [Iron] 325 mg PO DAILY 02/20/20 [History] Calcium Carbonate/Vitamin D3 [Calcium 600-Vit D3 400 Tablet] 1 each PO DAILY 03/02/20 [History] Pantoprazole Sodium [Protonix] 40 mg PO BIDMEALS 03/02/20 [History] Insulin Aspart [NovoLOG] 0 unit SUBCUT TIDMEALS 04/13/20 [History] QUEtiapine [SEROquel] 50 mg PO BEDTIME 04/13/20 [History] Acetaminophen 500 mg PO Q6H PRN 05/09/20 [History] Cholecalciferol (Vitamin D3) [Vitamin D3] 2,000 unit PO DAILY 05/09/20 [History] Lidocaine [Lidoderm] 1 patch TRDERM DAILY PRN 05/09/20 [History] Magnesium Oxide 500 mg PO BID 05/09/20 [History] Melatonin 3 mg PO BEDTIME PRN 05/09/20 [History] Metoprolol Tartrate 25 mg PO BID 05/09/20 [History] Nitroglycerin 0.4 mg SL ASDIRECTED PRN 05/09/20 [History] atorvaSTATin [Lipitor] 20 mg PO BEDTIME 05/09/20 [History] lisinopriL [Lisinopril] 10 mg PO DAILY 05/09/20 [History] Past Medical History HEENT History: Reports: Impaired Vision Other HEENT History: [place] Cardiovascular History: Reports: CAD, Heart Failure, High Cholesterol, Hypertension, [place], Stents Other Cardiovascular History: stent 1993 Respiratory History: Reports: Other (See Below) Other Respiratory History: Emphysema Gastrointestinal History: Reports: Cirrhosis, Other (See Below) Other Gastrointestinal History: Hepatic encephalopathy, esophageal varices Genitourinary History: Reports: Diabetic Nephropathy, Renal Disease, Urinary Incontinence Other Genitourinary History: BPH, fiborus Musculoskeletal History: Reports: Arthritis, Gout, RA, Other (See Below) Other Musculoskeletal History: finger fractures Neurological History: Reports: Neuropathy, Diabetic Psychiatric History: Reports: Anxiety, Bipolar, Depression, Panic Attack Endocrine/Metabolic History: Reports: Diabetes, Type II Hematologic History: Reports: Anemia Immunologic History: Reports: None Oncologic (Cancer) History: Reports: None Dermatologic History: Reports: Other (See Below) Other Dermatologic History: Medication for SA lesions - Infectious Disease History Infectious Disease History: Reports: Chicken Pox, Measles - Past Surgical History HEENT Surgical History: Reports: None Cardiovascular Surgical History: Reports: Coronary Artery Bypass Other Cardiovascular Surgeries/Procedures: States he's had 2 surgeries on sternum since his bypass surgery to try to help sternum heal together GI Surgical History: Reports: EGD Male Surgical History: Reports: None Musculoskeletal Surgical History: Reports: None Social & Family History - Family History Family Medical History: No Pertinent Family History - Caffeine Use Caffeine Use: Reports: Coffee, Soda H&P Review of Systems - Review of Systems: Review Of Systems: Comprehensive ROS is negative, except as noted in HPI. Exam - Exam Exam: See Below - Exam General: Alert, Oriented, Cooperative HEENT: PERRLA, Conjunctiva Clear, EACs Clear, EOMI Neck: Supple, Trachea Midline Lungs: Clear to Auscultation, Normal Respiratory Effort Cardiovascular: Regular Rate, Regular Rhythm GI/Abdominal Exam: Normal Bowel Sounds Extremities: Normal Inspection Skin: Warm, Dry, Intact Neurological: Cranial Nerves Intact, Reflexes Equal Bilateral Neuro Extensive - Mental Status: Alert, Oriented x3, Normal Mood/Affect - Problem List (1) Acute kidney injury SNOMED Code(s): 92619273, 85877341 ICD Code: N17.9 - ACUTE KIDNEY FAILURE, UNSPECIFIED Status: Resolved Priority: Medium Onset Date: ~04/13/20 Problem Details: keep your good hydrations (2) Anemia SNOMED Code(s): 248408826 ICD Code: D64.9 - ANEMIA, UNSPECIFIED Status: Acute Qualifiers: Anemia type: unspecified type Qualified Code(s): D64.9 - Anemia, unspecified (3) Delirium SNOMED Code(s): 2972592 ICD Code: R41.0 - DISORIENTATION, UNSPECIFIED Status: Resolved (4) Frequent falls SNOMED Code(s): 985886201 ICD Code: R29.6 - REPEATED FALLS Status: Resolved (5) Hypotension SNOMED Code(s): 48895544 ICD Code: I95.9 - HYPOTENSION, UNSPECIFIED Status: Resolved Qualifiers: Hypotension type: hypotension due to hypovolemia Qualified Code(s): I95.89 - Other hypotension; E86.1 - Hypovolemia (6) Weakness SNOMED Code(s): 97376098 ICD Code: R53.1 - WEAKNESS Status: Acute Problem List Initiated/Reviewed/Updated: Yes Orders Last 24hrs: Active Orders 24 hr Category Date Time Status Admission Status [Patient Status] [ADT] Routine ADT 05/09/20 11:48 Active Consistent Carbohydrate Diet [DIET] Diet 05/09/20 Dinner Ordered CORONAVIRUS COVID-19 RAPID [MOLEC] Urgent Lab 05/09/20 16:50 Ordered Acetaminophen [Tylenol Extra Strength] Med 05/09/20 13:49 Active 500 mg PO Q6H PRN Calcium Carbonate/Vitamin D3 [Caltrate 600+D 1500 MG- Med 05/10/20 08:00 Active 400 Units] 1 tab PO DAILY Cholecalciferol (Vitamin D3) [Vitamin D3] Med 05/10/20 08:00 Active 2,000 unit PO DAILY Dextrose 50% in Water Med 05/09/20 13:49 Active 50 ml IVPUSH ASDIRECTED PRN Ferrous Sulfate Med 05/10/20 08:00 Active 325 mg PO DAILY Glucagon,Human Recombinant [GlucaGen] Med 05/09/20 13:49 Active 1 mg IM ASDIRECTED PRN Insulin Aspart [NovoLOG] Med 05/09/20 17:00 Active 2 - 10 unit SUBCUT TIDMEALS Leflunomide [Leflunomide] Med 05/10/20 08:00 Active 10 mg PO DAILY Lidocaine 5% [Lidoderm 5%] Med 05/09/20 13:49 Active 700 mg TRDERM DAILY PRN Magnesium Oxide Med 05/10/20 08:00 Active 400 mg PO BID Melatonin Med 05/09/20 13:49 Active 3 mg PO BEDTIME PRN Metoprolol Tartrate [Lopressor] Med 05/09/20 20:00 Active 25 mg PO BID Nitroglycerin [Nitrostat] Med 05/09/20 13:49 Active 0.4 mg SL ASDIRECTED PRN Pantoprazole [ProTONIX] Med 05/09/20 17:00 Active 40 mg PO BIDMEALS QUEtiapine [SEROquel] Med 05/09/20 20:00 Active 50 mg PO BEDTIME allopurinoL [Zyloprim] Med 05/09/20 20:00 Active 150 mg PO QPM allopurinoL [Zyloprim] Med 05/10/20 08:00 Active 300 mg PO DAILY atorvaSTATin [Lipitor] Med 05/09/20 20:00 Active 20 mg PO BEDTIME buPROPion [Wellbutrin XL] Med 05/10/20 08:00 Active 300 mg PO DAILY lamoTRIgine Med 05/10/20 08:00 Active 50 mg PO DAILY lamoTRIgine [LaMICtaL] Med 05/10/20 08:00 Active 150 mg PO DAILY lisinopriL [Prinivil] Med 05/10/20 08:00 Active 10 mg PO DAILY predniSONE Med 05/10/20 08:00 Active 5 mg PO DAILY Medication Orders Acetaminophen (Tylenol Extra Strength) 500 mg PO Q6H PRN PRN Reason: Mild Pain (1-3) Allopurinol (Zyloprim) 150 mg PO QPM [facility] Allopurinol (Zyloprim) 300 mg PO DAILY [facility] Atorvastatin Calcium (Lipitor) 20 mg PO BEDTIME [facility] Bupropion HCl (Wellbutrin Xl) 300 mg PO DAILY [facility] Calcium Carbonate (Caltrate 600+D 1500 Mg-400 Units) 1 tab PO DAILY [facility] Cholecalciferol (Vitamin D3) 2,000 unit PO DAILY [facility] Dextrose/Water (Dextrose 50% In Water) 50 ml IVPUSH ASDIRECTED PRN PRN Reason: Hypoglycemia Ferrous Sulfate (Ferrous Sulfate) 325 mg PO DAILY [facility] Glucagon (Glucagen) 1 mg IM ASDIRECTED PRN PRN Reason: Hypoglycemia Insulin Aspart (Novolog) 2 - 10 unit SUBCUT TIDMEALS [facility] Last Admin: 05/09/20 16:47 Dose: Not Given Documented by: EDILMA Lamotrigine (Lamictal) 150 mg PO DAILY [facility] Lamotrigine (Lamotrigine) 50 mg PO DAILY [facility] Lidocaine (Lidoderm 5%) 700 mg TRDERM DAILY PRN PRN Reason: Pain Lisinopril (Prinivil) 10 mg PO DAILY [facility] Magnesium Oxide (Magnesium Oxide) 400 mg PO BID [facility] Melatonin (Melatonin) 3 mg PO BEDTIME PRN PRN Reason: Sleep Metoprolol Tartrate (Lopressor) 25 mg PO BID [facility] Nitroglycerin (Nitrostat) 0.4 mg SL ASDIRECTED PRN PRN Reason: Chest Pain Non-Formulary Medication (Leflunomide [Leflunomide]) 10 mg PO DAILY [facility] Pantoprazole Sodium (Protonix) 40 mg PO BIDMEALS [facility] Prednisone (Prednisone) 5 mg PO DAILY [facility] Quetiapine Fumarate (Seroquel) 50 mg PO BEDTIME [facility] Assessment/Plan Comment:: Patient to be admitted for rehabilitation for weakness and continued monitoring of hypotension for management. - Mortality Measure Prognosis:: Good
[2020-05-09 18:17] LABS: CORONAVIRUS COVID-19 NAA NEGATIVE (NEGATIVE)
[2020-05-09] MEDS: Acetaminophen 500 MG Tab PO PRN (18:53)
[2020-05-09] MEDS ORDERED: Non-Formulary Medication 1 Each (Magnesium Oxide [Magnesium Oxide] 500 MG) PO SCH (20:00)
[2020-05-09] MEDS: Lidocaine 5% 700 MG Patch TRDERM PRN (20:40)
[2020-05-09] MEDS: atorvaSTATin 20 MG Tab PO SCH (20:41)
[2020-05-09] MEDS: Allopurinol 300 MG Tab PO SCH (20:42)
[2020-05-09] MEDS: Melatonin 3 MG Tab PO PRN (20:42)
[2020-05-09] MEDS: Metoprolol Tartrate 25 MG Tab PO SCH (20:43)
[2020-05-09] MEDS: Acetaminophen/HYDROcodone 325-5 MG Tab PO PRN (20:46)
[2020-05-10] MEDS: Acetaminophen/HYDROcodone 325-5 MG Tab PO PRN ×3 (05:12→22:42)
[2020-05-10] MEDS: Pantoprazole 40 MG Tab.CR PO SCH ×2 (06:14→16:35)
[2020-05-10] MEDS ORDERED: lamoTRIgine 25 MG Tab ONE (07:38)
[2020-05-10] MEDS: Cholecalciferol (Vitamin D3) 2,000 Unit Cap PO SCH (07:46)
[2020-05-10] MEDS: buPROPion 300 MG Tab.ER PO SCH (07:46)
[2020-05-10] MEDS: predniSONE 5 MG Tab PO SCH (07:46)
[2020-05-10] MEDS: Ferrous Sulfate 325 MG Tab PO SCH (07:46)
[2020-05-10] MEDS: Magnesium Oxide 400 MG Tab PO SCH ×2 (07:46→20:19)
[2020-05-10] MEDS: Allopurinol 300 MG Tab PO SCH ×2 (07:47→20:19)
[2020-05-10] MEDS: Calcium Carbonate/Vitamin D3 1500 MG-400 Units Tab PO SCH (07:47)
[2020-05-10] MEDS: lamoTRIgine 25 MG Tab PO SCH (07:48)
[2020-05-10] MEDS ORDERED: LAMOTRIGINE 200 MG PO SCH (08:00)
[2020-05-10] MEDS ORDERED: buPROPion 150 MG Tab.ER PO SCH (08:00)
[2020-05-10] MEDS: Lisinopril 10 MG Tab PO SCH (09:00)
[2020-05-10] MEDS: Metoprolol Tartrate 25 MG Tab PO SCH ×2 (09:00→20:19)
[2020-05-10] MEDS: LEFLUNOMIDE 10 MG PO SCH (09:04)
[2020-05-10] MEDS: Insulin Aspart 100 Units/ML 3 ML Pen SUBCUT SCH ×3 (09:26→17:20)
[2020-05-10] MEDS: Acetaminophen 500 MG Tab PO PRN (13:13)
[2020-05-10] MEDS: atorvaSTATin 20 MG Tab PO SCH (20:18)
[2020-05-10] MEDS: Melatonin 3 MG Tab PO PRN (20:19)
[2020-05-11] MEDS: Pantoprazole 40 MG Tab.CR PO SCH ×3 (05:53→16:48)
[2020-05-11] MEDS: Metoprolol Tartrate 25 MG Tab PO SCH ×2 (07:54→20:04)
[2020-05-11] MEDS: Lisinopril 10 MG Tab PO SCH (07:54)
[2020-05-11] MEDS: Calcium Carbonate/Vitamin D3 1500 MG-400 Units Tab PO SCH (08:13)
[2020-05-11] MEDS: Ferrous Sulfate 325 MG Tab PO SCH (08:13)
[2020-05-11] MEDS: predniSONE 5 MG Tab PO SCH (08:13)
[2020-05-11] MEDS: LEFLUNOMIDE 10 MG PO SCH (08:13)
[2020-05-11] MEDS: Cholecalciferol (Vitamin D3) 2,000 Unit Cap PO SCH (08:13)
[2020-05-11] MEDS: buPROPion 300 MG Tab.ER PO SCH (08:13)
[2020-05-11] MEDS: Magnesium Oxide 400 MG Tab PO SCH ×2 (08:14→20:03)
[2020-05-11] MEDS: Insulin Aspart 100 Units/ML 3 ML Pen SUBCUT SCH ×3 (08:14→17:15)
[2020-05-11] MEDS: Allopurinol 300 MG Tab PO SCH ×2 (08:14→20:03)
[2020-05-11] MEDS: lamoTRIgine 100 MG Tab PO SCH (08:15)
[2020-05-11] MEDS: Acetaminophen/HYDROcodone 325-5 MG Tab PO PRN ×3 (09:23→23:37)
[2020-05-11] MEDS: atorvaSTATin 20 MG Tab PO SCH (20:02)
[2020-05-11] MEDS: Lidocaine 5% 700 MG Patch TRDERM PRN (20:06)
[2020-05-11] MEDS: lamoTRIgine 25 MG Tab PO SCH (20:50)
[2020-05-12] MEDS: Pantoprazole 40 MG Tab.CR PO SCH ×2 (06:14→18:41)
[2020-05-12] MEDS: Acetaminophen/HYDROcodone 325-5 MG Tab PO PRN ×3 (06:14→21:13)
[2020-05-12] MEDS: Cholecalciferol (Vitamin D3) 2,000 Unit Cap PO SCH (08:11)
[2020-05-12] MEDS: LEFLUNOMIDE 10 MG PO SCH (08:11)
[2020-05-12] MEDS: Ferrous Sulfate 325 MG Tab PO SCH (08:11)
[2020-05-12] MEDS: Calcium Carbonate/Vitamin D3 1500 MG-400 Units Tab PO SCH (08:11)
[2020-05-12] MEDS: Allopurinol 300 MG Tab PO SCH ×2 (08:11→19:52)
[2020-05-12] MEDS: buPROPion 300 MG Tab.ER PO SCH (08:11)
[2020-05-12] MEDS: Metoprolol Tartrate 25 MG Tab PO SCH ×2 (08:11→19:52)
[2020-05-12] MEDS: Magnesium Oxide 400 MG Tab PO SCH ×2 (08:11→19:52)
[2020-05-12] MEDS: lamoTRIgine 100 MG Tab PO SCH (08:12)
[2020-05-12] MEDS: Insulin Aspart 100 Units/ML 3 ML Pen SUBCUT SCH ×3 (08:12→18:41)
[2020-05-12] MEDS: Lisinopril 10 MG Tab PO SCH (08:13)
[2020-05-12] MEDS: predniSONE 5 MG Tab PO SCH (08:13)
[2020-05-12] MEDS: atorvaSTATin 20 MG Tab PO SCH (19:52)
[2020-05-12] MEDS ORDERED: Nystatin Topical Powder 15 GM Bottle ONE (21:12)
[2020-05-12] MEDS: Melatonin 3 MG Tab PO PRN (21:14)
[2020-05-12] MEDS: Nystatin Topical Powder 15 GM Bottle TOP SCH (21:22)
[2020-05-13] MEDS: Acetaminophen/HYDROcodone 325-5 MG Tab PO PRN ×3 (05:38→20:23)
[2020-05-13] MEDS: Pantoprazole 40 MG Tab.CR PO SCH ×3 (05:38→17:21)
[2020-05-13] MEDS: Metoprolol Tartrate 25 MG Tab PO SCH ×2 (07:16→20:21)
[2020-05-13] MEDS: Lisinopril 10 MG Tab PO SCH (07:16)
[2020-05-13] MEDS: LEFLUNOMIDE 10 MG PO SCH (07:29)
[2020-05-13] MEDS: Cholecalciferol (Vitamin D3) 2,000 Unit Cap PO SCH (07:30)
[2020-05-13] MEDS: Calcium Carbonate/Vitamin D3 1500 MG-400 Units Tab PO SCH (07:30)
[2020-05-13] MEDS: Insulin Aspart 100 Units/ML 3 ML Pen SUBCUT SCH ×2 (07:30→18:53)
[2020-05-13] MEDS: predniSONE 5 MG Tab PO SCH (07:30)
[2020-05-13] MEDS: Allopurinol 300 MG Tab PO SCH ×2 (07:30→20:20)
[2020-05-13] MEDS: Ferrous Sulfate 325 MG Tab PO SCH (07:30)
[2020-05-13] MEDS: lamoTRIgine 100 MG Tab PO SCH (07:30)
[2020-05-13] MEDS: buPROPion 300 MG Tab.ER PO SCH (07:30)
[2020-05-13] MEDS: Magnesium Oxide 400 MG Tab PO SCH ×2 (07:30→20:20)
[2020-05-13] MEDS: Nystatin Topical Powder 15 GM Bottle TOP SCH ×2 (08:07→20:25)
[2020-05-13] MEDS: atorvaSTATin 20 MG Tab PO SCH (20:19)
[2020-05-13] MEDS: Melatonin 3 MG Tab PO PRN (20:26)
[2020-05-14] MEDS: Acetaminophen/HYDROcodone 325-5 MG Tab PO PRN (04:17)
[2020-05-14] MEDS: buPROPion 300 MG Tab.ER PO SCH (08:44)
[2020-05-14] MEDS: LEFLUNOMIDE 10 MG PO SCH (08:45)
[2020-05-14] MEDS: Calcium Carbonate/Vitamin D3 1500 MG-400 Units Tab PO SCH (08:45)
[2020-05-14] MEDS: Cholecalciferol (Vitamin D3) 2,000 Unit Cap PO SCH (08:45)
[2020-05-14] MEDS: Nystatin Topical Powder 15 GM Bottle TOP SCH (08:45)
[2020-05-14] MEDS: predniSONE 5 MG Tab PO SCH (08:45)
[2020-05-14] MEDS: Allopurinol 300 MG Tab PO SCH (08:45)
[2020-05-14] MEDS: Ferrous Sulfate 325 MG Tab PO SCH (08:45)
[2020-05-14] MEDS: Magnesium Oxide 400 MG Tab PO SCH (08:45)
[2020-05-14] MEDS: lamoTRIgine 100 MG Tab PO SCH (08:46)
[2020-05-14] MEDS: Metoprolol Tartrate 25 MG Tab PO SCH (08:47)
[2020-05-14] MEDS: Insulin Aspart 100 Units/ML 3 ML Pen SUBCUT SCH (08:47)
[2020-05-14] MEDS: Pantoprazole 40 MG Tab.CR PO SCH (08:47)
[2020-05-14 08:48] VITALS: BP 142/66; PULSE 58
[2020-05-14] MEDS: Lisinopril 10 MG Tab PO SCH (08:48)
--- NOTE | 2020-05-14 17:19 | PCM.DCSUM1 ---
Discharge Summary - Discharge Data Discharge Date: 05/14/20 Discharge Disposition: Home, Self-Care 01 Condition: Good - Referral to Home Health Primary Care Physician: PCP None - Discharge Diagnosis/Problem(s) (1) Acute kidney injury SNOMED Code(s): 68007897, 08491820 ICD Code: N17.9 - ACUTE KIDNEY FAILURE, UNSPECIFIED Status: Resolved Priority: Medium Onset Date: ~04/13/20 Problem Details: keep your good hydrations (2) Anemia SNOMED Code(s): 910862648 ICD Code: D64.9 - ANEMIA, UNSPECIFIED Status: Acute Qualifiers: Anemia type: unspecified type Qualified Code(s): D64.9 - Anemia, unspecified (3) Delirium SNOMED Code(s): 6913966 ICD Code: R41.0 - DISORIENTATION, UNSPECIFIED Status: Resolved (4) Frequent falls SNOMED Code(s): 917833755 ICD Code: R29.6 - REPEATED FALLS Status: Resolved (5) Hypotension SNOMED Code(s): 42767815 ICD Code: I95.9 - HYPOTENSION, UNSPECIFIED Status: Resolved Qualifiers: Hypotension type: hypotension due to hypovolemia Qualified Code(s): I95.89 - Other hypotension; E86.1 - Hypovolemia (6) Weakness SNOMED Code(s): 01118547 ICD Code: R53.1 - WEAKNESS Status: Acute - Patient Summary/Data Consults: Consultations 05/09/20 17:05 OT Evaluation and Treatment [CONS] Routine Please Evaluate and Treat. OT Reason for Consult: Strengthening This query below is only for informational purposes and is not editable. Admission Diagnosis/Problem: Weakness PT Evaluation and Treatment [CONS] Routine Please Evaluate and Treat. PT Reason for Consult: Balance This query below is only for informational purposes and is not editable. 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 [Consult to Wound Care Services] [CONS] Routine Comment: pt diabetic Physician Instructions: assess eschar to left great toe Reason for Consult: left great toe eschar Person Notified: rickie malagonder Date Notified: 05/10/20 - Patient Instructions Diet: Diabetic Diet - Discharge Plan Home Medications: Home Meds buPROPion [buPROPion XL] 300 mg PO DAILY 07/29/14 [History] lamoTRIgine [Lamictal] 200 mg PO DAILY 06/28/17 [History] allopurinoL [Zyloprim] 150 mg PO QPM 09/19/18 [History] allopurinoL [Zyloprim] 300 mg PO DAILY 09/19/18 [History] predniSONE [Prednisone] 5 mg PO DAILY 09/19/18 [History] Leflunomide 10 mg PO DAILY 09/20/19 [History] Ferrous Sulfate [Iron] 325 mg PO DAILY 02/20/20 [History] Calcium Carbonate/Vitamin D3 [Calcium 600-Vit D3 400 Tablet] 1 each PO DAILY 03/02/20 [History] Pantoprazole Sodium [Protonix] 40 mg PO BIDMEALS 03/02/20 [History] Insulin Aspart [NovoLOG] 0 unit SUBCUT TIDMEALS 04/13/20 [History] QUEtiapine [SEROquel] 50 mg PO BEDTIME 04/13/20 [History] Acetaminophen 500 mg PO Q6H PRN 05/09/20 [History] Cholecalciferol (Vitamin D3) [Vitamin D3] 2,000 unit PO DAILY 05/09/20 [History] Lidocaine [Lidoderm] 1 patch TRDERM DAILY PRN 05/09/20 [History] Magnesium Oxide 500 mg PO BID 05/09/20 [History] Melatonin 3 mg PO BEDTIME PRN 05/09/20 [History] Metoprolol Tartrate 25 mg PO BID 05/09/20 [History] Nitroglycerin 0.4 mg SL ASDIRECTED PRN 05/09/20 [History] atorvaSTATin [Lipitor] 20 mg PO BEDTIME 05/09/20 [History] lisinopriL [Lisinopril] 10 mg PO DAILY 05/09/20 [History] Patient Handouts: Fall Prevention in the Home, Adult, [id number], Rib Fracture, [id number] - Discharge Summary/Plan Comment DC Time >30 min.: Yes Discharge Summary/Plan Comment: Discussed in length regarding health, management and follow up in clinic. Patient refuses to be admitted to care center and agrees to follow up in clinic as directed. Discussed close monitoring of BP and medication changes. Patient understands the need to follow up and and to follow medications and compliance. Home health to visit tomorrow. - Patient Data Vitals - Most Recent: Last Vital Signs Temp 36.4 C 05/14/20 08:00 Pulse 58 L 05/14/20 08:47 Resp 18 05/14/20 08:00 BP 142/66 H 05/14/20 08:48 Pulse Ox 100 05/14/20 08:00 Weight - Most Recent: 109.316 kg Lab Results - Last 24 hrs: Laboratory Results - last 24 hr 05/13/20 05/14/20 Range/Units 16:20 06:25 POC Glucose 181 H 143 H (74-110) mg/dL Med Orders - Current: Current Medications Discontinued Medications Acetaminophen (Tylenol Extra Strength) 500 mg PO Q6H PRN PRN Reason: Mild Pain (1-3) Last Admin: 05/10/20 13:13 Dose: 500 mg Documented by: Hydrocodone Bitart/Acetaminophen (Pep 325-5 Mg) 1 tab PO Q4H PRN PRN Reason: Pain Last Admin: 05/14/20 04:17 Dose: 1 tab Documented by: Allopurinol (Zyloprim) 150 mg PO QPM [facility] Last Admin: 05/13/20 20:20 Dose: 150 mg Documented by: Allopurinol (Zyloprim) 300 mg PO DAILY [facility] Last Admin: 05/14/20 08:45 Dose: 300 mg Documented by: Atorvastatin Calcium (Lipitor) 20 mg PO BEDTIME [facility] Last Admin: 05/13/20 20:19 Dose: 20 mg Documented by: Bupropion HCl (Wellbutrin Xl) 300 mg PO DAILY [facility] Last Admin: 05/14/20 08:44 Dose: 300 mg Documented by: Calcium Carbonate (Caltrate 600+D 1500 Mg-400 Units) 1 tab PO DAILY [facility] Last Admin: 05/14/20 08:45 Dose: 1 tab Documented by: Cholecalciferol (Vitamin D3) 2,000 unit PO DAILY [facility] Last Admin: 05/14/20 08:45 Dose: 2,000 unit Documented by: Dextrose/Water (Dextrose 50% In Water) 50 ml IVPUSH ASDIRECTED PRN PRN Reason: Hypoglycemia Ferrous Sulfate (Ferrous Sulfate) 325 mg PO DAILY [facility] Last Admin: 05/14/20 08:45 Dose: 325 mg Documented by: Glucagon (Glucagen) 1 mg IM ASDIRECTED PRN PRN Reason: Hypoglycemia Insulin Aspart (Novolog) 2 - 10 unit SUBCUT TIDMEALS [facility]; Protocol Last Admin: 05/14/20 08:47 Dose: Not Given Documented by: Lamotrigine (Lamictal) 150 mg PO DAILY [facility] Last Admin: 05/11/20 20:50 Dose: Not Given Documented by: Lamotrigine (Lamotrigine) 50 mg PO DAILY [facility] Last Admin: 05/11/20 20:50 Dose: Not Given Documented by: Lamotrigine (Lamotrigine) Confirm Administered Dose 50 mg .ROUTE .[facility] Stop: 05/10/20 07:39 Last Admin: 05/10/20 08:59 Dose: Not Given Documented by: Lamotrigine (Lamotrigine) 200 mg PO DAILY [facility] Last Admin: 05/14/20 08:46 Dose: 200 mg Documented by: Lidocaine (Lidoderm 5%) 700 mg TRDERM DAILY PRN PRN Reason: Pain Last Admin: 05/11/20 20:06 Dose: 700 mg Documented by: Lisinopril (Prinivil) 10 mg PO DAILY [facility] Last Admin: 05/14/20 08:48 Dose: Not Given Documented by: Magnesium Oxide (Magnesium Oxide) 400 mg PO BID [facility] Last Admin: 05/14/20 08:45 Dose: 400 mg Documented by: Melatonin (Melatonin) 3 mg PO BEDTIME PRN PRN Reason: Sleep Last Admin: 05/13/20 20:26 Dose: 3 mg Documented by: Metoprolol Tartrate (Lopressor) 25 mg PO BID [facility] Last Admin: 05/14/20 08:47 Dose: Not Given Documented by: Nitroglycerin (Nitrostat) 0.4 mg SL ASDIRECTED PRN PRN Reason: Chest Pain Non-Formulary Medication (Leflunomide [Leflunomide]) 10 mg PO DAILY [facility] Last Admin: 05/14/20 08:45 Dose: 10 mg Documented by: Nystatin (Nystop) Confirm Administered Dose 15 gm .ROUTE .[facility] ONE Stop: 05/12/20 21:13 Last Admin: 05/12/20 21:22 Dose: Not Given Documented by: Nystatin (Nystop) 0 gm TOP BID [facility] Last Admin: 05/14/20 08:45 Dose: 1 applic Documented by: Pantoprazole Sodium (Protonix) 40 mg PO BIDMEALS [facility] Last Admin: 05/09/20 20:52 Dose: Not Given Documented by: Pantoprazole Sodium (Protonix) 40 mg PO BID@0700,1700 [facility] Last Admin: 05/14/20 08:47 Dose: 40 mg Documented by: Prednisone (Prednisone) 5 mg PO DAILY [facility] Last Admin: 05/14/20 08:45 Dose: 5 mg Documented by: Quetiapine Fumarate (Seroquel) 50 mg PO BEDTIME [facility] Last Admin: 05/13/20 20:21 Dose: 50 mg Documented by: Tuberculin PPD (Aplisol) 5 unit IDERM ONETIME ONE Stop: 05/09/20 14:53 Last Admin: 05/09/20 20:47 Dose: 5 unit Documented by:
== END 2020-05-14 11:45 | disposition home health service (06) | DRG 948 ==
LOC: UNDOADMIN 11:05 → LB.MS 11:05
PROVIDERS: ADMIT Family Medicine; ATTEND Family Medicine
DX: R53.1 Weakness (principal); N17.9 Acute kidney failure, unspecified; D64.9 Anemia, unspecified; R41.0 Disorientation, unspecified; R29.6 Repeated falls; I95.89 Other hypotension; E86.1 Hypovolemia; Z79.52 Long term (current) use of systemic steroids; Z79.899 Other long term (current) drug therapy; Z79.4 Long term (current) use of insulin; Z88.5 Allergy status to narcotic agent; Z88.8 Allergy status to other drugs, medicaments and biological substances; H54.7 Unspecified visual loss; I25.10 Atherosclerotic heart disease of native coronary artery without angina pectoris; E78.00 Pure hypercholesterolemia, unspecified; I25.2 Old myocardial infarction; Z95.5 Presence of coronary angioplasty implant and graft; H91.90 Unspecified hearing loss, unspecified ear; E11.21 Type 2 diabetes mellitus with diabetic nephropathy; R32 Unspecified urinary incontinence; N40.0 Benign prostatic hyperplasia without lower urinary tract symptoms; M19.90 Unspecified osteoarthritis, unspecified site; M10.9 Gout, unspecified; E11.42 Type 2 diabetes mellitus with diabetic polyneuropathy; F41.9 Anxiety disorder, unspecified; F31.9 Bipolar disorder, unspecified; Z95.1 Presence of aortocoronary bypass graft; Z20.822 Contact with and (suspected) exposure to COVID-19
CPT/HCPCS: 82962; 86580; 97161-GP; 97165-GO; A9270-GY; J7512; U0002

== ENCOUNTER 2020-08-21 16:00 | Emergency (ER) | payer MEDICARE, OTHER, MEDICAID ==
[~2020-08-21 16:00] MED LIST: Amiodarone 150 MG/3 ML SDV IVPUSH SCH; Sodium Chloride 0.9% 1,000 ML IV SCH
[2020-08-21] MEDS: EPINEPHrine 1:10,000 1 MG/10 ML Syringe IVPUSH ONE ×5 (16:07→16:37)
[2020-08-21] MEDS ORDERED: Succinylcholine 200 MG/10 ML MDV IV ONE (16:14)
[2020-08-21] MEDS ORDERED: Etomidate 2 MG/ML 20 ML SDV IVPUSH ONE (16:14)
[2020-08-21] MEDS ORDERED: Sodium Bicarbonate 8.4% 50 MEQ/50 ML Syringe IVPUSH ONE (16:26)
[2020-08-21] MEDS ORDERED: 50% Dextrose in Water 50 ML Syringe IVPUSH ONE (16:30)
--- NOTE | 2020-08-21 17:55 | CR ---
Date of Service: 08/21/20 Clinical Data: CHECK INTUBATION PLACEMENT AP CHEST: The exam is poor quality, under penetration and artifact overlying the lower chest. There is an endotracheal tube in place. It is deviated to the right suggesting that it is within the right mainstem bronchus. The lungs are not adequately seen. No other significant findings. The patient's physician was notified of the endotracheal tube position. [id number] MTDD
--- NOTE | 2020-08-21 18:09 | EDM.PDOC ---
ED HPI GENERAL MEDICAL PROBLEM - General Chief Complaint: CPR in Progress Stated Complaint: TORIE WOODWARD Time Seen by Provider: 08/21/20 16:15 Source of Information: Reports: Patient History Limitations: Reports: No Limitations - History of Present Illness INITIAL COMMENTS - FREE TEXT/NARRATIVE: torie woodward in the ambulatory clinic. upon arrival - unresponsive - agonal breathing CPR was started with chest compression and ambubag. Masoud chest compression and was moved to the ER Analysis showed shockable rhythm. Airways secured with 7.5 ETT - confirmed with CO2 return IOs x2 multiple rounds of epinephrines and shocks - no response. Amiodarone and bicarbs. pupils dilated and non reactive - Related Data Allergies Allergy/AdvReac Type Severity Reaction Status Date / Time morphine Allergy Cannot Verified 05/03/20 13:51 Remember Serotonin 5HT-3 Antagonists Allergy Cannot Verified 05/09/20 14:14 Remember fentanyl AdvReac Cannot Verified 05/03/20 13:51 Remember Home Meds: Home Meds buPROPion [buPROPion XL] 300 mg PO DAILY 07/29/14 [History] lamoTRIgine [Lamictal] 200 mg PO DAILY 06/28/17 [History] allopurinoL [Zyloprim] 150 mg PO QPM 09/19/18 [History] allopurinoL [Zyloprim] 300 mg PO DAILY 09/19/18 [History] predniSONE [Prednisone] 5 mg PO DAILY 09/19/18 [History] Leflunomide 10 mg PO DAILY 09/20/19 [History] Ferrous Sulfate [Iron] 325 mg PO DAILY 02/20/20 [History] Calcium Carbonate/Vitamin D3 [Calcium 600-Vit D3 400 Tablet] 1 each PO DAILY 03/02/20 [History] Pantoprazole Sodium [Protonix] 40 mg PO BIDMEALS 03/02/20 [History] Insulin Aspart [NovoLOG] 0 unit SUBCUT TIDMEALS 04/13/20 [History] QUEtiapine [SEROquel] 50 mg PO BEDTIME 04/13/20 [History] Acetaminophen 500 mg PO Q6H PRN 05/09/20 [History] Cholecalciferol (Vitamin D3) [Vitamin D3] 2,000 unit PO DAILY 05/09/20 [History] Lidocaine [Lidoderm] 1 patch TRDERM DAILY PRN 05/09/20 [History] Magnesium Oxide 500 mg PO BID 05/09/20 [History] Melatonin 3 mg PO BEDTIME PRN 05/09/20 [History] Metoprolol Tartrate 25 mg PO BID 05/09/20 [History] Nitroglycerin 0.4 mg SL ASDIRECTED PRN 05/09/20 [History] atorvaSTATin [Lipitor] 20 mg PO BEDTIME 05/09/20 [History] lisinopriL [Lisinopril] 10 mg PO DAILY 05/09/20 [History] Past Medical History HEENT History: Reports: Impaired Vision Other HEENT History: [place] Cardiovascular History: Reports: CAD, Heart Failure, High Cholesterol, Hypertension, [place], Stents Other Cardiovascular History: stent 1993 Respiratory History: Reports: Other (See Below) Other Respiratory History: Emphysema Gastrointestinal History: Reports: Cirrhosis, Other (See Below) Other Gastrointestinal History: Hepatic encephalopathy, esophageal varices Genitourinary History: Reports: Diabetic Nephropathy, Renal Disease, Urinary Incontinence Other Genitourinary History: BPH, fiborus Musculoskeletal History: Reports: Arthritis, Gout, RA, Other (See Below) Other Musculoskeletal History: finger fractures Neurological History: Reports: Neuropathy, Diabetic Psychiatric History: Reports: Anxiety, Bipolar, Depression, Panic Attack Endocrine/Metabolic History: Reports: Diabetes, Type II Hematologic History: Reports: Anemia Immunologic History: Reports: None Oncologic (Cancer) History: Reports: None Dermatologic History: Reports: Other (See Below) Other Dermatologic History: Medication for SA lesions - Infectious Disease History Infectious Disease History: Reports: Chicken Pox, Measles - Past Surgical History HEENT Surgical History: Reports: None Cardiovascular Surgical History: Reports: Coronary Artery Bypass Other Cardiovascular Surgeries/Procedures: States he's had 2 surgeries on sternum since his bypass surgery to try to help sternum heal together GI Surgical History: Reports: EGD Male Surgical History: Reports: None Musculoskeletal Surgical History: Reports: None Social & Family History - Family History Family Medical History: No Pertinent Family History - Caffeine Use Caffeine Use: Reports: Coffee ED ROS GENERAL - Review of Systems Review Of Systems: Unable To Obtain Reason Not Obtained: due to patient's status ED EXAM, CPR - Physical Exam Exam: Not Obtained Limited By: Unresponsive Eye Exam: Bilateral Eye: Other (dilated non reactive) Course - Orders/Labs/Meds Labs: Laboratory Tests 08/21/20 08/21/20 08/21/20 Range/Units 16:17 16:17 16:17 WBC 12.0 H D (4.0-11.0) K/uL RBC 5.07 (4.50-6.50) M/uL Hgb 13.8 (13.0-18.0) g/dL Hct 42.7 (40.0-54.0) % MCV 84 (76-96) fL MCH 27.2 (27.0-32.0) pg MCHC 32.3 (31.0-35.0) g/dL RDW 18.4 H (11.0-16.0) % Plt Count 181 D (150-400) K/uL MPV 13.0 H (6.0-10.0) fL Neut % (Auto) 76.0 H (45.0-70.0) % Lymph % (Auto) 12.1 L (20.0-40.0) % [place] % (Auto) 9.2 (3.0-10.0) % Eos % (Auto) 2.3 (1.0-5.0) % Baso % (Auto) 0.4 (0.0-0.5) % Neut # (Auto) 9.13 H (2.00-7.50) K/uL Lymph # (Auto) 1.45 L (1.50-4.00) K/uL [place] # (Auto) 1.10 H (0.20-0.80) K/uL Eos # (Auto) 0.28 (0.04-0.40) K/uL Baso # (Auto) 0.05 (0.02-0.10) K/uL D-Dimer, Quantitative 997 H (0-400) ng/mL Sodium 136 (136-145) mmol/L Potassium 2.3 L* D (3.5-5.1) mmol/L Chloride 91 L (98-107) mmol/L Carbon Dioxide 39.7 H D (21.0-32.0) mmol/L Anion Gap 7.6 (5.0-15.0) mmol/L BUN 69 H* D (8-26) mg/dL Creatinine 2.05 H D (0.70-1.30) mg/dL Est Cr Clr Drug Dosing TNP Estimated GFR (MDRD) 33 L (>60) MLS/MIN BUN/Creatinine Ratio 33.7 H (6-25) Glucose 56 L D (74-100) mg/dL Calcium 9.7 (8.5-10.1) mg/dL Magnesium 2.1 (1.8-2.4) mg/dL Total Bilirubin 1.8 H (0.0-1.0) mg/dL AST 59 H (15-37) U/L ALT 41 (12-78) U/L Alkaline Phosphatase 298 H (46-116) U/L Creatine Kinase 72 (21-232) U/L Troponin I 0.122 H* D (0.000-0.060) ng/mL Total Protein 8.4 H (6.4-8.2) g/dL Albumin 3.5 (3.4-5.0) g/dL Globulin 4.9 H (2.2-4.2) g/dL Albumin/Globulin Ratio 0.7 L (0.8-2.0) - Re-Assessments/Exams Free Text/Narrative Re-Assessment/Exam: ACLS resuscitation for almost an hour - no response Departure - Departure Time of Disposition: 16:40 Disposition: 20 Clinical Impression: Cardiac arrest - Discharge Information *PRESCRIPTION DRUG MONITORING PROGRAM REVIEWED*: Not Applicable *COPY OF PRESCRIPTION DRUG MONITORING REPORT IN PATIENT JACKY: Not Applicable Referrals: PCP,None [Primary Care Provider] - Forms: ED Department Discharge - Problem List & Annotations (1) Cardiac arrest SNOMED Code(s): 724622230 Code(s): I46.9 - CARDIAC ARREST, CAUSE UNSPECIFIED Status: Acute Priority: High Current Visit: Yes - Problem List Review Problem List Initiated/Reviewed/Updated: Yes - Assessment/Plan Plan: brother was contacted follow hospital protocol
== END 2020-08-21 16:40 | disposition expired ==
LOC: LB.ED 16:15
DX: I46.9 Cardiac arrest, cause unspecified (principal); E11.40 Type 2 diabetes mellitus with diabetic neuropathy, unspecified; I25.10 Atherosclerotic heart disease of native coronary artery without angina pectoris; I11.0 Hypertensive heart disease with heart failure; I50.9 Heart failure, unspecified; I25.2 Old myocardial infarction; Z95.5 Presence of coronary angioplasty implant and graft; Z79.899 Other long term (current) drug therapy; Z88.6 Allergy status to analgesic agent; Z88.8 Allergy status to other drugs, medicaments and biological substances
CPT/HCPCS: 31500; 36415; 71045; 80053; 82550; 82947; 83735; 84484; 85025; 85379; 92950; 96374; 99285; J0171; J0282; J0330; J3490; J7030